=== PATIENT | female | born 1950 | race Caucasian/White ===

== ENCOUNTER 2024-02-04 20:37 | Inpatient (IN) | payer MEDICARE, SELFPAY ==
[2024-02-04] VITALS (14 sets, daily range): BP systolic 81–115; BP diastolic 33–90; BMI 27.1; BMI 25.9
[2024-02-04 16:09] LABS: Glucose - Point of Care 117 mg/dl (70-99)
--- NOTE | 2024-02-04 17:07 | ED.GENMED ---
History of Present Illness
General
Chief Complaint: Weakness
Source: patient and family
Time Seen by Provider: 02/04/24 16:38
Travel History
Have you had any contact with someone who has COVID-19?: No
Do you have any symptoms of coronavirus? Fever > 100 degrees, chills, cough, shortness of breath, sore throat, loss of taste or smell, muscle aches, or headache?: No
History of Present Illness
History of Present Illness:
73-year-old female with past medical history of colon cancer status post tumor removal, recent diagnosis of acute kidney injury needing dialysis and metabolic encephalopathy presenting to the emergency department via EMS from [facility] for
evaluation of left-sided weakness (triage states right-sided but family notes it is the left) but has been ongoing since yesterday. Patient's background history includes being diagnosed with colon cancer after having a bowel obstruction diagnosed
in July resulting in surgery to remove the tumor as well as multiple lymph nodes. Patient was treated with a course of chemotherapy that was supposed to be further preventative but got quite ill off of this chemo regimen and ended up in the
hospital for profound dehydration and since that time has developed worsening renal function to now needing dialysis and progressively declining. Family states that patient's drainage inspector was concerned for aluminum toxicity after not being able to
figure out why patient's labs were getting worse despite continuous treatment. Family notes that patient went from being fully functionable and living at home on her own 6 weeks ago to needing near [id number] care and continues to get sicker.
Patient's drainage inspector recommended she come to the emergency department today.
Past History
Past History
ED Past Medical History: Cancer, NIDDM and Renal failure
ED Past Surgical History: Bowel resection
Social History
Tobacco: Non-smoker
Alcohol: None
Drug: None
Living: penitentiary
Review of Systems
Review of Systems
All Other Systems: ROS reviewed and negative except as documented in HPI and ROS
Phy Exam
Physical Exam
Physical Exam:
GENERAL: Alert , in no apparent distress
EYE: clear conjunctiva b/l
HEAD: NCAT
ENT: o/p clr, mmm.
CARDIAC: Regular rate and rhythm .
LUNGS: Clear breath sounds bilaterally, no acute respiratory distress, no wheezes/rales/rhonchi, dialysis port to the left upper chest wall
ABDOMEN: Soft, without focal tenderness, no r/g, no cvat
back: Stage II pressure ulcer without surrounding cellulitic changes
Rectal exam: Chaperoned by ED MARGOT Hammer: Yellowish stool, heme-negative
NEUROLOGICAL: Alert and oriented x 3, 4 out of 5 strength to the right lower extremity when attempting to lift off the bed, 3 out of 5 strength to the left lower extremity when attempting to lift off the bed. Sensation is grossly intact to light
touch to the bilateral lower extremities. 5 out of 5 upper extremity strength bilateral with normal sensation. No dysmetria or dysarthria/aphasia
SKIN: Warm and dry, skin intact.
MUSCULOSKELETAL: No edema, well perfused.
PSYCH: Normal and appropriate interaction.
Scores
Heart Failure Risk
Heart Failure Risk Score: Not Applicable
Heart Score for Chest Pain Patients
STEMI patient?: Not applicable
Withdrawal Assessment of Alcohol
Withdrawal Assessment Completed?: Not applicable
Course
Orders/Labs/Results
Orders:
Orders
02/04/24 16:07
Electrocardiogram (*1) Urgent
Reason for Study: Fatigue / Weakness
EKG- Treatment ONCE
02/04/24 16:53
CT Head W/o Iv Contrast Urgent
Comment:
Reason For Exam: left sided weakness
Cardiac Monitoring- Treatment ONCE
02/04/24 17:10
Aluminum [S] Urgent
CPK [Creatine Phosphokinase] Urgent
Complete Blood Count/With Diff Urgent
Comprehensive Metabolic Panel Urgent
Lactic Acid Q4H
Comment: CANCEL 2nd LACTIC ACID IF 1st LACTIC ACID IS LESS THAN 2
PTT Urgent
Prothrombin Time Urgent
Blood Culture Q30M
KAM Source: Blood/Venous
Specimen Description:
Blood Culture Q30M
KAM Source: Blood/Venous
Specimen Description:
02/04/24 17:58
Blood Bank Products [* Blood Bank Products] Urgent
Blood Bank Products: *Packed RBC Leuko(PRBC's)
Quantity: 1
Transfuse Today: Yes
Reason: Anemia
02/04/24 18:16
Type+Screen Urgent
02/04/24 18:35
Blood Group&Type Urgent
BBK Wristband Number:
02/04/24 20:19
Admit/Transfer Patient As Directed
Co-Sign Provider:
Level of Care: Inpatient admission
Assign to:: IMU- Intermediate Care
Physician / Group: marino
Diagnosis: anemia, weakness, aluminum toxicity
Reason for Hospitalization: anemia, weakness, aluminum toxicity
Expected length of stay greater than two midnights?: Yes
ELOS- Estimated Length of Stay in days: 2
I certify the patient meets the requirements for IP care: Yes
02/04/24 20:20
Code Status As Directed
Resuscitation Status: Full Code
02/04/24 21:00
0.9% Sodium Chloride 500 ml [Nss] 500 ml IV 75 mls/hr
Abnormal Lab Results
02/04/24 02/04/24 02/04/24
16:08 17:10 18:16
RBC 2.68 L 10^6/uL
(4.20-5.40)
Hgb 6.8 L* g/dL
(12.0-16.0)
Hct 21.2 L %
(37.0-47.0)
MCV 79.1 L fL
(81.0-99.0)
MCH 25.4 L pg
(27.0-31.0)
MCHC 32.1 L g/dL
(33.0-37.0)
RDW 18.6 H %
(11.5-14.5)
Absolute Neuts (auto) 6.8 H 10^3/uL
(1.4-6.5)
Lymphocytes % 19.7 L %
(20.5-51.1)
PT 17.9 H Sec
(11.4-14.6)
APTT 43.5 H Sec
(23.4-35.0)
Potassium 2.7 L* mmol/L
(3.5-5.1)
Creatinine 1.8 H mg/dL
(0.6-1.0)
Glucose 122 H mg/dl
(70-99)
Calcium 8.2 L mg/dl
(8.4-10.2)
Alkaline Phosphatase 137 H U/L
(38-126)
Creatine Kinase 21 L U/L
(30-135)
Total Protein 5.7 L g/dl
(6.3-8.2)
Albumin 2.5 L g/dl
(3.5-5.0)
POC Glucose 117 H mg/dl
(70-99)
Crossmatch IS Only See Detail
02/04/24 17:10
02/04/24 17:10
Vital Signs
Initial and Last Documented VS:
Initial Vital Signs
Resp BP Pulse Ox
10 81/66 99
02/04/24 16:05 02/04/24 16:05 02/04/24 16:05
Last Documented Vital Signs
Temp Pulse Resp BP Pulse Ox
99.6 F 73 20 99/53 98
02/04/24 19:49 02/04/24 20:15 02/04/24 20:15 02/04/24 19:51 02/04/24 20:15
MDM/Problems Addressed
Differential Diagnosis Includes:
Electrolyte abnormality, CVA, malignancy, aluminum toxicity
MDM/Problems Addressed:
73-year-old female presenting to the emergency department for evaluation of progressively worsening weakness in the setting of newly diagnosed renal disease requiring dialysis. Patient had full dialysis session yesterday. It is unclear as to why
the patient was not sent to the emergency department yesterday with the weakness being noted. Patient states she believes she was not getting as much effort as she could have during therapy but there is fairly pronounced left-sided lower extremity
weakness on exam. Patient's hypotension here is reportedly her baseline per patient as well as family. Will check labs, CT of the head. Patient's daughter provided me with a telephone number for patient's drainage inspector and will contact them
following labs being resulted. Anticipate admission
Chronic conditions affecting care: Kidney disease and Cancer
Acute Exacerbation and/or Progression of Chronic Illness: Kidney disease and Cancer
*Radiology
Radiology exam reviewed: radiology read reviewed
*Pulse Oximetry
Patient hypoxic: no
*EKG
Interpreted by ED Provider?: Yes
Comparison EKG: no changes
Heart Rate: 78
Rate: normal
Ischemia: no ischemia
*Safety Relief Valve Technician Interpretation
Rate: normal
Rhythm: sinus
*Critical Care Note
Total Time (30-74mins, 75-104mins- exclusive of procedures): Not Applicable
Patient Management
Discussion with other providers: Hospitalist
Escalation/DeEscalation of care consider admission/obs:
Patient CT is unremarkable for any pathology. Hemoglobin 6.8. Potassium is 2.7 however patient was dialyzed today. Will leave this as do not want to over replete and cause any complications. Given patient's complexity combined with her acute
anemia plan to admit. Patient was consented for 1 unit of blood. Hospitalist team is aware and accepts for continued evaluation and treatment.
ED Attending Note
-
Portions of this chart may have been created with voice recognition software.� Occasional wrong word or��sound alike� substitutions may have occurred due to the inherent limitations of voice recognition software.
Discharge Plan
Departure
Patient Disposition: Admit
Date of Disposition: 02/04/24
Time of Disposition: 19:15
Presentation/result/management discussed w/ accepting MD/DO: Hospitalist
Discharge Problem:
Anemia, Acute hypokalemia, CKD (chronic kidney disease), Weakness
Prescriptions:
No Action
acetaminophen 325 mg Tablet
650 mg PO Q6H PRN (Reason: mild pain)
acetaminophen 650 mg Suppository
650 mg MO Q4H PRN (Reason: temp>100)
albuterol sulfate 2.5 mg /3 mL (0.083 %) Solution For Nebulization
2.5 mg INHALATION R Q6 PRN (Reason: sob/wheezing)
ondansetron HCl 8 mg Tablet
8 mg PO Q8H PRN (Reason: nausea/vomiting)
midodrine 5 mg Tablet
5 mg PO Q8H PRN (Reason: hypotention on dialysis days)
diphenoxylate-atropine 2.5-0.025 mg Tablet
2 tab PO Q4H
prochlorperazine maleate 10 mg Tablet
10 mg PO Q6H PRN (Reason: nausea/vomiting)
tramadol 50 mg Tablet
50 mg PO Q6H PRN (Reason: moderate pain)
diphenhydramine HCl 50 mg/mL Solution
25 mg IV MOWEFR
Rx Instructions:
1.5 hrs into dialysis treatment
lorazepam 0.5 mg Tablet
0.5 mg PO HS
ascorbic acid (vitamin C) 500 mg Tablet
500 mg PO BID
Santyl 250 unit/gram Ointment
1 applic TOPICAL QPM
Rx Instructions:
apply to sacroglutel area, apply to L ishium
Santyl 250 unit/gram Ointment
1 applic TOPICAL PRN PRN (Reason: would care/soilage/dislodgement)
Rx Instructions:
apply to sacroglutel area, apply to L ishium
Triphrocaps 1 mg Capsule
1 cap PO DAILY
insulin lispro [Humalog KwikPen Insulin] 100 unit/mL Insulin Pen
1 - 5 sliding scale dose SC QID
Rx Instructions:
if 150-199= 1; 200-249= 2; 250-299= 3; 300-349= 4; 350-399= 5
insulin glargine [Lantus Solostar U-100 Insulin] 100 unit/mL (3 mL) Insulin Pen
12 unit SC HS
octreotide acetate 500 mcg/mL (1 mL) Syringe
500 mcg SC TID
Referrals:
Elvie Baron NP [Family Provider] -
Interventions
Interventions:
*Risk Screen - Suicide Last Done: 02/04/24 16:07
*General Assessment Last Done: 02/04/24 16:07
*Neglect/Abuse Screening Last Done: 02/04/24 16:07
ED- Fall Risk Assessment Last Done: 02/04/24 16:12
*ED COVID-19 Vaccine History Last Done: 02/04/24 16:07
ED- Cardiac Assessment Last Done: 02/04/24 16:12
ED- Neurological Assessment Last Done: 02/04/24 16:12
ED- Pulmonary Assessment Last Done: 02/04/24 16:12
Discharge Date and Time
Print Language: EMIRATI
[2024-02-04 17:29] LABS: % Basophils 0.1 % (0-2); % Immature Granulocytes 0.4 % (0-0.5); % Lymphocytes 19.7 % (20.5-51.1); % Monocytes 6.7 % (1.7-9.3); % Neutrophils 73.1 % (42.2-75.2); Absolute Lymphocytes 1.8 10^3/uL (1.2-3.4); Absolute Monocytes 0.6 10^3/uL (0.1-0.6); Absolute Neutrophils 6.8 10^3/uL (1.4-6.5); Hematocrit 21.2 % (37.0-47.0); Mean Corp Hgb Conc. 32.1 g/dL (33.0-37.0); Mean Corpuscular Hgb 25.4 pg (27.0-31.0); Mean Corpuscular Volume 79.1 fL (81.0-99.0); Mean Platelet Volume 9.6 fL (7.4-10.4); Nucleated Red Blood Cells % 0 %; Platelet Count 175 10^3/uL (130-400); Red Blood Cell Count 2.68 10^6/uL (4.20-5.40); Red Cell Dist. Width 18.6 % (11.5-14.5); White Blood Cell Count 9.3 10^3/uL (4.8-10.8)
[2024-02-04 17:31] LABS: Hemoglobin 6.8 g/dL (12.0-16.0)
[2024-02-04 17:38] LABS: INR 1.46; PT 17.9 Sec (11.4-14.6)
[2024-02-04 17:39] LABS: APTT 43.5 Sec (23.4-35.0)
[2024-02-04 17:43] LABS: ALT (SGPT) 14 U/L (0-35); AST (SGOT) 20 U/L (14-36); Albumin 2.5 g/dl (3.5-5.0); Alkaline Phosphatase 137 U/L (38-126); Blood Urea Nitrogen 15 mg/dl (7-17); Calcium 8.2 mg/dl (8.4-10.2); Carbon Dioxide 25 mmol/L (22-30); Chloride 105 mmol/L (98-107); Creatine Phosphokinase 21 U/L (30-135); Estimated Creatinine Clearance 27 ml/min; Glucose 122 mg/dl (70-99); Lactic Acid 1.2 mmol/L (0.7-2.0); Potassium 2.7 mmol/L (3.5-5.1); Sodium 136 mmol/L (135-145); Total Bilirubin 0.9 mg/dl (0.2-1.3); Total Protein 5.7 g/dl (6.3-8.2); eGFR 29.38
--- NOTE | 2024-02-04 20:25 | HPS.HSE ---
Family Physician
-
Family Physician: Elvie Baron
Chief Complaint
-
weakness
History of Present Illness
73-year-old female with past medical history of colon cancer status post tumor removal, diabetes, CHRISTOPHER on dialysis Friday, Friday, Friday presenting for weakness.
Patient had a bowel obstruction in July with diagnosis of colon cancer status post colon resection with colostomy and reversal in September. She was functional at that time. She started preventative chemotherapy in December and received 3
sessions but got quite sick afterwards. She was dehydrated, making minimal urine, confused and having chronic diarrhea. She was admitted to [facility] and was started on hemodialysis there. While there she was found to be septic
secondary to UTI. She was also found to be anemic and had blood transfusion. EGD and colonoscopy were considered but not pursued. During the hospitalization patient also developed a sacral wound from the diarrhea.
She has been on hemodialysis ever since then and her lookback coordinator was concerned that her kidney function was not recovering and was concerned about aluminum toxicity.
She had aluminum level checked last week and was apparently 184. It was checked again a few days ago and it was 190. Patient's lookback coordinator was supposed to contact her lookback coordinator at [facility] regarding management of aluminum toxicity but this was
never done.
Patient has clinically deteriorated significantly since December. He was fully functional and living at home around 6 weeks ago and now requiring [id number] care and has been declining further. Her mental status at this time is normal. She
has been having chronic diarrhea which was initially dark while she was hospitalized but now an oily yellowish color. No nausea or vomiting or abdominal pain. Patient not sure if she is making any urine and does not feel when she urinates.
Patient has also been having increased weakness of her legs below the knees bilaterally over the past few days as well as weakness in her upper extremities with fine movements such as writing. She was noted to have weakness worse of her left upper
extremity. Denies any headache, blurry vision, double vision, numbness or tingling, sensory loss.
No fevers or chills. No chest pain or shortness of breath.
Patient does not smoke or drink alcohol.
No history of exposure to heavy metals.
Medical History
Past Medical History
Past Medical History: Reports Other (colon cancer status post tumor removal, diabetes, CHRISTOPHER on dialysis Friday, Friday, Friday )
Past Surgical History: Reports Bowel Resection
Social History
Tobacco: Non-smoker
Alcohol: None
Drug: None
Family History
Family History: Not pertinent
Allergies / Home Medications
Allergies reflects when Allergies were last updated in [facility].
Home Medications with original date entered in [facility]
Allergy/Medication List:
Allergies
Allergy/AdvReac Type Severity Reaction Status Date / Time
azithromycin Allergy Severe Shortness Verified 02/04/24 16:05
of Breath
nickel Allergy Mild Rash Verified 02/04/24 16:06
Home Medications
acetaminophen 325 mg tablet 650 mg PO Q6H PRN mild pain 02/04/24
acetaminophen 650 mg rectal suppository 650 mg NH Q4H PRN temp>100 02/04/24
albuterol sulfate 2.5 mg/3 mL (0.083 %) solution for nebulization 2.5 mg inhalation R Q6 PRN sob/wheezing 02/04/24
ascorbic acid (vitamin C) 500 mg tablet 500 mg PO BID 02/04/24
collagenase clostridium histo. 250 unit/gram topical ointment (Santyl) 1 applic topical PRN PRN would care/soilage/dislodgement 02/04/24
collagenase clostridium histo. 250 unit/gram topical ointment (Santyl) 1 applic topical QPM 02/04/24
diphenhydramine HCl 50 mg/mL injection solution 25 mg IV MOWEFR 02/04/24
diphenoxylate-atropine 2.5 mg-0.025 mg tablet 2 tab PO Q4H 02/04/24
insulin glargine 100 unit/mL (3 mL) subcutaneous pen (Lantus Solostar U-100 Insulin) 12 unit SC HS 02/04/24
insulin lispro 100 unit/mL subcutaneous pen (Humalog KwikPen (U-100) Insulin) 1 - 5 sliding scale dose SC QID 02/04/24
lorazepam 0.5 mg tablet 0.5 mg PO HS 02/04/24
midodrine 5 mg tablet 5 mg PO Q8H PRN hypotention on dialysis days 02/04/24
octreotide acetate 500 mcg/mL (1 mL) injection syringe 500 mcg SC TID 02/04/24
ondansetron HCl 8 mg tablet 8 mg PO Q8H PRN nausea/vomiting 02/04/24
prochlorperazine maleate 10 mg tablet 10 mg PO Q6H PRN nausea/vomiting 02/04/24
tramadol 50 mg tablet 50 mg PO Q6H PRN moderate pain 02/04/24
vitamin B complex and vitamin C no.20-folic acid 1 mg capsule (Triphrocaps) 1 cap PO DAILY 02/04/24
Review of Systems
-
A 12 point ROS was completed and negative except as noted: Yes
Constitutional: Reports No Symptoms
EENT: Reports No Symptoms
Respiratory: Reports No Symptoms
Cardiac: Reports No Symptoms
Abdomen/GI: Reports See HPI
: Reports No Symptoms
Musculoskeletal: Reports No Symptoms
Skin: Reports No Symptoms
Neurological: Reports See HPI
Endocrine: Reports No Symptoms
Hematologic/Lymphatic: Reports No Symptoms
Psych: Reports No Symptoms
Physical Exam
Vital Signs
Vital Signs
Temp Pulse Resp BP Pulse Ox
99.6 F 73 20 99/53 98
02/04/24 19:49 02/04/24 20:15 02/04/24 20:15 02/04/24 19:51 02/04/24 20:15
Physical Exam
General: Well Developed, Well Nourished and No Apparent Distress
HEENT: NormoCephalic, Moist mucous membranes and Atraumatic
Respiratory: Clear
Cardiac: S1/S2 and Regular Rhythm; No Murmur or Rub
GI: Soft, Non Tender, Non Distended and Normal Bowel Sounds; No Organomegaly
Rectal: Deferred by Provider
Musculoskeletal: No Clubbing, No Cyanosis, No Edema and Other (bilteral upper and lower extremity weakness )
Skin: No Rash
Neuro: Nonfocal/grossly intact
Laboratory Results
-
02/04/24 17:10
02/04/24 17:10
Laboratory Results
PT 17.9 Sec (11.4-14.6) H 02/04/24 17:10
INR 1.46 02/04/24 17:10
APTT 43.5 Sec (23.4-35.0) H 02/04/24 17:10
Lactic Acid Cancelled 02/04/24 21:00
Total Bilirubin 0.9 mg/dl (0.2-1.3) 02/04/24 17:10
AST 20 U/L (14-36) 02/04/24 17:10
ALT 14 U/L (0-35) 02/04/24 17:10
Alkaline Phosphatase 137 U/L (38-126) H 02/04/24 17:10
Data Reviewed
-
Lab Data: Labs Reviewed by me
Old Records: Reviewed
Impression/Plan
-
IMPRESSION:
PLAN:
# Microcytic anemia possibly due to blood loss from diarrhea in the setting of recent colon cancer status post colon resection/aluminum toxicity
# Chronic diarrhea possibly due to short gut/ malabsorption
-Hemoglobin 6.8, unknown baseline but was around 8 during her previous hospitalization
-1 unit of blood
-Check fecal occult, iron studies, B12 and folate
-Continue Lomotil, octreotide
# Colon cancer status post resection, status post chemotherapy
# Acute kidney injury on hemodialysis Friday, Friday, Friday
# Possible aluminum toxicity unclear etiology
-Patient received dialysis today
-Aluminum level pending
-Nephrology consulted
-Bladder scan protocol
-Continue Benadryl as needed during dialysis
-Patient's lookback coordinator is Dr. Gould ([phone])
# Untreated sacral wound secondary to chronic diarrhea
-Did not appear infected
-Wound care consulted
# Hypotension in the setting of dialysis
-250 cc IV bolus
-Blood cultures pending
-Patient not clinically septic
-Continue midodrine
# Upper/lower extremity muscle weakness possibly due to aluminum toxicity
-On examination she has bilateral muscle weakness, no other focal abnormalities to suggest CVA
-CT head no acute abnormality
# Hypokalemia
-Do not replete since she is dialysis dependent
Type 2 diabetes
-Continue Lantus 12 units
-Insulin sliding scale
Type 2 diabetes
-Continue Lantus 12 units
-Insulin sliding scale
Anxiety
-Continue lorazepam
Full code
DVT prophylaxis�SCDs
Renal diet
[2024-02-04] MEDS: NSS 500 IV (20:34)
[2024-02-04 22:36] LABS: Iron 38 ug/dl (37-170)
[2024-02-04 22:47] LABS: Percent Saturation 31 % (20-50); Total Iron Binding Capacity 122 ug/dl (265-497)
[2024-02-04] MEDS: ATIVAN 0.5 MG PO (22:47)
[2024-02-04] MEDS: LANTUS 0.119999999999999996 UNITS SC (22:48)
[2024-02-04] MEDS: SANDOSTATIN 0.5 MCG SC (22:57)
--- NOTE | 2024-02-04 23:37 | PTCARENOTE ---
Pt arrived from the Emergency room via stretcher at 2130 accompanied by her daughter and ER nurse. She had blood infusing upon arrival and was tolerating it well. Monitor showed NSR, and pt had no complaints other than tiredness and weakness.
Skin warm and dry, had a foam dressing on her sacrum for stage 2 decubital ulcers on her sacral area. She had not eaten since 0800 and was due for night time insulin. When asked the admission questions about coughing when she eats/ drinks she said
yes. Did note that when she brushed her teeth she swallowed water and coughed after wards. With her sitting up in bed gave her applesauce and crackers with peanut butter without any coughing or difficulty. Gave her nectar thickened water with
her medications and she swallowed that without coughing. Reminded to tuck her chin with swallowing. Will continue to monitor pt.
[2024-02-05] VITALS (27 sets, daily range): BP systolic 63–128; BP diastolic 30–75; PULSE 69; O2SAT 97; BMI 26.1
[2024-02-05 00:18] LABS: Vitamin B12 > 1000 pg/ml (239-931)
[2024-02-05] MEDS: LOMOTIL 2 TABLET PO ×6 (00:35→20:09)
[2024-02-05] MEDS: NSS 500 IV ×2 (04:24→12:19)
[2024-02-05 04:51] LABS: % Basophils 0.3 % (0-2); % Eosinophils 0.1 % (0-6); % Immature Granulocytes 0.3 % (0-0.5); % Lymphocytes 31.5 % (20.5-51.1); % Monocytes 8.9 % (1.7-9.3); % Neutrophils 58.9 % (42.2-75.2); Absolute Lymphocytes 2.2 10^3/uL (1.2-3.4); Absolute Monocytes 0.6 10^3/uL (0.1-0.6); Absolute Neutrophils 4.1 10^3/uL (1.4-6.5); Hematocrit 23.1 % (37.0-47.0); Hemoglobin 7.2 g/dL (12.0-16.0); Mean Corp Hgb Conc. 31.2 g/dL (33.0-37.0); Mean Corpuscular Hgb 25.4 pg (27.0-31.0); Mean Corpuscular Volume 81.6 fL (81.0-99.0); Nucleated Red Blood Cells % 0 %; Platelet Count 155 10^3/uL (130-400); Red Blood Cell Count 2.83 10^6/uL (4.20-5.40); Red Cell Dist. Width 17.4 % (11.5-14.5); White Blood Cell Count 6.9 10^3/uL (4.8-10.8)
[2024-02-05 05:26] LABS: ALT (SGPT) 11 U/L (0-35); AST (SGOT) 18 U/L (14-36); Albumin 2.1 g/dl (3.5-5.0); Alkaline Phosphatase 114 U/L (38-126); Blood Urea Nitrogen 20 mg/dl (7-17); Carbon Dioxide 26 mmol/L (22-30); Chloride 104 mmol/L (98-107); Estimated Creatinine Clearance 16 ml/min; Glucose 103 mg/dl (70-99); Potassium 2.6 mmol/L (3.5-5.1); Sodium 139 mmol/L (135-145); Total Bilirubin 0.8 mg/dl (0.2-1.3); Total Protein 5.1 g/dl (6.3-8.2)
[2024-02-05 07:42] LABS: Glucose - Point of Care 111 mg/dl (70-99)
[2024-02-05] MEDS: NOVOLOG FLEXPEN-LOW RESISTANCE SC (08:03)
[2024-02-05 08:12] LABS: Glucose - Point of Care 123 mg/dl (70-99)
[2024-02-05] MEDS: VITAMIN C 500 MG PO ×2 (08:37→20:09)
[2024-02-05] MEDS: NEPHROCAP 1 CAPSULE PO (08:37)
[2024-02-05] MEDS: KCL 20 MEQ PO ×2 (08:38→08:54)
[2024-02-05] MEDS: SANDOSTATIN 0.5 MCG SC ×3 (08:38→22:20)
[2024-02-05 08:44] LABS: Glycohemoglobin (HgbA1c) 6.3 % (4.0-5.6)
--- NOTE | 2024-02-05 09:04 | W.CON.NEPH ---
Consultation
-
Date/Time Consultation Requested: 02/05/2024 7 AM
Date/Time Consultation Performed: 02/05/2024 9:00
Requesting Provider: Chely
Performing Provider: Traci
Reason for Consultation: End-stage renal disease
Medical History
-
Chief Complaint: End-stage renal disease
History of Present Illness:
73-year-old female with a history of acute renal failure following chemotherapy for colon CA and now dialysis dependent at [place] presented to the emergency room last evening for weakness.
Patient had a bowel obstruction in July with diagnosis of colon cancer status post colon resection with colostomy and reversal in September. She was functional at that time. She started preventative chemotherapy in December and received 3
sessions but got quite sick afterwards. She wasmaking minimal urine, confused and having chronic diarrhea. She was admitted to [facility] and was started on hemodialysis there. While there she was found to be septic secondary to UTI.
She was also found to be anemic and had blood transfusion. EGG colonoscopy were considered but not pursued. During the hospitalization patient also developed a sacral wound from the diarrhea.
She has been on hemodialysis ever since then and her kettle chipper was concerned that her kidney function was not recovering and was concerned about aluminum toxicity.
She had aluminum level checked last week and was apparently 184. It was checked again a few days ago and it was 190. Patient's kettle chipper was supposed to contact her kettle chipper at [facility] regarding management of aluminum toxicity but this was
never done.
Patient has clinically deteriorated significantly since December. He was fully functional and living at home around 6 weeks ago and now requiring [id number] care and has been declining further. Her mental status at this time is normal. She
has been having chronic diarrhea which was initially dark while she was hospitalized but now an oily yellowish color. No nausea or vomiting or abdominal pain. Patient not sure if she is making any urine and does not feel when she urinates.
Patient has also been having increased weakness of her legs below the knees bilaterally over the past few days as well as weakness in her upper extremities with fine movements such as writing. She was noted to have weakness worse of her left upper
extremity. Denies any headache, blurry vision, double vision, numbness or tingling, sensory loss.
Past Medical History
Past Medical History: Reports Other (colon cancer status post tumor removal, diabetes, CHRISTOPHER on dialysis Friday, Friday, Friday )
Past Surgical History: Reports Bowel Resection
Diabetes
Chronic hypotension
Ongoing chronic diarrhea
Social History
Tobacco: Non-Smoker
Drug: None
Family History
No CKD
Allergies / Home Medications
Allergy/AdvReac Type Severity Reaction Status Date / Time
azithromycin Allergy Severe Shortness Verified 02/04/24 16:05
of Breath
nickel Allergy Mild Rash Verified 02/04/24 16:06
�Medication �Instructions �Recorded �Confirmed �Type
acetaminophen 325 mg tablet 650 mg PO Q6H PRN mild pain 02/04/24 02/04/24 History
acetaminophen 650 mg rectal 650 mg MD Q4H PRN temp>100 02/04/24 02/04/24 History
suppository
albuterol sulfate 2.5 mg/3 mL 2.5 mg inhalation R Q6 PRN 02/04/24 02/04/24 History
(0.083 %) solution for nebulization sob/wheezing
ascorbic acid (vitamin C) 500 mg 500 mg PO BID 02/04/24 02/04/24 History
tablet
collagenase clostridium histo. 250 1 applic topical PRN PRN would 02/04/24 02/04/24 History
unit/gram topical ointment (Santyl) care/soilage/dislodgement
collagenase clostridium histo. 250 1 applic topical QPM 02/04/24 02/04/24 History
unit/gram topical ointment (Santyl)
diphenhydramine HCl 50 mg/mL 25 mg IV MOWEFR 02/04/24 02/04/24 History
injection solution
diphenoxylate-atropine 2.5 2 tab PO Q4H 02/04/24 02/04/24 History
mg-0.025 mg tablet
insulin glargine 100 unit/mL (3 12 unit SC HS 02/04/24 02/04/24 History
mL) subcutaneous pen (Lantus
Solostar U-100 Insulin)
insulin lispro 100 unit/mL 1 - 5 sliding scale dose SC QID 02/04/24 02/04/24 History
subcutaneous pen (Humalog KwikPen
(U-100) Insulin)
lorazepam 0.5 mg tablet 0.5 mg PO HS 02/04/24 02/04/24 History
midodrine 5 mg tablet 5 mg PO Q8H PRN hypotention on 02/04/24 02/04/24 History
dialysis days
octreotide acetate 500 mcg/mL (1 500 mcg SC TID 02/04/24 02/04/24 History
mL) injection syringe
ondansetron HCl 8 mg tablet 8 mg PO Q8H PRN nausea/vomiting 02/04/24 02/04/24 History
prochlorperazine maleate 10 mg 10 mg PO Q6H PRN nausea/vomiting 02/04/24 02/04/24 History
tablet
tramadol 50 mg tablet 50 mg PO Q6H PRN moderate pain 02/04/24 02/04/24 History
vitamin B complex and vitamin C 1 cap PO DAILY 02/04/24 02/04/24 History
no.20-folic acid 1 mg capsule
(Triphrocaps)
Review of Systems
-
History Source: Patient
All other systems: Negative unless noted
Constitutional: Fatigue
EENT: No Symptoms
Respiratory: No Symptoms
Cardiac: No Symptoms
Abdomen/GI: Diarrhea
: No Symptoms
Musculoskeletal: No Symptoms
Skin: No Symptoms
Neurological: No Symptoms
Endocrine: No Symptoms
Hematologic/Lymphatic: No Symptoms
Physical Exam
Vital Signs
Vital Signs
Temp Pulse Resp BP Pulse Ox
98.4 F 68 13 93/37 99
02/05/24 07:31 02/05/24 08:15 02/05/24 08:15 02/05/24 08:07 02/05/24 08:15
Lab Results
02/05/24 04:22
02/05/24 04:22
WBC 6.9 10^3/uL (4.8-10.8) 02/05/24 04:22
RBC 2.83 10^6/uL (4.20-5.40) L 02/05/24 04:22
Hgb 7.2 g/dL (12.0-16.0) L 02/05/24 04:22
Hct 23.1 % (37.0-47.0) L 02/05/24 04:22
Plt Count 155 10^3/uL (130-400) 02/05/24 04:22
Sodium 139 mmol/L (135-145) 02/05/24 04:22
Potassium 2.6 mmol/L (3.5-5.1) L* 02/05/24 04:22
Chloride 104 mmol/L (98-107) 02/05/24 04:22
Carbon Dioxide 26 mmol/L (22-30) 02/05/24 04:22
BUN 20 mg/dl (7-17) H 02/05/24 04:22
Creatinine 2.6 mg/dL (0.6-1.0) H 02/05/24 04:22
eGFR 18.90 02/05/24 04:22
Glucose 103 mg/dl (70-99) H 02/05/24 04:22
Calcium 8.0 mg/dl (8.4-10.2) L 02/05/24 04:22
Albumin 2.1 g/dl (3.5-5.0) L 02/05/24 04:22
Physical Exam
General: AOx3, No Distress and Nontoxic
HEENT: EOMI, Conjunctivae Clear, Ear/Nose Intact, Hearing Normal, Oropharynx Clear/Moist, Dentition Intact, Neck Supple, Trachea Midline, No JVD and No Thyromegaly
Respiratory: Clear
Cardiac: S1/S2 and Regular Rate/Rhythm (tirso)
Breast: Deferred by me
Abdomen: Soft, Nontender, Nondistended, Normal Bowel Sounds and No Hepatosplenomegaly
Rectal: Deferred by Provider
Genito-urinary: No Costovertebral Tender
Musculoskeletal: No Clubbing, No Cyanosis and No Edema
Skin: No Rash, Warm, Dry, No Clubbing, No Cyanosis, Normal Turgor and No Bruising
Neuro: Nonfocal/Grossly Intact
Hematologic/Lymphatic: No Cervical Lymphadenopathy, No Submandibular Lymphadenopathy, No Supraclavicular Lymphadenopathy and Other (Left IJ HD catheter, Right ACW mediport)
Psych: Mood/afflect pleasant, Insight/judgement good and Appropriate
Assessment/Plan
-
Impression:
Weakness
Hypokalemia
Dialysis dependent acute kidney injury following chemotherapy for colon cancer (since 10/02)
Left IJ hemodialysis cath
Right anterior chest wall Mediport
Chronic diarrhea
Suspected aluminum toxicity
History of colon cancer with colostomy and reversal in August 2023
Diabetes
Ongoing hypotension on midodrine support
Anemia
Sacral wound
Upper/lower extremity muscle weakness possibly due to aluminum toxicity
Anxiety
Plan:
-Replete K
-Will arrange for dialysis tomorrow,orders provided
-Maintain midodrine for chronic hypotension
-Pending aluminum level
-MAGDIEL for anemia
-Currently on normal saline for blood pressure support and suspected volume depletion from GI loss
Data Reviewed
-
CT Scan: Report Reviewed by me (CT scan of head report reviewe)
Medical Tests (Nuc Med, Echo etc): Other (EKG report reviewed normal sinus rhythm at 78 beats per minute)
Labs: Labs Reviewed by me
Old Records: Requested
--- NOTE | 2024-02-05 11:28 | WOUNDNOTE ---
PLANTAR ASPECT OF FEET
--- NOTE | 2024-02-05 11:39 | WOUNDNOTE ---
WO RN note: Patient admitted with weakness
See H&P for complete history.
PMH: Colon caner, CHRISTOPHER post chemo
Wound Location and type/assessment: Patient admitted with: Stage 2 sacral pressure injury which she reports during a recent hospitalization. The wound is stage 2 and largest open area is friable. Scattered open areas also noted. Patient prefers
wearing diaper due to frequent diarrhea but reports this has slowed since admission. Patient also has very dry skin on feet and heels. She states her entire body was dry and flakey a few weeks ago but has since resolved. Heels are blanchable. She is
able to turn in bed.
Appetite: Reports good appetite and ate 100% of breakfast.
Pressure redistribution devices in place: Centrella Max Air. Heels off-loaded on pillows.
Plan: Sacral wound cleaned with saline and Xeroform and 5 layer sacral border foam applied. Aquaphor to bilateral feet daily. Due to flakey red skin, adhesive foam was not applied. Heels were off-loaded with pillows.
Will confirm orders with hospitalist and update nurse.
Updated care plan and discharge instructions and will follow as needed.
Note to case management of equipment requested for discharge: Patient should have air mattress at discharge
[2024-02-05 12:29] LABS: Glucose - Point of Care 174 mg/dl (70-99)
[2024-02-05] MEDS: NOVOLOG FLEXPEN-LOW RESISTANCE 1 UNITS SC (12:58)
--- NOTE | 2024-02-05 13:07 | W.PN.HOSP.TC ---
Today's Communication/Plan
-
see outlined plan
Assessment / Plan
Assessment / Plan
Assessment:
Microcytic anemia
- can be seen in aluminium toxicity (iron resistant)
- no clear evidence of blood loss
- s/p 1 unit PRBC; Hb 7.2
- monitor for additional transfusion needs
Hx of colon cancer status post colon resection
Chronic diarrhea possibly due to short gut/ malabsorption
- continue Lomotil, octreotide
ESRD on HD M/W/F
- Nephrology following
- prn Midodrine
Aluminum toxicity
- unclear etiology; per OP [employer] Miner (Dr. Fields), not related to HD center water supply. patient not on aluminum based binders
- Aluminum level pending
- typical treatment includes chelation but not able to excrete in dialysis patient
- option would include chelation + PLEX
- Nephrology coordinating with Dr. Fields regarding need for transfer vs OP setup of this treatment. This is a chronic issue overall.
Stage 2 sacral pressure injury - POA
- wound care service following
Hypotension in the setting of dialysis, chronic diarrhea
- follow cultures
- continue midodrine
Upper/lower extremity muscle weakness possibly due to aluminum toxicity, also hypokalemia
- replete K+ directed by Nephrology
- CT head no acute abnormality
Type 2 diabetes
- continue Lantus 12 units
- SSI
- A1c: 6.3%
Anxiety
- continue lorazepam
DVT ppx: SCDs
Code: Full
Anticipated Discharge: > 48 hours
Subjective/Interval History
-
Date of Service: February 05, 2024
no complaints at present
Objective Data
-
Labs:
Laboratory Results
02/05/24 02/05/24
04:22 16:00
WBC 6.9
Hgb 7.2 L
Hct 23.1 L
Plt Count 155
Sodium 139 Pending
Potassium 2.6 L* Pending
Chloride 104 Pending
Carbon Dioxide 26 Pending
BUN 20 H
Creatinine 2.6 H
Glucose 103 H
Calcium 8.0 L
Total Bilirubin 0.8
AST 18
ALT 11
Alkaline Phosphatase 114
Vital Signs:
Vital Signs
Temp Pulse Resp BP Pulse Ox
98.6 F 65 16 87/56 99
02/05/24 11:21 02/05/24 10:15 02/05/24 10:15 02/05/24 10:02 02/05/24 10:15
I&O
02/04/24 02/05/24 02/06/24
06:59 06:59 06:59
Intake Total 1025 / 1025 720 / 720
Balance 1025 / 1025 720 / 720
Physical Exam
-
General: No Apparent Distress
HEENT: Normocephalic and Atraumatic
Respiratory: Negative Wheezes
Cardiac: Regular Rhythm and S1/S2
GI: Soft and Nontender
Genito-urinary: No Costovertebral Tender
Neuro: AO x 3
Psych: Calm
Data Reviewed
-
Total Time Spent with Patient (in minutes): 41
Labs: Labs Reviewed by me
[2024-02-05] MEDS: HYDROPHOR 1 APPLIC TOPICAL (15:02)
[2024-02-05] MEDS: ProAmatine 5 MG PO (15:03)
--- NOTE | 2024-02-05 16:28 | CM ---
Patient from [facility] SNF with Hx ESRD on HD with Dx Microcytic anemia, Stage 2 sacral pressure injury, Aluminum toxicity. PT recommends acute vs skilled. OT Eval pending.
Met with patient & daughter Hazel;
the patient was at [facility] then dicharged to [facility] for short term rehab and receiving HD there.
She has no outpatient HD setup.
Prior to last admission & SNF:
the patient resided alone in a 1 story house with 2 WAYLON.
She had been independent at home with ADLs/ambulation.
DME - [facility]
Pharmacy - [facility]
The patient and daughter do not want return to [facility] due to poor care there.
Provided SNF list and discussed alternate SNF options of [facility], [facility], [facility] that take HD patients, and provided ratings. Daughter may tour the SNFs and decide.
Per Dr Mo, possible need for acute to acute transfer to [facility] for Tx aluminum toxicity with plasma exchange and chelation therapies that are not done here.
If not needing acute to acute transfer for Tx of aluminum tox, then may benefit from physiatry consult.
Phone message to [facility] Liaison to review chart for possible referral.
Plan follow patient's mobility needs.
Plan follow up possible transfer to [place].
[2024-02-05] MEDS: KLOR-CON 40 MEQ PO (17:08)
[2024-02-05] MEDS: SANTYL OINTMENT TOPICAL (17:12)
[2024-02-05 17:41] LABS: Glucose - Point of Care 231 mg/dl (70-99)
[2024-02-05] MEDS: NOVOLOG FLEXPEN-LOW RESISTANCE 2 UNITS SC (17:42)
[2024-02-05 18:29] LABS: Carbon Dioxide 24 mmol/L (22-30); Chloride 104 mmol/L (98-107); Potassium 3.1 mmol/L (3.5-5.1); Sodium 132 mmol/L (135-145)
[2024-02-05 21:40] LABS: Glucose - Point of Care 127 mg/dl (70-99)
[2024-02-05] MEDS: ATIVAN 0.5 MG PO (22:19)
[2024-02-05] MEDS: LANTUS 0.119999999999999996 UNITS SC (22:19)
[2024-02-06] VITALS (85 sets, daily range): BP systolic 74–131; BP diastolic 34–94; BMI 25.9
[2024-02-06] MEDS: LOMOTIL 2 TABLET PO ×6 (01:04→23:28)
[2024-02-06] MEDS: FLUSH (NSS) 1 FLUSH IV (05:38)
[2024-02-06] MEDS: ProAmatine 5 MG PO (07:10)
[2024-02-06] MEDS: NOVOLOG FLEXPEN-LOW RESISTANCE SC ×3 (08:00→17:30)
[2024-02-06 08:10] LABS: Glucose - Point of Care 99 mg/dl (70-99)
[2024-02-06 08:27] LABS: Hematocrit 23.7 % (37.0-47.0)
[2024-02-06] MEDS: RETACRIT 10000 UNITS IV (09:01)
[2024-02-06 09:27] LABS: Blood Urea Nitrogen 34 mg/dl (7-17); Calcium 7.6 mg/dl (8.4-10.2); Carbon Dioxide 20 mmol/L (22-30); Chloride 108 mmol/L (98-107); Estimated Creatinine Clearance 12 ml/min; Glucose 89 mg/dl (70-99); Potassium 3.5 mmol/L (3.5-5.1); Sodium 133 mmol/L (135-145); eGFR 12.79
[2024-02-06] MEDS: HEPARIN 500 UNITS IV ×2 (09:55→09:56)
--- NOTE | 2024-02-06 10:16 | W.PN.NEPH.HD ---
Assessment
-
Seen on HD. no new complaints. VSS, access ok
HD again tomorrow, higher flux membrane
Progress Note - Hemodialysis
-
Date of Service: February 06, 2024
Duration: 15 minutes and 3 hours
Potassium Bath: 4
Calcium Bath: 2.5
Opti-Dialyzer: 160
Ultrafiltration: Other (0.5kg)
Blood Flow: 400
Dialysate Flow: 600
Heparin: 1000 x 2
EPO: 83340 units
--- NOTE | 2024-02-06 10:19 | W.PN.HOSP.TC ---
Today's Communication/Plan
-
1 unit PRBC
HD today, and tomorrow
await further info from [facility] about transfer
Assessment / Plan
Assessment / Plan
Assessment:
Microcytic anemia
- can be seen in aluminium toxicity (iron resistant)
- no clear evidence of blood loss
- s/p 1 unit PRBC; Hb 7.0; additional 1 unit PRBC
- monitor for additional transfusion needs
Hx of colon cancer status post colon resection
Chronic diarrhea possibly due to short gut/ malabsorption
- continue Lomotil, octreotide
ESRD on HD M//
- Nephrology following
- prn Midodrine
symptomatic Aluminum toxicity neuropathy
- unclear etiology; per OP [employer] (Dr. Fields), not related to HD center water supply. patient not on aluminum based binders
- Aluminum level pending
- typical treatment includes chelation but not able to excrete in dialysis patient with traditional HD, but might be need hi-Flux HD.
- another option would include chelation + PLEX
- Nephrology coordinating with Dr. Fields regarding need for transfer to [facility]
- Dr. Mo spoke to Dr. Becerra - [facility] regarding transfer; still pending call back on [facility] capability to treat this chronic issue.
Stage 2 sacral pressure injury - POA
- wound care service following
Hypotension in the setting of dialysis, chronic diarrhea
- follow cultures
- continue midodrine
Upper/lower extremity muscle weakness possibly due to aluminum toxicity, also hypokalemia
- replete K+ directed by Nephrology
- CT head no acute abnormality
Type 2 diabetes
- continue Lantus 12 units
- SSI
- A1c: 6.3%
Anxiety
- continue lorazepam
DVT ppx: SCDs
Code: Full
Anticipated Discharge: 24 - 48 hours
Subjective/Interval History
-
Date of Service: February 06, 2024
no new complaints
Objective Data
-
Labs:
Laboratory Results
02/06/24
08:15
Hgb 7.0 L
Hct 23.7 L
Sodium 133 L
Potassium 3.5
Chloride 108 H
Carbon Dioxide 20 L
BUN 34 H
Creatinine 3.6 H
Glucose 89
Calcium 7.6 L
Vital Signs:
Vital Signs
Temp Pulse Resp BP Pulse Ox
98.3 F 68 18 105/45 99
02/06/24 09:57 02/06/24 09:57 02/06/24 09:57 02/06/24 09:57 02/06/24 08:13
I&O
02/05/24 02/06/24 02/07/24
06:59 06:59 06:59
Intake Total 1025 / 1025 960 / 960 0 / 0
Balance 1025 / 1025 960 / 960 0 / 0
Physical Exam
-
General: No Apparent Distress
HEENT: Normocephalic and Atraumatic
Respiratory: Negative Wheezes or Rales
Cardiac: Regular Rhythm and S1/S2
GI: Soft and Nontender
Genito-urinary: No Costovertebral Tender
Musculoskeletal: No Edema
Neuro: AO x 3
Hematologic / Lymphatic: No Lymphadenopathy
Psych: Calm
Data Reviewed
-
Total Time Spent with Patient (in minutes): 41
Labs: Labs Reviewed by me
[2024-02-06] MEDS: HEPARIN 4600 UNITS INTRACATH (11:20)
[2024-02-06] MEDS: NEPHROCAP 1 CAPSULE PO (11:56)
[2024-02-06] MEDS: SANDOSTATIN 0.5 MCG SC (11:56)
[2024-02-06] MEDS: VITAMIN C 500 MG PO ×2 (11:57→19:54)
[2024-02-06] MEDS: HYDROPHOR 1 APPLIC TOPICAL (11:57)
[2024-02-06] MEDS: BENADRYL 25 MG IV (11:57)
[2024-02-06] MEDS: LOMOTIL PO (11:57)
[2024-02-06 12:13] LABS: Glucose - Point of Care 71 mg/dl (70-99)
--- NOTE | 2024-02-06 14:34 | PN.CDI ---
CDI
- -
CDI:
Physician Documentation Request
Admit Date: 02/04/24 20:37
Dear Doctor Chely,
Pt admitted with anemia.
02/04 Nutrition note, 'With weight loss of > 10% in 6 months and observed muscle and fat wasting pt meets AND/ASPEN criteria for moderate protein calorie malnutrition of chronic illness'.
Please please provide in your progress note the diagnosis based on the above findings and your assessment:
Moderate protein calorie malnutrition
Mild protein calorie malnutrition
Other (please specify)
[place] Criteria ([facility] Hospitalist 2017)
2 or more criteria must be present for either
non severe or severe malnutrition
Note that the criteria differs related to the
presence of an acute or chronic illness
Chronic Illness
Energy Intake Non Severe: <75% for >1 month
Severe: <75% for >1 month
Weight Loss Non Severe: 5% over 1 month
7.5% over 3 months
10% over 6 months
20% over 1 year
Severe: >5% over 1 month
>7.5% over 3 months
>10% over 6 months
>20% over 1 year
Body Fat Non Severe: Mild Loss
Severe: Severe Loss
Muscle Mass Non Severe: Mild Loss
Severe: Severe Loss
Fluid Accumulation Non Severe: Mild Accumulation
Severe: Moderate to severe
accumulation
Reduced Cyber Security Systems Engineer Strength Non Severe: N/A
Severe: Measurably reduced
Use of terms such as suspected, likely, concern for, or probable (associated with a specific diagnosis that is being evaluated, monitored, or treated as if it exists) are acceptable and can be coded in the inpatient setting, when documented at the
time of discharge.
Thank you,
Veronica LUON,RN,CCDS
CDI Specialist
Available via Pinon text
Please use your independent medical judgment in providing your response.
--- NOTE | 2024-02-06 15:32 | CM ---
Patient from [facility] with Hx ESRD on HD with Dx Microcytic anemia, Stage 2 sacral pressure injury, Aluminum toxicity. PT recommends acute vs skilled. OT Eval pending.
Patient not accepted by [facility] at this time.
[facility] Dr [facility] that might be able to handle this patients aluminum treatment with specific dialysis/daily dialysis.
Spoke with Susi, nurse [facility] (Ph [phone], fax [phone]); the Lapping Machine Tender who does Admissions is [facility] and she is off today. CM can fax referral and they will respond 02/08---> sent via Active Fax. If patient is accepted in their
TCU, the CM will need to make referral to their HD unit for the HD chair.
Plan follow up with [facility] Mon 02/08 for acceptance.
--- NOTE | 2024-02-06 15:40 | W.PN.UPDATE ---
Update Note
Progress Note Update
Will recommend that transfer to [facility] still be the plan
For now will await next aluminum level. If < 200 then will try desfuroxamine test
Next HD tomorrow
She will need a facility that will be able to provide DFO at dialysis
[2024-02-06] MEDS: SANTYL OINTMENT 1 APPLIC TOPICAL (17:05)
[2024-02-06 17:37] LABS: Glucose - Point of Care 129 mg/dl (70-99)
[2024-02-06] MEDS: LANTUS 0.119999999999999996 UNITS SC (19:54)
[2024-02-06] MEDS: ATIVAN 0.5 MG PO (19:54)
[2024-02-06 20:07] LABS: Glucose - Point of Care 174 mg/dl (70-99)
[2024-02-07] VITALS (10 sets, daily range): BP systolic 93–107; BP diastolic 38–60; BMI 27.5
[2024-02-07] MEDS: LOMOTIL 2 TABLET PO ×5 (04:33→23:52)
--- NOTE | 2024-02-07 04:46 | PTCARENOTE ---
No acute events overnight. Plan for dialysis today.
[2024-02-07 07:47] LABS: Glucose - Point of Care 79 mg/dl (70-99)
[2024-02-07] MEDS: NOVOLOG FLEXPEN-LOW RESISTANCE SC ×2 (08:16→12:14)
[2024-02-07] MEDS: LOMOTIL PO (08:17)
[2024-02-07] MEDS: HEPARIN 500 UNITS IV ×2 (08:20→09:20)
[2024-02-07 08:57] LABS: Hematocrit 27.3 % (37.0-47.0); Hemoglobin 8.4 g/dL (12.0-16.0)
[2024-02-07 09:14] LABS: Potassium 3.3 mmol/L (3.5-5.1)
[2024-02-07 09:15] LABS: Carbon Dioxide 25 mmol/L (22-30); Chloride 104 mmol/L (98-107); Sodium 133 mmol/L (135-145)
[2024-02-07] MEDS: CATHFLO/ACTIVASE 2 MG IV ×2 (09:19)
--- NOTE | 2024-02-07 09:49 | PTCARENOTE ---
Assumed care of pt from night RN, pt AAOx3, no c/o pain or discomfort so far this shift. Pt currently receiving HD. Appetite fair for breakfast. Repositioned in bed frequently, incontinence care completed as needed. Will continue to monitor through
shift.
--- NOTE | 2024-02-07 10:19 | W.PN.NEPH.HD ---
Assessment
-
Seen on HD. no complaints. VSS, access poor flow.
will need CVC exchange friday
awaiting new aluminum level (drawn 02/03...) to decide on DFO test dose (level needs to be less than 200)
will need a OP HD unit that can provide DFO. may not need 6 days HD/week if Al level is <200.
Progress Note - Hemodialysis
-
Date of Service: February 07, 2024
--- NOTE | 2024-02-07 10:23 | W.PN.NEPH.HD ---
Progress Note - Hemodialysis
-
Date of Service: February 07, 2024
Duration: 30 minutes and 2 hours
Potassium Bath: 4
Calcium Bath: 2.5
Opti-Dialyzer: 180
Ultrafiltration: Other (0.5kg)
Blood Flow: 400
Dialysate Flow: 600
Heparin: 500 x2
EPO: 0
--- NOTE | 2024-02-07 10:30 | CM ---
Chart reviewed and plan is for possible [facility] on Thursday 02/08 admissions. Patient needs updated PT/OT notes for Auth.
Plan; Patient needs updated PT/OT for Auth.
[2024-02-07] MEDS: HEPARIN 4600 UNITS INTRACATH (11:23)
[2024-02-07 11:37] LABS: Glucose - Point of Care 97 mg/dl (70-99)
--- NOTE | 2024-02-07 11:57 | W.PN.UPDATE ---
Update Note
Progress Note Update
spoke to dtphilippe hopper on phone. No current definitive plans for dc friday, as there is no OP HD unit set at this time.
Will need to find a unit that can provide DFO or frequent HD 6x/week. I would not restrict options to SNF with HD on site.
She can d/w CM friday and Dr. Arrington, who intends to manage pt as an outpatient.
[2024-02-07] MEDS: HYDROPHOR 1 APPLIC TOPICAL (12:17)
[2024-02-07] MEDS: VITAMIN C 500 MG PO ×2 (12:17→20:09)
[2024-02-07] MEDS: NEPHROCAP 1 CAPSULE PO (12:18)
--- NOTE | 2024-02-07 13:39 | W.PN.HOSP.TC ---
Addendum entered and electronically signed by Noah Mo MD 02/07/24 13:55:
Moderate protein calorie malnutrition
Original Note:
Today's Communication/Plan
-
placement to SNF, preferably with HD to treat aluminum toxicity
Assessment / Plan
Assessment / Plan
Assessment:
Microcytic anemia
- can be seen in aluminium toxicity (iron resistant)
- no clear evidence of blood loss
- s/p 2 units PRBCs; Hb 8.4
- monitor for additional transfusion needs
Hx of colon cancer status post colon resection
Chronic diarrhea possibly due to short gut/ malabsorption
- continue Lomotil
- octreotide held by pharmacy
ESRD on HD M//
- Nephrology following
- prn Midodrine
symptomatic Aluminum toxicity neuropathy
- unclear etiology; per OP Main [employer] Station Engineer (Dr. Fields), not related to HD center water supply. patient not on aluminum based binders
- Aluminum level pending
- multiple discussions with Nephrology, Dr. Fields, and [facility]
- [facility] recommends treatment with Deferoxamine + daily HD; they declined transfer
- currently plan is to pursue new SNF with HD capability (referral sent to [facility] re[facility] with HD - this unit is staffed by Dr. Roe group)
- CM following to placement
Stage 2 sacral pressure injury - POA
- wound care service following
Hypotension in the setting of dialysis, chronic diarrhea
- follow cultures
- continue midodrine
Upper/lower extremity muscle weakness possibly due to aluminum toxicity, also hypokalemia
- replete K+ directed by Nephrology
- CT head no acute abnormality
Type 2 diabetes
- continue Lantus 12 units
- SSI
- A1c: 6.3%
Anxiety
- continue lorazepam
DVT ppx: SCDs
Code: Full
Anticipated Discharge: > 48 hours
Subjective/Interval History
-
Date of Service: February 07, 2024
Hb 8.4
no complaints
Objective Data
-
Labs:
Laboratory Results
02/07/24
08:32
Hgb 8.4 L
Hct 27.3 L
Sodium 133 L
Potassium 3.3 L
Chloride 104
Carbon Dioxide 25
Vital Signs:
Vital Signs
Temp Pulse Resp BP Pulse Ox
98.6 F 66 16 93/47 98
02/07/24 11:31 02/07/24 10:00 02/07/24 10:00 02/07/24 10:00 02/07/24 10:00
I&O
02/06/24 02/07/24 02/08/24
06:59 06:59 06:59
Intake Total 960 / 960 490 / 490
Output Total 0 / 0
Balance 960 / 960 490 / 490
Physical Exam
-
General: No Apparent Distress
HEENT: Normocephalic and Atraumatic
Respiratory: Negative Wheezes or Rales
Cardiac: Regular Rhythm and S1/S2
GI: Soft
Genito-urinary: No Costovertebral Tender
Neuro: AO x 3
Psych: Calm
Data Reviewed
-
Total Time Spent with Patient (in minutes): 42
Labs: Labs Reviewed by me
--- NOTE | 2024-02-07 16:36 | PTCARENOTE ---
Pt downgraded to med/surg to transfer to 3rd floor. Report given to MARGOT Singh. This RN left message for daughter, Hazel, re: changing room.
[2024-02-07] MEDS: NOVOLOG FLEXPEN-LOW RESISTANCE 2 UNITS SC (17:20)
[2024-02-07] MEDS: SANTYL OINTMENT 1 APPLIC TOPICAL (17:21)
[2024-02-07 17:27] LABS: Glucose - Point of Care 226 mg/dl (70-99)
[2024-02-07 21:21] LABS: Glucose - Point of Care 145 mg/dl (70-99)
[2024-02-07] MEDS: LANTUS 0.119999999999999996 UNITS SC (21:25)
[2024-02-07] MEDS: ATIVAN 0.5 MG PO (21:25)
[2024-02-08] MEDS: LOMOTIL 2 TABLET PO ×6 (04:10→23:53)
[2024-02-08 06:00] VITALS: BMI 27.2
[2024-02-08 07:37] VITALS: BP 103/41
[2024-02-08 08:58] LABS: Glucose - Point of Care 204 mg/dl (70-99)
[2024-02-08] MEDS: NEPHROCAP 1 CAPSULE PO (08:59)
[2024-02-08] MEDS: HYDROPHOR 1 APPLIC TOPICAL (08:59)
[2024-02-08] MEDS: VITAMIN C 500 MG PO ×2 (09:05→20:04)
[2024-02-08] MEDS: NOVOLOG FLEXPEN-LOW RESISTANCE 2 UNITS SC (09:23)
--- NOTE | 2024-02-08 11:39 | W.PN.NEPH.PH ---
Today's Communication / Plan
-
HD tomorrow
Assessment/Plan
-
Impression:
Weakness
Hypokalemia
Dialysis dependent acute kidney injury following chemotherapy for colon cancer (since 10/02)
Left IJ hemodialysis cath
Right anterior chest wall Mediport
Chronic diarrhea
Suspected aluminum toxicity
History of colon cancer with colostomy and reversal in August 2023
Diabetes
Ongoing hypotension on midodrine support
Anemia
Sacral wound
Upper/lower extremity muscle weakness possibly due to aluminum toxicity
Anxiety
Plan:
-Will arrange for dialysis tomorrow,orders provided, high flux membrane
-Maintain midodrine with HD for chronic hypotension
-Pending aluminum level drawn 02/03...
-MAGDIEL for anemia
-
-
Date of Service: February 08, 2024
CC / HPI / ROS
-
Chief Complaint:
ESRD
History of Present Illness:
BP low but stable
tolerated HD yesterday
sugars controlled with insulin
anemia stable
Review of Systems:
no CP/SOB
Labs
-
Labs:
WBC 6.9 10^3/uL (4.8-10.8) 02/05/24 04:22
RBC 2.83 10^6/uL (4.20-5.40) L 02/05/24 04:22
Hgb 8.4 g/dL (12.0-16.0) L 02/07/24 08:32
Hct 27.3 % (37.0-47.0) L 02/07/24 08:32
Plt Count 155 10^3/uL (130-400) 02/05/24 04:22
Sodium 133 mmol/L (135-145) L 02/07/24 08:32
Potassium 3.3 mmol/L (3.5-5.1) L 02/07/24 08:32
Chloride 104 mmol/L (98-107) 02/07/24 08:32
Carbon Dioxide 25 mmol/L (22-30) 02/07/24 08:32
BUN 34 mg/dl (7-17) H 02/06/24 08:15
Creatinine 3.6 mg/dL (0.6-1.0) H 02/06/24 08:15
eGFR 12.79 02/06/24 08:15
Glucose 89 mg/dl (70-99) 02/06/24 08:15
Calcium 7.6 mg/dl (8.4-10.2) L 02/06/24 08:15
Albumin 2.1 g/dl (3.5-5.0) L 02/05/24 04:22
Physical Exam
-
Vital Signs:
Vital Signs
Temp Pulse Resp BP Pulse Ox
99.1 F 71 16 103/41 98
02/08/24 07:37 02/08/24 07:37 02/08/24 07:37 02/08/24 07:37 02/08/24 07:37
Cardiovascular:: Regular rate and rhythm
Respiratory:: Bilateral: Coarse
Lung Excursion:: Normal
Abdomen:: Nontender and Soft
Bowel Sounds:: Normal
Extremity Edema:: None: Bilateral:
--- NOTE | 2024-02-08 11:43 | W.PN.HOSP.TC ---
Today's Communication/Plan
-
await SNF placement
HD tomorrow
Assessment / Plan
Assessment / Plan
Assessment:
Microcytic anemia
- can be seen in aluminium toxicity (iron resistant)
- no clear evidence of blood loss
- s/p 2 units PRBCs; Hb 8.4 most recently
- monitor for additional transfusion needs
Hx of colon cancer status post colon resection
Chronic diarrhea possibly due to short gut/ malabsorption
- continue Lomotil
- octreotide held by pharmacy
ESRD on HD //
- Nephrology following
- prn Midodrine
symptomatic Aluminum toxicity neuropathy
- unclear etiology; per OP [employer] (Dr. Fields; [phone]), not related to HD center water supply. patient not on aluminum based binders
- Aluminum level pending - expected Friday per lab
- multiple discussions with Nephrology, Dr. Fields, and [facility]
- [facility] recommends treatment with Deferoxamine + daily HD; they declined transfer as they felt this can be managed at any hospital
- currently plan is to pursue a new SNF (She does not want to return to [facility]) with HD capability (referral sent to [facility] with HD - this unit is staffed by Dr. Roe group)
- CM following to placement
Stage 2 sacral pressure injury - POA
- wound care service following
Hypotension in the setting of dialysis, chronic diarrhea
- follow cultures
- continue midodrine
Upper/lower extremity muscle weakness possibly due to aluminum toxicity, also hypokalemia
- replete K+ directed by Nephrology
- CT head no acute abnormality
Type 2 diabetes
- continue Lantus 12 units
- SSI
- A1c: 6.3%
Anxiety
- continue lorazepam
DVT ppx: SCDs
Code: Full
Anticipated Discharge: > 48 hours
Subjective/Interval History
-
Date of Service: February 08, 2024
denies any new complaints
Objective Data
-
Vital Signs:
Vital Signs
Temp Pulse Resp BP Pulse Ox
99.1 F 71 16 103/41 98
02/08/24 07:37 02/08/24 07:37 02/08/24 07:37 02/08/24 07:37 02/08/24 07:37
I&O
02/07/24 02/08/24 02/09/24
06:59 06:59 06:59
Intake Total 490 / 490 240 / 240
Output Total 0 / 0
Balance 490 / 490 240 / 240
Physical Exam
-
General: No Apparent Distress
HEENT: Normocephalic and Atraumatic
Respiratory: Negative Wheezes or Rales
Cardiac: Regular Rhythm and S1/S2
GI: Soft and Nontender
Musculoskeletal: No Edema
Neuro: AO x 3
Hematologic / Lymphatic: No Lymphadenopathy
Psych: Calm
Data Reviewed
-
Total Time Spent with Patient (in minutes): 45
Labs: Labs Reviewed by me
[2024-02-08 11:57] LABS: Glucose - Point of Care 89 mg/dl (70-99)
[2024-02-08] MEDS: NOVOLOG FLEXPEN-LOW RESISTANCE SC ×2 (13:03→17:53)
[2024-02-08 15:26] VITALS: BP 102/49
[2024-02-08 15:49] VITALS: BP 108/45; PULSE 73; O2SAT 100
[2024-02-08 15:50] VITALS: BP 108/45; O2SAT 100
[2024-02-08 16:57] LABS: Glucose - Point of Care 112 mg/dl (70-99)
[2024-02-08] MEDS: SANTYL OINTMENT 1 APPLIC TOPICAL (17:52)
[2024-02-08 21:25] LABS: Glucose - Point of Care 183 mg/dl (70-99)
[2024-02-08] MEDS: ATIVAN 0.5 MG PO (21:35)
[2024-02-08] MEDS: LANTUS 0.119999999999999996 UNITS SC (21:35)
[2024-02-08 23:25] VITALS: BP 103/46
[2024-02-09] MEDS: LOMOTIL 2 TABLET PO ×5 (04:13→21:46)
[2024-02-09 06:00] VITALS: BMI 28.2
[2024-02-09 07:00] VITALS: BP 101/50
[2024-02-09 07:50] LABS: Glucose - Point of Care 66 mg/dl (70-99)
[2024-02-09 08:13] LABS: Hematocrit 25.5 % (37.0-47.0); Hemoglobin 7.9 g/dL (12.0-16.0); Mean Corpuscular Volume 83.9 fL (81.0-99.0); Mean Platelet Volume 8.7 fL (7.4-10.4); Platelet Count 155 10^3/uL (130-400); Red Blood Cell Count 3.04 10^6/uL (4.20-5.40); Red Cell Dist. Width 17.5 % (11.5-14.5); White Blood Cell Count 7.5 10^3/uL (4.8-10.8)
[2024-02-09 08:19] LABS: Glucose - Point of Care 44 mg/dl (70-99)
[2024-02-09 08:33] LABS: Blood Urea Nitrogen 33 mg/dl (7-17); Calcium 7.4 mg/dl (8.4-10.2); Carbon Dioxide 24 mmol/L (22-30); Chloride 101 mmol/L (98-107); Estimated Creatinine Clearance 13 ml/min; Glucose 47 mg/dl (70-99); Potassium 3.6 mmol/L (3.5-5.1); Sodium 130 mmol/L (135-145); eGFR 11.99
[2024-02-09] MEDS: HYDROPHOR 1 APPLIC TOPICAL (08:34)
[2024-02-09] MEDS: NOVOLOG FLEXPEN-LOW RESISTANCE SC ×3 (08:34→17:15)
[2024-02-09] MEDS: NEPHROCAP 1 CAPSULE PO (08:38)
[2024-02-09 08:54] LABS: Glucose - Point of Care 41 mg/dl (70-99)
[2024-02-09 08:57] LABS: Glucose - Point of Care 60 mg/dl (70-99)
[2024-02-09 09:27] LABS: Glucose - Point of Care 62 mg/dl (70-99)
--- NOTE | 2024-02-09 09:58 | W.PN.HOSP.TC ---
Today's Communication/Plan
-
await further input from CM
Assessment / Plan
Assessment / Plan
Assessment:
Microcytic anemia
- can be seen in aluminium toxicity (iron resistant)
- no clear evidence of blood loss
- s/p 2 units PRBCs; Hb 8.4-->7.9
- monitor for additional transfusion needs
Hx of colon cancer status post colon resection
Jul 2023, nodes neg, tumor through colon wall, chemo through [facility]
Chronic diarrhea possibly due to short gut/ malabsorption
- continue Lomotil
- octreotide held by pharmacy
ESRD on HD //
- Nephrology following
- prn Midodrine
symptomatic Aluminum toxicity neuropathy
- unclear etiology; per OP [employer] (Dr. Fields; [phone]), not related to HD center water supply. patient not on aluminum based binders
- Aluminum level pending - expected Friday per lab
- multiple discussions with Nephrology, Dr. Fields, and [facility]
- [facility] recommends treatment with Deferoxamine + daily HD; they declined transfer as they felt this can be managed at any hospital
- currently plan is to pursue a new SNF (She does not want to return to [facility]) with HD capability (referral sent to [facility] inpatient [facility] with HD - this unit is staffed by Dr. Roe group)
- CM following to placement
PT/OT input appreciated
Stage 2 sacral pressure injury - POA
- wound care service following
Hypotension in the setting of dialysis, chronic diarrhea
- follow cultures
- continue midodrine
Upper/lower extremity muscle weakness possibly due to aluminum toxicity, also hypokalemia
- replete K+ directed by Nephrology
- CT head no acute abnormality
Type 2 diabetes
- continue Lantus 12 units
- SSI
- A1c: 6.3%
Anxiety
- continue lorazepam
DVT ppx: SCDs
Code: Full
Anticipated Discharge: 24 - 48 hours
Subjective/Interval History
-
Date of Service: February 09, 2024
Awake, alert, conversant
Objective Data
-
Labs:
Laboratory Results
02/09/24
07:42
WBC 7.5
Hgb 7.9 L
Hct 25.5 L
Plt Count 155
Sodium 130 L
Potassium 3.6
Chloride 101
Carbon Dioxide 24
BUN 33 H
Creatinine 3.8 H
Glucose 47 L*
Calcium 7.4 L
Vital Signs:
Vital Signs
Temp Pulse Resp BP Pulse Ox
97.8 F 69 17 101/50 98
02/09/24 07:00 02/09/24 07:00 02/09/24 07:00 02/09/24 07:00 02/09/24 07:00
I&O
02/08/24 02/09/24 02/10/24
06:59 06:59 06:59
Intake Total 240 / 240 1440 / 1440
Balance 240 / 240 1440 / 1440
Review of Systems
-
History Source: Patient and Coordinated Provider
Constitutional: Denies Fever
EENT: Reports No Symptoms Reported
Respiratory: Reports No Symptoms
Cardiac: Reports No Symptoms
Abdomen/GI: Reports No Symptoms
Physical Exam
-
General: Well Developed, Well Nourished and No Apparent Distress
HEENT: Normocephalic, Atraumatic and Moist Mucous Membranes
Respiratory: Clear to Auscultation; Negative Wheezes, Rales or Rhonchi
Cardiac: Regular Rhythm and S1/S2
GI: Nontender and Nondistended
Musculoskeletal: No Clubbing, No Cyanosis and No Edema
Skin: Warm and Dry
[2024-02-09 10:06] LABS: Glucose - Point of Care 88 mg/dl (70-99)
--- NOTE | 2024-02-09 10:14 | CM ---
Addendum entered by Elizabeth Leon 02/09/24 14:28:
Spoke with pt regarding discharge plan after rehab - pt reports she plans to return home and will have assist from family, if need be she will obtain caretakers
Addendum entered by Elizabeth Leon 02/09/24 13:48:
CM called Magnus at [facility] to follow up referral
Per Magnus - have concerns about dispo as pt lives alone
to be accepted pt needs a out-pt HD chair at the HD center at [facility] [phone]
Called and LM requesting call back with call back # - to make referral for pt for HD chair
Once HD chair obtained will need PASSR, COVID testing and any additional needs requested by HD facility
CM will discuss dispo with pt and call Ticora at [facility] once HD chair referral accepted
Original Note:
CM following for discharge planning
[phone] and spoke with Magnus following up on referral sent on 02/05
Ticora reports she will review case and return call to CM
CM will cont to follow
[2024-02-09 11:45] LABS: Glucose - Point of Care 109 mg/dl (70-99)
[2024-02-09] MEDS: ProAmatine 5 MG PO (12:27)
[2024-02-09] MEDS: HEPARIN 500 UNITS IV ×2 (13:17→13:18)
[2024-02-09] MEDS: RETACRIT 10000 UNITS IV (13:18)
--- NOTE | 2024-02-09 14:54 | W.PN.NEPH.HD ---
Assessment
-
pt seen during HD
vitals stable on midodrine
high flux dialyzer today with 200 filter and bld flow 400
if pending Aluminium level remains high likely start chelator with HD
keep HD MWF still
he is only on HD for 2months , monitor UOP
CVC functions well
Progress Note - Hemodialysis
-
Date of Service: February 09, 2024
Duration: 30 minutes and 3 hours
Potassium Bath: 3
Calcium Bath: 2.5
Opti-Dialyzer: 200
Ultrafiltration: Other (0.5kg)
Blood Flow: 400
Dialysate Flow: 600
Heparin: yesx2
EPO: [id number]
[2024-02-09 15:58] VITALS: BP 114/52
[2024-02-09 16:43] LABS: Glucose - Point of Care 118 mg/dl (70-99)
[2024-02-09] MEDS: VITAMIN C PO (17:13)
[2024-02-09] MEDS: SANTYL OINTMENT 1 APPLIC TOPICAL (17:30)
[2024-02-09] MEDS: BENADRYL IV (21:27)
[2024-02-09 21:42] LABS: Glucose - Point of Care 250 mg/dl (70-99)
[2024-02-09] MEDS: ATIVAN 0.5 MG PO (21:46)
[2024-02-09] MEDS: VITAMIN C 500 MG PO (21:46)
[2024-02-09] MEDS: LANTUS 0.119999999999999996 UNITS SC (21:47)
[2024-02-09 22:11] VITALS: BP 105/35
[2024-02-10] MEDS: LOMOTIL 2 TABLET PO ×6 (01:08→21:47)
[2024-02-10 05:10] LABS: % Basophils 0.4 % (0-2); % Eosinophils 0.2 % (0-6); % Immature Granulocytes 0.4 % (0-0.5); % Lymphocytes 37.3 % (20.5-51.1); % Monocytes 10.2 % (1.7-9.3); % Neutrophils 51.5 % (42.2-75.2); Absolute Monocytes 0.6 10^3/uL (0.1-0.6); Absolute Neutrophils 2.8 10^3/uL (1.4-6.5); Hematocrit 25.1 % (37.0-47.0); Hemoglobin 7.6 g/dL (12.0-16.0); Mean Corp Hgb Conc. 30.3 g/dL (33.0-37.0); Mean Corpuscular Hgb 25.5 pg (27.0-31.0); Mean Corpuscular Volume 84.2 fL (81.0-99.0); Mean Platelet Volume 8.9 fL (7.4-10.4); Nucleated Red Blood Cells % 0 %; Platelet Count 147 10^3/uL (130-400); Red Blood Cell Count 2.98 10^6/uL (4.20-5.40); Red Cell Dist. Width 17.2 % (11.5-14.5); White Blood Cell Count 5.4 10^3/uL (4.8-10.8)
[2024-02-10 05:31] LABS: Blood Urea Nitrogen 19 mg/dl (7-17); Estimated Creatinine Clearance 22 ml/min; Glucose 143 mg/dl (70-99); Sodium 129 mmol/L (135-145); eGFR 23.09
[2024-02-10 05:32] LABS: Calcium 7.2 mg/dl (8.4-10.2); Carbon Dioxide 25 mmol/L (22-30); Chloride 101 mmol/L (98-107); Potassium 3.6 mmol/L (3.5-5.1)
[2024-02-10 06:00] VITALS: BMI 27.4
[2024-02-10 07:00] VITALS: BP 94/42
[2024-02-10 07:28] LABS: Glucose - Point of Care 139 mg/dl (70-99)
[2024-02-10] MEDS: NOVOLOG FLEXPEN-LOW RESISTANCE SC ×2 (09:01→11:48)
[2024-02-10] MEDS: NEPHROCAP 1 CAPSULE PO (09:02)
[2024-02-10] MEDS: VITAMIN C 500 MG PO ×2 (09:02→21:47)
[2024-02-10] MEDS: HYDROPHOR TOPICAL (09:02)
[2024-02-10 11:37] LABS: Glucose - Point of Care 115 mg/dl (70-99)
--- NOTE | 2024-02-10 12:21 | W.PN.HOSP.TC ---
Today's Communication/Plan
-
await further input from CM
Assessment / Plan
Assessment / Plan
Assessment:
Microcytic anemia
- can be seen in aluminium toxicity (iron resistant)
- no clear evidence of blood loss
- s/p 2 units PRBCs; Hb 8.4-->7.9-->7.6
- monitor for additional transfusion needs
Hx of colon cancer status post colon resection
Jul 2023, nodes neg, tumor through colon wall, chemo through [facility]
Chronic diarrhea possibly due to short gut/ malabsorption
- continue Lomotil
- octreotide held by pharmacy
ESRD on HD M//
- Nephrology following
- prn Midodrine
symptomatic Aluminum toxicity neuropathy
- unclear etiology; per OP Biologics Specialist (Dr. Fields; [phone]), not related to HD center water supply. patient not on aluminum based binders
- Aluminum level pending - expected Friday per lab
- multiple discussions with Nephrology, Dr. Fields, and [facility]
- [facility] recommends treatment with Deferoxamine + daily HD; they declined transfer as they felt this can be managed at any hospital
- currently plan is to pursue a new SNF (She does not want to return to [facility]) with HD capability (referral sent to [facility] inpatient [facility] with HD - this unit is staffed by Dr. Roe group)
- CM following to placement
PT/OT input appreciated
Stage 2 sacral pressure injury - POA
- wound care service following
Hypotension in the setting of dialysis, chronic diarrhea
- negative cultures
- continue midodrine
Upper/lower extremity muscle weakness most likely due to aluminum toxicity, also hypokalemia
- replete K+ directed by Nephrology
- CT head no acute abnormality
would consider Acute Care Rehab once completes course of dialysis
Type 2 diabetes
- continue Lantus 12 units
- SSI
- A1c: 6.3%
glu generally in 88-139 range
Anxiety
- continue lorazepam
DVT ppx: SCDs
Code: Full
Anticipated Discharge: 24 - 48 hours
Subjective/Interval History
-
Date of Service: February 10, 2024
anxiously awaiting completion of arrangements for daily dialysis
Objective Data
-
Labs:
Laboratory Results
02/10/24
04:31
WBC 5.4
Hgb 7.6 L
Hct 25.1 L
Plt Count 147
Sodium 129 L
Potassium 3.6
Chloride 101
Carbon Dioxide 25
BUN 19 H
Creatinine 2.2 H
Glucose 143 H
Calcium 7.2 L
Vital Signs:
Vital Signs
Temp Pulse Resp BP Pulse Ox
98.8 F 70 17 94/42 97
02/10/24 07:00 02/10/24 07:00 02/10/24 07:00 02/10/24 07:00 02/10/24 07:00
I&O
02/09/24 02/10/24 02/11/24
06:59 06:59 06:59
Intake Total 1440 / 1440 500 / 500
Output Total 2 / 2
Balance 1440 / 1440 498 / 498
Review of Systems
-
History Source: Patient and Coordinated Provider
Constitutional: Denies Fever
EENT: Reports No Symptoms Reported
Respiratory: Reports No Symptoms
Cardiac: Reports No Symptoms
Abdomen/GI: Reports No Symptoms
Physical Exam
-
General: Well Developed, Well Nourished and No Apparent Distress
HEENT: Normocephalic, Atraumatic and Moist Mucous Membranes
Respiratory: Clear to Auscultation; Negative Wheezes, Rales or Rhonchi
Cardiac: Regular Rhythm and S1/S2
GI: Nontender and Nondistended
Musculoskeletal: No Clubbing, No Cyanosis and No Edema
Skin: Warm and Dry
Neuro: Negative No Motor Deficits (significant muscular weakness)
[2024-02-10 15:00] VITALS: BP 102/50
--- NOTE | 2024-02-10 15:17 | W.PN.NEPH.PH ---
Today's Communication / Plan
-
HD tomorrow
Assessment/Plan
-
Impression:
Weakness
Hypokalemia
Dialysis dependent acute kidney injury following chemotherapy for colon cancer (since 10/02)
Left IJ hemodialysis cath
Right anterior chest wall Mediport
Chronic diarrhea
Suspected aluminum toxicity
History of colon cancer with colostomy and reversal in August 2023
Diabetes
Ongoing hypotension on midodrine support
Anemia
Sacral wound
Upper/lower extremity muscle weakness possibly due to aluminum toxicity
Anxiety
Plan:
-Will arrange for dialysis tomorrow,orders provided, high flux membrane
-Maintain midodrine with HD for chronic hypotension
-Pending aluminum level drawn 02/03...
-MAGDIEL for anemia, follow h/h
with high flux HD pt symptoms are improving and feels more stronger today
monitor jesusita-check I jesusita, vit D, PTH in am
-
-
Date of Service: February 10, 2024
CC / HPI / ROS
-
Chief Complaint:
ESRD
History of Present Illness:
BP low but stable
tolerated HD yesterday
anemia stable hb 7.6, jesusita 7.2 uncorrected
Review of Systems:
no CP/SOB
able to urinate this week
much better today and slept really well last night
Labs
-
Labs:
WBC 5.4 10^3/uL (4.8-10.8) 02/10/24 04:
RBC 2.98 10^6/uL (4.20-5.40) L 02/10/24 04:31
Hgb 7.6 g/dL (12.0-16.0) L 02/10/24 04:
Hct 25.1 % (37.0-47.0) L 02/10/24 04:31
Plt Count 147 10^3/uL (130-400) 02/10/24 04:31
Sodium 129 mmol/L (135-145) L 02/10/24 04:31
Potassium 3.6 mmol/L (3.5-5.1) 02/10/24 04:31
Chloride 101 mmol/L (98-107) 02/10/24 04:31
Carbon Dioxide 25 mmol/L (22-30) 02/10/24 04:31
BUN 19 mg/dl (7-17) H 02/10/24 04:31
Creatinine 2.2 mg/dL (0.6-1.0) H 02/10/24 04:31
eGFR 23.09 02/10/24 04:31
Glucose 143 mg/dl (70-99) H 02/10/24 04:31
Calcium 7.2 mg/dl (8.4-10.2) L 02/10/24 04:31
Albumin 2.1 g/dl (3.5-5.0) L 02/05/24 04:22
Physical Exam
-
Vital Signs:
Vital Signs
Temp Pulse Resp BP Pulse Ox
98.8 F 70 17 94/42 97
02/10/24 07:00 02/10/24 07:00 02/10/24 07:00 02/10/24 07:00 02/10/24 07:00
Cardiovascular:: Regular rate and rhythm
Respiratory:: Bilateral: CTA
Lung Excursion:: Normal
Abdomen:: Nontender and Soft
Extremity Edema:: None: Bilateral:
Hopson Catheter: No
[2024-02-10] MEDS: SANTYL OINTMENT 1 APPLIC TOPICAL (15:28)
[2024-02-10 16:17] LABS: Glucose - Point of Care 183 mg/dl (70-99)
[2024-02-10] MEDS: NOVOLOG FLEXPEN-LOW RESISTANCE 1 UNITS SC (16:19)
[2024-02-10 21:45] LABS: Glucose - Point of Care 211 mg/dl (70-99)
[2024-02-10] MEDS: LANTUS 0.119999999999999996 UNITS SC (21:47)
[2024-02-10] MEDS: ATIVAN 0.5 MG PO (21:47)
[2024-02-10] MEDS: TYLENOL 650 MG PO (22:05)
[2024-02-10] MEDS: ProAmatine 5 MG PO (22:05)
[2024-02-10 22:08] VITALS: BP 92/40
[2024-02-10 23:12] VITALS: BP 96/44
[2024-02-11] VITALS (7 sets, daily range): BP systolic 96–119; BP diastolic 39–70; BMI 28.7
[2024-02-11] MEDS: LOMOTIL 2 TABLET PO ×5 (00:50→23:10)
[2024-02-11 05:18] LABS: % Basophils 0.3 % (0-2); % Eosinophils 0.7 % (0-6); % Immature Granulocytes 0.3 % (0-0.5); % Lymphocytes 45.1 % (20.5-51.1); % Monocytes 9.3 % (1.7-9.3); % Neutrophils 44.3 % (42.2-75.2); Absolute Lymphocytes 2.6 10^3/uL (1.2-3.4); Absolute Monocytes 0.5 10^3/uL (0.1-0.6); Absolute Neutrophils 2.6 10^3/uL (1.4-6.5); Hematocrit 23.1 % (37.0-47.0); Hemoglobin 7.1 g/dL (12.0-16.0); Mean Corp Hgb Conc. 30.7 g/dL (33.0-37.0); Mean Corpuscular Hgb 25.2 pg (27.0-31.0); Mean Corpuscular Volume 81.9 fL (81.0-99.0); Mean Platelet Volume 9.2 fL (7.4-10.4); Nucleated Red Blood Cells % 0 %; Platelet Count 169 10^3/uL (130-400); Red Blood Cell Count 2.82 10^6/uL (4.20-5.40); Red Cell Dist. Width 17.4 % (11.5-14.5); White Blood Cell Count 5.8 10^3/uL (4.8-10.8)
[2024-02-11 05:42] LABS: Blood Urea Nitrogen 30 mg/dl (7-17); Calcium 7.5 mg/dl (8.4-10.2); Carbon Dioxide 26 mmol/L (22-30); Chloride 96 mmol/L (98-107); Estimated Creatinine Clearance 14 ml/min; Glucose 65 mg/dl (70-99); Potassium 3.3 mmol/L (3.5-5.1); Sodium 130 mmol/L (135-145)
[2024-02-11 07:28] LABS: Glucose - Point of Care 76 mg/dl (70-99)
[2024-02-11] MEDS: NOVOLOG FLEXPEN-LOW RESISTANCE SC ×3 (08:03→18:06)
[2024-02-11] MEDS: NEPHROCAP 1 CAPSULE PO (08:03)
[2024-02-11] MEDS: ProAmatine 5 MG PO (08:03)
[2024-02-11] MEDS: VITAMIN C 500 MG PO ×2 (08:03→19:52)
--- NOTE | 2024-02-11 11:35 | CM ---
Addendum entered by Elizabeth Leon 02/11/24 14:50:
Updates TB testing or recent chest xray needed for [facility]
Dr Doshi notified
Original Note:
Case management following for d/c planning
Called [phone] - out pt dialysis at [facility] to discuss obtaining HD chair for pt when transferred to [facility]
Spoke with Brooke. Given phone number for admissions at [facility]
Called at spoke with Ashly
Given general pt info. She will fax worksheet and begin process.
CM will follow up and submit clinicals to [facility]
[2024-02-11 11:41] LABS: Glucose - Point of Care 96 mg/dl (70-99)
[2024-02-11] MEDS: HEPARIN 500 UNITS IV ×2 (12:50→14:30)
[2024-02-11] MEDS: RETACRIT 10000 UNITS IV (13:19)
--- NOTE | 2024-02-11 14:05 | W.PN.HOSP.TC ---
Today's Communication/Plan
-
CXR
follow labs
Assessment / Plan
Assessment / Plan
Assessment:
Microcytic anemia
- can be seen in aluminium toxicity (iron resistant)
- no clear evidence of blood loss
- s/p 2 units PRBCs; Hb 8.4-->7.9-->7.6-->7.1
- monitor for additional transfusion needs
discussed with Dr. Aviles, he recommends unit transfused, ordered T&S and 1 unit. Pt made aware, had many questions
Hx of colon cancer status post colon resection
Jul 2023, nodes neg, tumor through colon wall, chemo through [facility]
Chronic diarrhea possibly due to short gut/ malabsorption
- continue Lomotil
- octreotide held by pharmacy
ESRD on HD M//
- Nephrology following
- prn Midodrine
symptomatic Aluminum toxicity neuropathy
- unclear etiology; per OP Geologist (Dr. Fields; [phone]), not related to HD center water supply. patient not on aluminum based binders
- Aluminum level pending
- multiple discussions with Nephrology, Dr. Fields, and [facility]
- [facility] recommends treatment with Deferoxamine + daily HD; they declined transfer as they felt this can be managed at any hospital
- currently plan is to pursue a new SNF (She does not want to return to [facility]) with HD capability (referral sent to [facility] with HD - this unit is staffed by Dr. Roe group)
- CM following to placement, text from [facility], potential to [facility], but they request TB skin check or CXR, will order CXR
PT/OT input appreciated
Stage 2 sacral pressure injury - POA
- wound care service following
Hypotension in the setting of dialysis, chronic diarrhea
- negative cultures
- continue midodrine
Upper/lower extremity muscle weakness most likely due to aluminum toxicity, also hypokalemia K3.3
- replete K+ directed by Nephrology
- CT head no acute abnormality
would consider Acute Care Rehab once completes course of dialysis
Type 2 diabetes
- continue Lantus 12 units
- SSI
- A1c: 6.3%
glu generally in 88-139 range
Anxiety
- continue lorazepam
DVT ppx: SCDs
Code: Full
Anticipated Discharge: 24 - 48 hours
Subjective/Interval History
-
Date of Service: February 11, 2024
Pt feels better today
Objective Data
-
Labs:
Laboratory Results
02/11/24
04:55
WBC 5.8
Hgb 7.1 L
Hct 23.1 L
Plt Count 169
Sodium 130 L
Potassium 3.3 L
Chloride 96 L
Carbon Dioxide 26
BUN 30 H
Creatinine 3.4 H
Glucose 65 L
Calcium 7.5 L
Vital Signs:
Vital Signs
Temp Pulse Resp BP Pulse Ox
98.3 F 66 17 104/65 98
02/11/24 07:00 02/11/24 07:00 02/11/24 07:00 02/11/24 08:03 02/11/24 07:00
I&O
02/10/24 02/11/24 02/12/24
06:59 06:59 06:59
Intake Total 500 / 500 960 / 960
Output Total 2 / 2
Balance 498 / 498 960 / 960
Review of Systems
-
History Source: Patient and Coordinated Provider
Constitutional: Denies Fever
EENT: Reports No Symptoms Reported
Respiratory: Reports No Symptoms
Cardiac: Reports No Symptoms
Abdomen/GI: Reports No Symptoms
Neuro: Reports Weakness (not as weak today)
Physical Exam
-
General: Well Developed, Well Nourished and No Apparent Distress
HEENT: Normocephalic, Atraumatic and Moist Mucous Membranes
Respiratory: Clear to Auscultation; Negative Wheezes, Rales or Rhonchi
Cardiac: Regular Rhythm and S1/S2
GI: Nontender and Nondistended
Musculoskeletal: No Clubbing, No Cyanosis and No Edema
Skin: Warm and Dry
Neuro: Negative No Motor Deficits (significant muscular weakness)
[2024-02-11] MEDS: FLEXBUMIN 25% FOR HEMODIALYSIS 12.5 GRAMS IV (15:04)
--- NOTE | 2024-02-11 15:29 | W.PN.NEPH.HD ---
Assessment
-
Patient seen on dialysis
SBP 108 low UF of only 0.5 kg
1 unit of blood to be given on dialysis his hemoglobin down to 7.1
Aluminum level remains pending
Patient physically improving\\
Maintain OPTi 200 dialysis high flux membrane in setting of aluminum toxicity for increased clearance
Patient cried
Progress Note - Hemodialysis
-
Date of Service: February 11, 2024
Duration: 30 minutes and 3 hours
Potassium Bath: 3
Calcium Bath: 2.5
Opti-Dialyzer: 160
Ultrafiltration: Other (0.5 kg)
Blood Flow: 400
Dialysate Flow: 600
Heparin: 500 x 2
EPO: 10,000
[2024-02-11 16:10] LABS: Glucose - Point of Care 72 mg/dl (70-99)
[2024-02-11] MEDS: HEPARIN 4600 UNITS INTRACATH (16:13)
[2024-02-11] MEDS: HYDROPHOR 1 APPLIC TOPICAL (17:45)
[2024-02-11] MEDS: LOMOTIL PO ×2 (17:52→17:53)
[2024-02-11] MEDS: SANTYL OINTMENT 1 APPLIC TOPICAL (18:01)
[2024-02-11] MEDS: ULTRAM 50 MG PO (18:20)
[2024-02-11] MEDS: BENADRYL IV (19:17)
[2024-02-11 21:32] LABS: Glucose - Point of Care 106 mg/dl (70-99)
[2024-02-11] MEDS: ATIVAN 0.5 MG PO (21:39)
[2024-02-11] MEDS: LANTUS SC (21:39)
[2024-02-12] MEDS: LOMOTIL 2 TABLET PO ×6 (04:55→23:02)
[2024-02-12 05:29] VITALS: BMI 29.2
[2024-02-12 05:41] LABS: Blood Urea Nitrogen 16 mg/dl (7-17); Calcium 7.3 mg/dl (8.4-10.2); Carbon Dioxide 25 mmol/L (22-30); Chloride 101 mmol/L (98-107); Estimated Creatinine Clearance 24 ml/min; Glucose 57 mg/dl (70-99); Potassium 3.1 mmol/L (3.5-5.1); Sodium 131 mmol/L (135-145); eGFR 25.89
[2024-02-12] MEDS: KCL 40 MEQ PO (06:25)
[2024-02-12 06:51] LABS: Glucose - Point of Care 66 mg/dl (70-99)
[2024-02-12 07:17] LABS: Glucose - Point of Care 62 mg/dl (70-99)
[2024-02-12 07:39] LABS: Glucose - Point of Care 84 mg/dl (70-99)
[2024-02-12 07:42] VITALS: BP 95/39
[2024-02-12] MEDS: NOVOLOG FLEXPEN-LOW RESISTANCE SC ×3 (07:53→17:27)
[2024-02-12] MEDS: VITAMIN C 500 MG PO ×2 (07:54→20:11)
[2024-02-12] MEDS: HYDROPHOR 1 APPLIC TOPICAL (07:54)
[2024-02-12] MEDS: NEPHROCAP 1 CAPSULE PO (07:54)
--- NOTE | 2024-02-12 09:27 | CM ---
Addendum entered by Elizabeth Leon 02/12/24 16:31:
Received call from Keyonna at [facility]
Reports pts daughter contacted her mgr and feels the [place] location is too far transportation garza for Mother. Explained situation and why this location was chosen. Reports family would like [place] location
Spoke with pts daughter Hazel. Reports she has not spoken to anyone at [facility] and understands why her mother will be transferred to [place].
Received 2nd call from Keyonna. Aware CM spoke with pts daughter. Reviewed plan of care with Keyonna. She reports she will contact her microbiology lab manager and relay information. She will return call.
CM will continue to follow
Original Note:
Clinicals and documents faxed to [facility] [phone]
Hepatitis Serology pending
CM cont to follow for d/c needs
[facility] TCU pend HD chair and auth
[2024-02-12 09:50] LABS: Glucose - Point of Care 94 mg/dl (70-99)
[2024-02-12 11:37] LABS: Glucose - Point of Care 121 mg/dl (70-99)
[2024-02-12 12:16] VITALS: BP 104/49; PULSE 68
[2024-02-12 12:21] VITALS: BP 104/49; PULSE 68
--- NOTE | 2024-02-12 12:25 | W.PN.NEPH.PH ---
Today's Communication / Plan
-
Hd tomorrow
replete K
Assessment/Plan
-
Impression:
Weakness
Hypokalemia
Dialysis dependent acute kidney injury following chemotherapy for colon cancer (since 10/02)
Left IJ hemodialysis cath
Right anterior chest wall Mediport
Chronic diarrhea
Suspected aluminum toxicity
History of colon cancer with colostomy and reversal in August 2023
Diabetes
Ongoing hypotension on midodrine support
Anemia
Sacral wound
Upper/lower extremity muscle weakness possibly due to aluminum toxicity
Anxiety
Plan:
-Will arrange for dialysis tomorrow,orders provided, high flux membrane
-Maintain midodrine with HD for chronic hypotension
-Pending aluminum level drawn 02/03...
-MAGDIEL for anemia, follow h/h
with high flux HD pt symptoms are improving and feels more stronger today
-replete K
-
-
Date of Service: February 12, 2024
CC / HPI / ROS
-
Chief Complaint:
ESRD
History of Present Illness:
BP low but stable
tolerated HD yesterday
anemia stable hb 7.6, jesusita 7.2 uncorrected
Review of Systems:
no CP/SOB
able to urinate
much better today and slept really well last night
Labs
-
Labs:
WBC 5.8 10^3/uL (4.8-10.8) 02/11/24 04:55
RBC 2.82 10^6/uL (4.20-5.40) L 02/11/24 04:55
Hgb 7.1 g/dL (12.0-16.0) L 02/11/24 04:55
Hct 23.1 % (37.0-47.0) L 02/11/24 04:55
Plt Count 169 10^3/uL (130-400) 02/11/24 04:55
Sodium 131 mmol/L (135-145) L 02/12/24 04:49
Potassium 3.1 mmol/L (3.5-5.1) L 02/12/24 04:49
Chloride 101 mmol/L (98-107) 02/12/24 04:49
Carbon Dioxide 25 mmol/L (22-30) 02/12/24 04:49
BUN 16 mg/dl (7-17) 02/12/24 04:49
Creatinine 2.0 mg/dL (0.6-1.0) H 02/12/24 04:49
eGFR 25.89 02/12/24 04:49
Glucose 57 mg/dl (70-99) L 02/12/24 04:49
Calcium 7.3 mg/dl (8.4-10.2) L 02/12/24 04:49
Albumin 2.1 g/dl (3.5-5.0) L 02/05/24 04:22
Physical Exam
-
Vital Signs:
Vital Signs
Temp Pulse Resp BP Pulse Ox
98.3 F 65 17 95/39 99
02/12/24 07:42 02/12/24 07:42 02/12/24 07:42 02/12/24 07:42 02/12/24 07:42
Cardiovascular:: Regular rate and rhythm
Respiratory:: Bilateral: CTA
Lung Excursion:: Normal
Abdomen:: Nontender and Soft
Bowel Sounds:: Normal
Extremity Edema:: +1: Bilateral:
Hopson Catheter: No
[2024-02-12 15:32] VITALS: BP 93/45
[2024-02-12 16:57] LABS: Glucose - Point of Care 105 mg/dl (70-99)
[2024-02-12] MEDS: SANTYL OINTMENT 1 APPLIC TOPICAL (17:35)
--- NOTE | 2024-02-12 17:41 | CM ---
Call received by Keyonna at [facility], she stated she [facility] based on request, Update to with request to return her call in am for additional information . Keyonna stated her office is
in [place] therefore there is an hours time difference.
--- NOTE | 2024-02-12 17:56 | W.PN.HOSP.TC ---
Today's Communication/Plan
-
recheck CBC tomorrow
Assessment / Plan
Assessment / Plan
Assessment:
Microcytic anemia
- can be seen in aluminium toxicity (iron resistant)
- no clear evidence of blood loss
- s/p 2 units PRBCs; Hb 8.4-->7.9-->7.6-->7.1-transfused-->check Hgb 4/5
- monitor for additional transfusion needs
Hx of colon cancer status post colon resection
Jul 2023, nodes neg, tumor through colon wall, chemo through [facility]
Chronic diarrhea possibly due to short gut/ malabsorption
- continue Lomotil
- octreotide held by pharmacy
ESRD on HD M/W/
- Nephrology following
as per Dr. Aviles: 'Dialysis dependent acute kidney injury following chemotherapy for colon cancer (since 10/02)'
- prn Midodrine
symptomatic Aluminum toxicity neuropathy
- unclear etiology; per OP Registered Pharmacy Technician (Dr. Fields; [phone]), not related to HD center water supply. patient not on aluminum based binders
- Aluminum level pending
- multiple discussions with Nephrology, Dr. Fields, and [facility]
- [facility] recommends treatment with Deferoxamine + daily HD; they declined transfer as they felt this can be managed at any hospital
discussed with Dr Aviles, never received Deferoxamine as still awaiting aluminum level
- currently plan is to pursue a new SNF (She does not want to return to [facility]) with HD capability (referral sent to [facility] with HD - this unit is staffed by Dr. Roe group)
- CM following to placement, text from CM, potential to [facility], but they request TB skin check or CXR, will order CXR
PT/OT input appreciated
Stage 2 sacral pressure injury - POA
- wound care service following
Hypotension in the setting of dialysis, chronic diarrhea
- negative cultures
- continue midodrine
Upper/lower extremity muscle weakness most likely due to aluminum toxicity, also hypokalemia K3.3-->3.1
- replete K+ directed by Nephrology
- CT head no acute abnormality
would consider [facility] Rehab once completes course of dialysis
Type 2 diabetes
- continue Lantus 12 units
- SSI
- A1c: 6.3%
glu generally in 88-139 range
Anxiety
- continue lorazepam
DVT ppx: SCDs
Code: Full
Anticipated Discharge: > 48 hours
Subjective/Interval History
-
Date of Service: February 12, 2024
Actually feeling better today, not as weak
Objective Data
-
Vital Signs:
Vital Signs
Temp Pulse Resp BP Pulse Ox
98.5 F 68 16 93/45 99
02/12/24 15:32 02/12/24 15:32 02/12/24 15:32 02/12/24 15:32 02/12/24 15:32
I&O
02/11/24 02/12/24 02/13/24
06:59 06:59 06:59
Intake Total 960 / 960 1090 / 1090 990 / 990
Balance 960 / 960 1090 / 1090 990 / 990
Review of Systems
-
History Source: Patient and Coordinated Provider
Constitutional: Denies Fever
EENT: Reports No Symptoms Reported
Respiratory: Reports No Symptoms
Cardiac: Reports No Symptoms
Abdomen/GI: Reports No Symptoms
Neuro: Reports Weakness (not as weak today)
Physical Exam
-
General: Well Developed, Well Nourished and No Apparent Distress
HEENT: Normocephalic, Atraumatic and Moist Mucous Membranes
Respiratory: Clear to Auscultation; Negative Wheezes, Rales or Rhonchi
Cardiac: Regular Rhythm and S1/S2
GI: Nontender and Nondistended
Musculoskeletal: No Clubbing, No Cyanosis and No Edema
Skin: Warm and Dry
Neuro: Negative No Motor Deficits (significant muscular weakness)
[2024-02-12] MEDS: ATIVAN 0.5 MG PO (21:19)
[2024-02-12] MEDS: LANTUS 0.119999999999999996 UNITS SC (21:20)
[2024-02-12 21:21] LABS: Glucose - Point of Care 156 mg/dl (70-99)
[2024-02-12 23:29] VITALS: BP 100/46
[2024-02-13 03:02] LABS: Glucose - Point of Care 153 mg/dl (70-99)
[2024-02-13] MEDS: LOMOTIL 2 TABLET PO ×5 (04:55→23:10)
[2024-02-13 05:04] LABS: Hepatitis B Surface Antigen Negative (Negative)
[2024-02-13 05:22] LABS: Hepatitis B Core Ab, Total Negative (Negative); Hepatitis B Surface Antibody Negative; Hepatitis C Antibody Negative (Negative)
[2024-02-13 05:32] LABS: Hepatitis A Antibody, Total Negative (Negative)
[2024-02-13 05:33] VITALS: BMI 29.4
[2024-02-13 07:30] VITALS: BP 109/49
[2024-02-13 07:46] LABS: Glucose - Point of Care 140 mg/dl (70-99)
[2024-02-13] MEDS: HEPARIN 500 UNITS IV ×2 (08:16→08:49)
[2024-02-13 08:52] LABS: Hematocrit 25.5 % (37.0-47.0); Hemoglobin 8.2 g/dL (12.0-16.0); Mean Corp Hgb Conc. 32.2 g/dL (33.0-37.0); Mean Corpuscular Hgb 26.2 pg (27.0-31.0); Mean Corpuscular Volume 81.5 fL (81.0-99.0); Mean Platelet Volume 8.6 fL (7.4-10.4); Platelet Count 187 10^3/uL (130-400); Red Blood Cell Count 3.13 10^6/uL (4.20-5.40); Red Cell Dist. Width 17.7 % (11.5-14.5); White Blood Cell Count 6.1 10^3/uL (4.8-10.8)
[2024-02-13] MEDS: ProAmatine 5 MG PO (08:58)
[2024-02-13] MEDS: NOVOLOG FLEXPEN-LOW RESISTANCE SC ×2 (09:08→12:39)
[2024-02-13] MEDS: HYDROPHOR 1 APPLIC TOPICAL (09:09)
[2024-02-13 09:31] LABS: Blood Urea Nitrogen 28 mg/dl (7-17); Calcium 7.8 mg/dl (8.4-10.2); Carbon Dioxide 24 mmol/L (22-30); Chloride 101 mmol/L (98-107); Estimated Creatinine Clearance 15 ml/min; Glucose 128 mg/dl (70-99); Potassium 3.8 mmol/L (3.5-5.1); Sodium 130 mmol/L (135-145); eGFR 14.73
--- NOTE | 2024-02-13 09:39 | W.PN.NEPH.HD ---
Assessment
-
pt seen during HD
vitals stable on midodrine
Aluminum level 148 form 02/03
after discussing SE profile of Deferoxamine pt decided not to proceed
She already has been through multiple SE from chemo and does not want to risk again
repeat level out pt for surveillance
CVC functions well
high k bath , liberate k in diet
high dose MAGDIEL for anemia
moving forward-high flux filter should continue
d/w pharmacy
Progress Note - Hemodialysis
-
Date of Service: February 13, 2024
Duration: 30 minutes and 3 hours
Potassium Bath: 4
Calcium Bath: 2.5
Opti-Dialyzer: 160
Ultrafiltration: Other
Blood Flow: 400
Dialysate Flow: 600
Heparin: yesx2
EPO: [id number]
[2024-02-13] MEDS: BENADRYL IV (10:15)
--- NOTE | 2024-02-13 10:30 | W.PN.HOSP.TC ---
Today's Communication/Plan
-
await placement
continue HD
monitor PRBC needs
perhaps repeat Aluminum level soon - will d/w Nephrology
Assessment / Plan
Assessment / Plan
Assessment:
Microcytic anemia
- can be seen in aluminium toxicity (iron resistant)
- no clear evidence of blood loss
- Hb 8.2 s/p 3 units PRBCs
- monitor for additional transfusion needs
Hx of colon cancer status post colon resection
- Jul 2023, nodes neg, tumor through colon wall, chemo through [facility]
Chronic diarrhea possibly due to short gut/ malabsorption
- continue Lomotil
- octreotide held by pharmacy
ESRD on HD M//
- Nephrology following
- as per Dr. Aviles: 'Dialysis dependent acute kidney injury following chemotherapy for colon cancer (since 10/02)'
- prn Midodrine
symptomatic Aluminum toxicity neuropathy
- unclear etiology; per OP Artillery Officer (Dr. Fields; [phone]), not related to HD center water supply. patient not on aluminum based binders
- Aluminum level 148 (drawn 02/03)
- multiple discussions with Nephrology, Dr. Fields, and [facility]
- [facility] recommends treatment with Deferoxamine + daily HD; they declined transfer as they felt this can be managed at any hospital
- currently plan is to pursue a new SNF (She does not want to return to [facility]) with HD capability (referral sent to [facility] with HD - this unit is staffed by Dr. Roe group)
- CM following to placement, text from CM, potential to [facility]
Stage 2 sacral pressure injury - POA
- wound care service following
Hypotension in the setting of dialysis, chronic diarrhea
- negative cultures
- continue midodrine
Upper/lower extremity muscle weakness most likely due to aluminum toxicity, also hypokalemia K3.3-->3.1
- replete K+ directed by Nephrology
- CT head no acute abnormality
- PT/OT for rehab placement
Type 2 diabetes
- continue Lantus 12 units
- SSI
- A1c: 6.3%
Anxiety
- continue lorazepam
DVT ppx: SCDs
Code: Full
Anticipated Discharge: 24 - 48 hours
Subjective/Interval History
-
Date of Service: February 13, 2024
feeling well no complaints
Objective Data
-
Labs:
Laboratory Results
02/13/24
07:54
WBC 6.1
Hgb 8.2 L
Hct 25.5 L
Plt Count 187
Sodium 130 L
Potassium 3.8
Chloride 101
Carbon Dioxide 24
BUN 28 H
Creatinine 3.2 H
Glucose 128 H
Calcium 7.8 L
Vital Signs:
Vital Signs
Temp Pulse Resp BP Pulse Ox
98.5 F 71 18 109/49 99
02/13/24 07:30 02/13/24 08:58 02/13/24 07:30 02/13/24 08:58 02/13/24 07:30
I&O
02/12/24 02/13/24 02/14/24
06:59 06:59 06:59
Intake Total 1090 / 1090 1230 / 1230
Balance 1090 / 1090 1230 / 1230
Physical Exam
-
General: No Apparent Distress
HEENT: Normocephalic and Atraumatic
Respiratory: Negative Wheezes or Rales
Cardiac: Regular Rhythm and S1/S2
GI: Soft and Nontender
Genito-urinary: No Costovertebral Tender
Neuro: AO x 3
Psych: Calm
Data Reviewed
-
Total Time Spent with Patient (in minutes): 42
Labs: Labs Reviewed by me
[2024-02-13] MEDS: HEPARIN 4200 UNITS INTRACATH (11:22)
[2024-02-13 11:48] LABS: Glucose - Point of Care 84 mg/dl (70-99)
[2024-02-13] MEDS: VITAMIN C 500 MG PO ×2 (12:38→20:51)
[2024-02-13] MEDS: NEPHROCAP 1 CAPSULE PO (12:38)
[2024-02-13] MEDS: LOMOTIL PO (12:39)
--- NOTE | 2024-02-13 13:47 | CM ---
Spoke with Keyonna at [facility]
Pt was accepted for HD at [facility]
Start date 02/18/24 - MWF schedule - @ 6:45AM
Additional clinical info faxed to [facility] (hepatitis serology panel and access information)
Called Magnus at [facility] on VM for her to return call
Spoke with pt, aware of plan of care.
[2024-02-13 15:00] VITALS: BP 109/49; PULSE 71
[2024-02-13 15:30] VITALS: BP 96/52
[2024-02-13 17:22] LABS: Glucose - Point of Care 155 mg/dl (70-99)
[2024-02-13] MEDS: NOVOLOG FLEXPEN-LOW RESISTANCE 1 UNITS SC (17:48)
[2024-02-13] MEDS: SANTYL OINTMENT 1 APPLIC TOPICAL (17:49)
--- NOTE | 2024-02-13 21:00 | PTCARENOTE ---
Pt complained of occasional, productive cough. HYDRAULIC ROCK DRILL OPERATOR made aware, new order provided, see MAR. Will continue to monitor.
[2024-02-13 22:00] LABS: Glucose - Point of Care 236 mg/dl (70-99)
[2024-02-13] MEDS: ROBITUSSIN 100 MG PO (22:04)
[2024-02-13] MEDS: LANTUS 0.119999999999999996 UNITS SC (22:04)
[2024-02-13] MEDS: ATIVAN 0.5 MG PO (22:04)
[2024-02-13 23:00] VITALS: BP 99/45
[2024-02-14] MEDS: LOMOTIL 2 TABLET PO ×6 (04:44→23:12)
[2024-02-14 06:00] VITALS: BMI 29.2
[2024-02-14 06:16] LABS: Blood Urea Nitrogen 20 mg/dl (7-17); Calcium 7.6 mg/dl (8.4-10.2); Carbon Dioxide 29 mmol/L (22-30); Chloride 102 mmol/L (98-107); Estimated Creatinine Clearance 18 ml/min; Glucose 94 mg/dl (70-99); Potassium 3.4 mmol/L (3.5-5.1); Sodium 132 mmol/L (135-145); eGFR 18.06
[2024-02-14] MEDS: VITAMIN C 500 MG PO ×2 (07:43→21:06)
[2024-02-14 07:46] VITALS: BP 101/41
[2024-02-14] MEDS: HYDROPHOR 1 APPLIC TOPICAL (07:48)
[2024-02-14] MEDS: NEPHROCAP 1 CAPSULE PO (07:48)
[2024-02-14 07:56] LABS: Glucose - Point of Care 94 mg/dl (70-99)
[2024-02-14] MEDS: NOVOLOG FLEXPEN-LOW RESISTANCE SC ×3 (07:56→16:05)
--- NOTE | 2024-02-14 10:10 | W.PN.HOSP.TC ---
Today's Communication/Plan
-
repeat labs Friday with HD
await placement and HD confirmation for [facility]
Assessment / Plan
Assessment / Plan
Assessment:
Microcytic anemia
- can be seen in aluminium toxicity (iron resistant)
- no clear evidence of blood loss
- Hb 8.2 s/p 3 units PRBCs
- monitor for additional transfusion needs
- notified by [employer] via letter that patients 02/05 PRBC unit - the donor tubing was not clamped during discontinuation of donation, increasing susceptibility to contamination, low risk. Given 1 week since this transfusion occurred, without any
signs of sepsis/bacteremia/fever, suspect risk remains low.
Hx of colon cancer status post colon resection
- Jul 2023, nodes neg, tumor through colon wall, chemo through [facility]
Chronic diarrhea possibly due to short gut/ malabsorption
- continue Lomotil
- octreotide held by pharmacy
ESRD on HD M//
- Nephrology following
- as per Dr. Aviles: 'Dialysis dependent acute kidney injury following chemotherapy for colon cancer (since 10/02)'
- prn Midodrine
symptomatic Aluminum toxicity neuropathy
- unclear etiology; per OP Telegraph Office Telephone Clerk (Dr. Fields; [phone]), not related to HD center water supply. patient not on aluminum based binders
- Aluminum level 148 (drawn 02/03)
- multiple discussions with Nephrology, Dr. Fields, and [facility]
- [facility] recommends treatment with Deferoxamine + daily HD; they declined transfer as they felt this can be managed at any hospital
- currently plan is to pursue a new SNF (She does not want to return to [facility]) with HD capability (referral sent to [facility] with HD - this unit is staffed by Dr. Roe group)
- CM following to placement, text from CM, potential to [facility]
Stage 2 sacral pressure injury - POA
- wound care service following
Hypotension in the setting of dialysis, chronic diarrhea
- negative cultures
- continue midodrine
Upper/lower extremity muscle weakness most likely due to aluminum toxicity, also hypokalemia K3.3-->3.1
- replete K+ directed by Nephrology
- CT head no acute abnormality
- PT/OT for rehab placement
Type 2 diabetes
- continue Lantus 12 units
- SSI
- A1c: 6.3%
Anxiety
- continue lorazepam
DVT ppx: SCDs
Code: Full
Anticipated Discharge: > 48 hours
Subjective/Interval History
-
Date of Service: February 14, 2024
denies any new complaints at present
Objective Data
-
Labs:
Laboratory Results
02/14/24
05:37
Sodium 132 L
Potassium 3.4 L
Chloride 102
Carbon Dioxide 29
BUN 20 H
Creatinine 2.7 H
Glucose 94
Calcium 7.6 L
Vital Signs:
Vital Signs
Temp Pulse Resp BP Pulse Ox
98.3 F 70 17 101/41 97
02/14/24 07:46 02/14/24 07:46 02/14/24 07:46 02/14/24 07:46 02/14/24 07:46
I&O
02/13/24 02/14/24 02/15/24
06:59 06:59 06:59
Intake Total 1230 / 1230 920 / 920
Balance 1230 / 1230 920 / 920
Physical Exam
-
General: No Apparent Distress
HEENT: Normocephalic and Atraumatic
Respiratory: Negative Wheezes or Rales
Cardiac: Regular Rhythm and S1/S2
GI: Soft and Nontender
Genito-urinary: No Costovertebral Tender
Musculoskeletal: No Edema
Neuro: AO x 3
Hematologic / Lymphatic: No Lymphadenopathy
Psych: Calm
Data Reviewed
-
Total Time Spent with Patient (in minutes): 42
Labs: Labs Reviewed by me
[2024-02-14 11:34] LABS: Glucose - Point of Care 149 mg/dl (70-99)
[2024-02-14 15:00] VITALS: BP 107/45
[2024-02-14 15:56] LABS: Glucose - Point of Care 108 mg/dl (70-99)
--- NOTE | 2024-02-14 17:17 | W.PN.NEPH.PH ---
Today's Communication / Plan
-
await placement
Assessment/Plan
-
Impression:
Weakness
Hypokalemia
Dialysis dependent acute kidney injury following chemotherapy for colon cancer (since 10/02)
Left IJ hemodialysis cath
Right anterior chest wall Mediport
Chronic diarrhea
Suspected aluminum toxicity
History of colon cancer with colostomy and reversal in August 2023
Diabetes
Ongoing hypotension on midodrine support
Anemia
Sacral wound
Upper/lower extremity muscle weakness possibly due to aluminum toxicity
Anxiety
Plan:
symp seem to improve
after long discussion yesterday about SE profile of Deferoxamine pt decided not to take it
she will need surveillance Aluminium levels as out pt
should cont high flux membrane
-Maintain midodrine with HD for chronic hypotension
-MAGDIEL for anemia, follow h/h
-replete K, liberated in diet, if persisted add rhina po kcl
next HD on Friday
-
-
Date of Service: February 14, 2024
CC / HPI / ROS
-
Chief Complaint:
ESRD
History of Present Illness:
BP low but stable
tolerated HD yesterday
anemia stable hb >8, jesusita 7.6 uncorrected
Review of Systems:
no CP/SOB
much better
tearful with overwhelming clinical issues
Labs
-
Labs:
WBC 6.1 10^3/uL (4.8-10.8) 02/13/24 07:54
RBC 3.13 10^6/uL (4.20-5.40) L 02/13/24 07:54
Hgb 8.2 g/dL (12.0-16.0) L 02/13/24 07:54
Hct 25.5 % (37.0-47.0) L 02/13/24 07:54
Plt Count 187 10^3/uL (130-400) 02/13/24 07:54
Sodium 132 mmol/L (135-145) L 02/14/24 05:37
Potassium 3.4 mmol/L (3.5-5.1) L 02/14/24 05:37
Chloride 102 mmol/L (98-107) 02/14/24 05:37
Carbon Dioxide 29 mmol/L (22-30) 02/14/24 05:37
BUN 20 mg/dl (7-17) H 02/14/24 05:37
Creatinine 2.7 mg/dL (0.6-1.0) H 02/14/24 05:37
eGFR 18.06 02/14/24 05:37
Glucose 94 mg/dl (70-99) 02/14/24 05:37
Calcium 7.6 mg/dl (8.4-10.2) L 02/14/24 05:37
Albumin 2.1 g/dl (3.5-5.0) L 02/05/24 04:22
Physical Exam
-
Vital Signs:
Vital Signs
Temp Pulse Resp BP Pulse Ox
98.7 F 81 18 107/45 97
02/14/24 15:00 02/14/24 15:00 02/14/24 15:00 02/14/24 15:00 02/14/24 15:00
Cardiovascular:: Regular rate and rhythm
Respiratory:: Bilateral: CTA
Lung Excursion:: Normal
Abdomen:: Nontender and Soft
Extremity Edema:: None: Bilateral:
Hopson Catheter: No
[2024-02-14] MEDS: SANTYL OINTMENT 1 APPLIC TOPICAL (18:33)
[2024-02-14 22:08] LABS: Glucose - Point of Care 171 mg/dl (70-99)
[2024-02-14] MEDS: LANTUS 0.119999999999999996 UNITS SC (22:14)
[2024-02-14] MEDS: ATIVAN 0.5 MG PO (22:14)
[2024-02-14 23:00] VITALS: BP 115/44
[2024-02-15] MEDS: LOMOTIL 2 TABLET PO ×4 (04:49→15:13)
[2024-02-15] MEDS: ULTRAM 50 MG PO (05:29)
--- NOTE | 2024-02-15 05:34 | PTCARENOTE ---
Pt complained of moderate to severe pain throughout L thumb joint. Area surrounding L thumb and joint appear slightly swollen and small light purple bruise observed. Pt stated, 'It started last night and has gotten a lot worse'. Pt winced in pain
when this RN touched hand to assess. PRN pain medication provided, see MAR. HIGHWAY ENGINEERING TECHNICIAN made aware, HIGHWAY ENGINEERING TECHNICIAN at bedside, L hand XR ordered. Will reassess pain.
[2024-02-15 06:00] VITALS: BMI 28.8
[2024-02-15 07:00] VITALS: BP 106/48
[2024-02-15 07:48] LABS: Glucose - Point of Care 155 mg/dl (70-99)
[2024-02-15] MEDS: NOVOLOG FLEXPEN-LOW RESISTANCE 1 UNITS SC (08:42)
[2024-02-15] MEDS: NEPHROCAP 1 CAPSULE PO (08:43)
[2024-02-15] MEDS: HYDROPHOR 1 APPLIC TOPICAL (08:43)
[2024-02-15] MEDS: VITAMIN C 500 MG PO ×2 (08:43→20:04)
[2024-02-15 12:05] LABS: Glucose - Point of Care 136 mg/dl (70-99)
[2024-02-15] MEDS: NOVOLOG FLEXPEN-LOW RESISTANCE SC ×2 (12:16→16:31)
--- NOTE | 2024-02-15 12:55 | W.PN.HOSP.TC ---
Today's Communication/Plan
-
xray pending
if negative; treat as presumptive gout and check uric acid level
Assessment / Plan
Assessment / Plan
Assessment:
L thumb pain/redness/swelling
- possible gout - check uric acid. apply ice. start treatment if XR negative
Microcytic anemia
- can be seen in aluminium toxicity (iron resistant)
- no clear evidence of blood loss
- Hb 8.2 s/p 3 units PRBCs
- monitor for additional transfusion needs
- notified by [employer] via letter that patients 02/05 PRBC unit - the donor tubing was not clamped during discontinuation of donation, increasing susceptibility to contamination, low risk. Given 1 week since this transfusion occurred, without any
signs of sepsis/bacteremia/fever, suspect risk remains low.
Hx of colon cancer status post colon resection
- Jul 2023, nodes neg, tumor through colon wall, chemo through [facility]
Chronic diarrhea possibly due to short gut/ malabsorption
- continue Lomotil
- octreotide held by pharmacy
ESRD on HD M//
- Nephrology following
- as per Dr. Aviles: 'Dialysis dependent acute kidney injury following chemotherapy for colon cancer (since 10/02)'
- prn Midodrine
symptomatic Aluminum toxicity neuropathy
- unclear etiology; per OP Automatic Washer Mechanic (Dr. Fields; [phone]), not related to HD center water supply. patient not on aluminum based binders
- Aluminum level 148 (drawn 02/03)
- multiple discussions with Nephrology, Dr. Fields, and [facility]
- [facility] recommends treatment with Deferoxamine + daily HD; they declined transfer as they felt this can be managed at any hospital
- currently plan is to pursue a new SNF (She does not want to return to [facility]) with HD capability (referral sent to [facility] with HD - this unit is staffed by Dr. Roe group)
- CM following to placement, text from CM, potential to [facility]
Stage 2 sacral pressure injury - POA
- wound care service following
Hypotension in the setting of dialysis, chronic diarrhea
- negative cultures
- continue midodrine
Upper/lower extremity muscle weakness most likely due to aluminum toxicity, also hypokalemia K3.3-->3.1
- replete K+ directed by Nephrology
- CT head no acute abnormality
- PT/OT for rehab placement
Type 2 diabetes
- continue Lantus 12 units
- SSI
- A1c: 6.3%
Anxiety
- continue lorazepam
DVT ppx: SCDs
Code: Full
Anticipated Discharge: > 48 hours
Subjective/Interval History
-
Date of Service: February 15, 2024
reports L thumb joint pain, redness
no fevers
no trauma
Objective Data
-
Vital Signs:
Vital Signs
Temp Pulse Resp BP Pulse Ox
98.4 F 79 18 106/48 98
02/15/24 07:00 02/15/24 07:00 02/15/24 07:00 02/15/24 07:00 02/15/24 07:00
I&O
02/14/24 02/15/24 02/16/24
06:59 06:59 06:59
Intake Total 920 / 920 770 / 770
Balance 920 / 920 770 / 770
Physical Exam
-
General: No Apparent Distress
HEENT: Normocephalic and Atraumatic
Respiratory: Negative Wheezes or Rales
Cardiac: Regular Rhythm and S1/S2
GI: Soft and Nontender
Musculoskeletal: Other (L thumb joint redness, painful ROM, swelling)
Neuro: AO x 3
Hematologic / Lymphatic: No Lymphadenopathy
Psych: Calm
Data Reviewed
-
Total Time Spent with Patient (in minutes): 42
Labs: Labs Reviewed by me
--- NOTE | 2024-02-15 13:48 | W.PN.NEPH.PH ---
Today's Communication / Plan
-
HD tomorrow
Assessment/Plan
-
Impression:
Weakness
Hypokalemia
Dialysis dependent acute kidney injury following chemotherapy for colon cancer (since 10/02)
Left IJ hemodialysis cath
Right anterior chest wall Mediport
Chronic diarrhea
Suspected aluminum toxicity
History of colon cancer with colostomy and reversal in August 2023
Diabetes
Ongoing hypotension on midodrine support
Anemia
Sacral wound
Upper/lower extremity muscle weakness possibly due to aluminum toxicity
Anxiety
Plan:
HD tomorrow
after long discussion 02/12 about SE profile of Deferoxamine pt decided not to take it
she will need surveillance Aluminium levels as out pt
should cont high flux membrane
-Maintain midodrine with HD for chronic hypotension
-MAGDIEL for anemia, follow h/h
-replete K, liberated in diet, start po kcl 20meq daily
left thumb pain and MCP joint swelling, Xray pending, ?gout-defer to primary
-
-
Date of Service: February 15, 2024
CC / HPI / ROS
-
Chief Complaint:
ESRD
History of Present Illness:
BP low but stable
tolerated HD yesterday
anemia stable hb 8.2 on 02/12
k low 3.4
Review of Systems:
no CP/SOB
left thumb pain
Labs
-
Labs:
WBC 6.1 10^3/uL (4.8-10.8) 02/13/24 07:54
RBC 3.13 10^6/uL (4.20-5.40) L 02/13/24 07:54
Hgb 8.2 g/dL (12.0-16.0) L 02/13/24 07:54
Hct 25.5 % (37.0-47.0) L 02/13/24 07:54
Plt Count 187 10^3/uL (130-400) 02/13/24 07:54
Sodium 132 mmol/L (135-145) L 02/14/24 05:37
Potassium 3.4 mmol/L (3.5-5.1) L 02/14/24 05:37
Chloride 102 mmol/L (98-107) 02/14/24 05:37
Carbon Dioxide 29 mmol/L (22-30) 02/14/24 05:37
BUN 20 mg/dl (7-17) H 02/14/24 05:37
Creatinine 2.7 mg/dL (0.6-1.0) H 02/14/24 05:37
eGFR 18.06 02/14/24 05:37
Glucose 94 mg/dl (70-99) 02/14/24 05:37
Calcium 7.6 mg/dl (8.4-10.2) L 02/14/24 05:37
Albumin 2.1 g/dl (3.5-5.0) L 02/05/24 04:22
Physical Exam
-
Vital Signs:
Vital Signs
Temp Pulse Resp BP Pulse Ox
98.4 F 79 18 106/48 98
02/15/24 07:00 02/15/24 07:00 02/15/24 07:00 02/15/24 07:00 02/15/24 07:00
Cardiovascular:: Regular rate and rhythm
Respiratory:: Bilateral: CTA
Lung Excursion:: Normal
Abdomen:: Nontender and Soft
Extremity Edema:: None: Bilateral:
Hopson Catheter: No
[2024-02-15] MEDS: TYLENOL 650 MG PO ×2 (14:08→20:09)
[2024-02-15 15:00] VITALS: BP 141/72
[2024-02-15] MEDS: DECADRON 10 MG IV (15:12)
[2024-02-15 16:30] LABS: Glucose - Point of Care 111 mg/dl (70-99)
[2024-02-15] MEDS: SANTYL OINTMENT 1 APPLIC TOPICAL (17:13)
[2024-02-15] MEDS: LOMOTIL PO (20:04)
[2024-02-15 21:43] LABS: Glucose - Point of Care 240 mg/dl (70-99)
[2024-02-15] MEDS: LANTUS 0.119999999999999996 UNITS SC (21:52)
[2024-02-15] MEDS: ATIVAN 0.5 MG PO (21:52)
[2024-02-15 22:55] VITALS: BP 106/46
[2024-02-16] MEDS: LOMOTIL 2 TABLET PO ×4 (00:26→20:54)
[2024-02-16 06:00] VITALS: BMI 29.2
[2024-02-16 06:22] VITALS: BMI 29.2
[2024-02-16 07:00] VITALS: BP 108/51
[2024-02-16 07:19] LABS: Hematocrit 24.8 % (37.0-47.0); Hemoglobin 7.8 g/dL (12.0-16.0); Mean Corp Hgb Conc. 31.5 g/dL (33.0-37.0); Mean Corpuscular Hgb 25.7 pg (27.0-31.0); Mean Corpuscular Volume 81.8 fL (81.0-99.0); Mean Platelet Volume 8.6 fL (7.4-10.4); Platelet Count 197 10^3/uL (130-400); Red Blood Cell Count 3.03 10^6/uL (4.20-5.40); Red Cell Dist. Width 17.6 % (11.5-14.5); White Blood Cell Count 5.3 10^3/uL (4.8-10.8)
[2024-02-16 07:46] LABS: Blood Urea Nitrogen 43 mg/dl (7-17); Calcium 7.7 mg/dl (8.4-10.2); Carbon Dioxide 23 mmol/L (22-30); Chloride 102 mmol/L (98-107); Estimated Creatinine Clearance 10 ml/min; Glucose 185 mg/dl (70-99); Potassium 3.8 mmol/L (3.5-5.1); Sodium 132 mmol/L (135-145); Uric Acid 6.1 mg/dl (2.5-6.2); eGFR 9.06
[2024-02-16 08:09] LABS: Glucose - Point of Care 196 mg/dl (70-99)
--- NOTE | 2024-02-16 09:35 | CM ---
Addendum entered by Elizabeth Leon 02/16/24 16:07:
Received determination from Magnus at [facility]. Due to pts HD needs, Kelation therapy, and progress with PT they are unable to offer a bed. Dr Mo made aware.Referrals sent in [facility] for SNF's with HD. Made aware in referral need for
special filter/membrane - F200 NR/Optiflux F200NR
Plan - snf when accepted. Will need auth
Addendum entered by Elizabeth Leon 02/16/24 15:18:
Additional notes faxed to [facility] - current PT notes
Original Note:
Spoke with Magnus at [facility] [phone]
Requesting updated clinicals and PT/OT notes
Updates faxed to [phone]
Awaiting determination
Will need auth
[2024-02-16 09:38] VITALS: BP 121/62; PULSE 79
[2024-02-16 09:41] VITALS: BP 121/62; PULSE 79
[2024-02-16] MEDS: NOVOLOG FLEXPEN-LOW RESISTANCE 1 UNITS SC (10:26)
[2024-02-16] MEDS: HYDROPHOR 1 APPLIC TOPICAL (10:28)
[2024-02-16] MEDS: VITAMIN C 500 MG PO ×2 (10:29→20:54)
[2024-02-16] MEDS: NEPHROCAP 1 CAPSULE PO (10:29)
--- NOTE | 2024-02-16 10:35 | PTCARENOTE ---
Patient OOb with walker and assist x2 to bathroom. Patient has no c/o pain and feels leg weakness is improving. Patient encourage to keep repositioning self while in bed, softcare overlay reinflated. Sacral foam dressing intact.
[2024-02-16 11:33] LABS: Glucose - Point of Care 181 mg/dl (70-99)
[2024-02-16] MEDS: NOVOLOG FLEXPEN-LOW RESISTANCE SC ×2 (13:41→16:30)
[2024-02-16] MEDS: LOMOTIL PO ×2 (13:42→16:29)
--- NOTE | 2024-02-16 13:42 | W.PN.HOSP.TC ---
Today's Communication/Plan
-
prednisone for presumed gout
DC planning to SNF
Assessment / Plan
Assessment / Plan
Assessment:
L thumb pain/redness/swelling
- possible gout - uric acid normal
- s/p Decadron with dramatic improvement, finish 2 further doses of PO prednisone
- XR negative
Microcytic anemia
- can be seen in aluminium toxicity (iron resistant)
- no clear evidence of blood loss
- Hb 7.8. Has received 3 units PRBCs this admission
- monitor for additional transfusion needs
- notified by [employer] via letter that patients 02/05 PRBC unit - the donor tubing was not clamped during discontinuation of donation, increasing susceptibility to contamination, low risk. Given 1 week since this transfusion occurred, without any
signs of sepsis/bacteremia/fever, suspect risk remains low. Patient is aware and letter placed in paper chart. Pathology/Blood bank notified that patient was made aware.
Hx of colon cancer status post colon resection
- Jul 2023, nodes neg, tumor through colon wall, chemo through [facility]
Chronic diarrhea possibly due to short gut/ malabsorption
- continue Lomotil
- octreotide held by pharmacy
ESRD on HD M//
- Nephrology following
- as per Dr. Aviles: 'Dialysis dependent acute kidney injury following chemotherapy for colon cancer (since 10/02)'
- prn Midodrine
symptomatic Aluminum toxicity neuropathy
- unclear etiology; per OP Parts Puller (Dr. Fields; [phone]), not related to HD center water supply. patient not on aluminum based binders
- Aluminum level 148 (drawn 02/03)
- multiple discussions with Nephrology, Dr. Fields, and [facility]rology
- [facility] recommends treatment with Deferoxamine + daily HD; they declined transfer as they felt this can be managed at any hospital
- currently plan is to pursue a new SNF (She does not want to return to [facility]) with HD capability (referral sent to [facility] with HD - this unit is staffed by Dr. Roe group)
- CM following to placement, text from CM, potential to [facility] vs other facility pending acceptance.
Stage 2 sacral pressure injury - POA
- wound care service following
Hypotension in the setting of dialysis, chronic diarrhea
- negative cultures
- continue midodrine
Upper/lower extremity muscle weakness most likely due to aluminum toxicity, also hypokalemia K3.3-->3.1
- replete K+ directed by Nephrology
- CT head no acute abnormality
- PT/OT for rehab placement
Type 2 diabetes
- continue Lantus 12 units
- SSI
- A1c: 6.3%
Anxiety
- continue lorazepam
DVT ppx: SCDs
Code: Full
Anticipated Discharge: 24 - 48 hours
Subjective/Interval History
-
Date of Service: February 16, 2024
L thumb arthritis improving
Objective Data
-
Labs:
Laboratory Results
02/16/24
07:04
WBC 5.3
Hgb 7.8 L
Hct 24.8 L
Plt Count 197
Sodium 132 L
Potassium 3.8
Chloride 102
Carbon Dioxide 23
BUN 43 H
Creatinine 4.8 H*
Glucose 185 H
Calcium 7.7 L
Vital Signs:
Vital Signs
Temp Pulse Resp BP Pulse Ox
98.2 F 59 17 108/51 95
02/16/24 07:00 02/16/24 07:00 02/16/24 07:00 02/16/24 07:00 02/16/24 07:00
I&O
02/15/24 02/16/24 02/17/24
06:59 06:59 06:59
Intake Total 770 / 770 810 / 810
Balance 770 / 770 810 / 810
Physical Exam
-
General: No Apparent Distress
HEENT: Normocephalic and Atraumatic
Respiratory: Negative Wheezes or Rales
Cardiac: Regular Rhythm and S1/S2
Genito-urinary: No Costovertebral Tender
Musculoskeletal: No Edema
Neuro: AO x 3
Hematologic / Lymphatic: No Lymphadenopathy
Psych: Calm
Data Reviewed
-
Total Time Spent with Patient (in minutes): 42
Labs: Labs Reviewed by me
--- NOTE | 2024-02-16 14:31 | W.PN.NEPH.HD ---
Assessment
-
feeling well on HD
did not take deferoxamine
continues to have some minimal UOP
Progress Note - Hemodialysis
-
Date of Service: February 16, 2024
Duration: 30 minutes and 3 hours
Potassium Bath: 3
Calcium Bath: 2.5
Opti-Dialyzer: 200
Ultrafiltration: Other
Blood Flow: 400
Dialysate Flow: 600
Heparin: 500x2
EPO: 10K
[2024-02-16 15:00] VITALS: BP 130/66
[2024-02-16] MEDS: HEPARIN 500 UNITS IV ×2 (15:07→15:08)
[2024-02-16] MEDS: RETACRIT 10000 UNITS IV (15:07)
--- NOTE | 2024-02-16 15:20 | CM ---
Case management following for d/c planning
IV abx added. ID following
For snf at d/c [facility] accepted - will need auth
Plan - [facility] when medically stable - need auth
[2024-02-16 16:26] LABS: Glucose - Point of Care 110 mg/dl (70-99)
[2024-02-16] MEDS: HEPARIN 4400 UNITS INTRACATH (16:44)
[2024-02-16] MEDS: BENADRYL IV (16:44)
[2024-02-16] MEDS: TYLENOL 650 MG PO (20:54)
[2024-02-16 21:25] LABS: Glucose - Point of Care 262 mg/dl (70-99)
[2024-02-16] MEDS: LANTUS 0.119999999999999996 UNITS SC (22:34)
[2024-02-16] MEDS: ATIVAN 0.5 MG PO (22:34)
[2024-02-16 23:05] VITALS: BP 104/48
[2024-02-17] MEDS: LOMOTIL 2 TABLET PO ×3 (00:18→21:14)
[2024-02-17] MEDS: LOMOTIL PO ×3 (04:30→16:02)
[2024-02-17 06:00] VITALS: BMI 29.1
[2024-02-17 06:09] LABS: Hematocrit 23.6 % (37.0-47.0); Hemoglobin 7.6 g/dL (12.0-16.0)
[2024-02-17 07:00] VITALS: BP 105/52
--- NOTE | 2024-02-17 07:31 | W.PN.HOSP.TC ---
Today's Communication/Plan
-
HD as per Nephro
Monitor H&H
glycemic control
discharge planning SNF
Assessment / Plan
Assessment / Plan
Physical Exam
General: No Apparent Distress
HEENT: Normocephalic and Atraumatic
Respiratory: Negative Wheezes or Rales
Cardiac: Regular Rhythm and S1/S2
Genito-urinary: No Costovertebral Tender
Musculoskeletal: No Edema
Neuro: AO x 3
Hematologic / Lymphatic: No Lymphadenopathy
Psych: Calm
Assessment:
L thumb pain/redness/swelling
- possible gout - uric acid normal
- s/p Decadron with dramatic improvement, finish 2 further doses of PO prednisone, completed monitor off
- XR negative
-pain resolved
Microcytic anemia
- can be seen in aluminium toxicity (iron resistant)
- no clear evidence of blood loss
- Hb 7.8. Has received 3 units PRBCs this admission
- monitor for additional transfusion needs
- notified by [employer] via letter that patients 02/05 PRBC unit - the donor tubing was not clamped during discontinuation of donation, increasing susceptibility to contamination, low risk. Given 1 week since this transfusion occurred, without any
signs of sepsis/bacteremia/fever, suspect risk remains low. Patient is aware and letter placed in paper chart. Pathology/Blood bank notified that patient was made aware.
Hx of colon cancer status post colon resection
- Jul 2023, nodes neg, tumor through colon wall, chemo through [facility]
Chronic diarrhea possibly due to short gut/ malabsorption
- continue Lomotil
- octreotide held by pharmacy
ESRD on HD M//
- Nephrology eval appreciated
- as per Dr. Aviles: 'Dialysis dependent acute kidney injury following chemotherapy for colon cancer (since 10/02)'
- prn Midodrine
symptomatic Aluminum toxicity neuropathy
- unclear etiology; per OP Chief Pilot (Dr. Fields; [phone]), not related to HD center water supply. patient not on aluminum based binders
- Aluminum level 148 (drawn 02/03)
- multiple discussions with Nephrology, Dr. Fields, and [facility]
- [facility] recommends treatment with Deferoxamine + daily HD; they declined transfer as they felt this can be managed at any hospital
- currently plan is to pursue a new SNF (She does not want to return to [facility]) with HD capability (referral sent to [facility] with HD - this unit is staffed by Dr. Roe group)
- CM following to placement, text from CM, potential to [facility] vs other facility pending acceptance.
Stage 2 sacral pressure injury - POA
- wound care service following
Hypotension in the setting of dialysis, chronic diarrhea
- negative cultures
- continue midodrine
Upper/lower extremity muscle weakness most likely due to aluminum toxicity, also hypokalemia K3.3-->3.1
- replete K+ directed by Nephrology
- CT head no acute abnormality
- PT/OT for rehab placement
Type 2 diabetes
- continue Lantus 12 units
- SSI
- A1c: 6.3%
Anxiety
- continue lorazepam
DVT ppx: SCDs
Code: Full
I spent a total of 50 minutes with the patient or on the floor. More than 50% of this time involved counseling and coordination of care.
Anticipated Discharge: 24 - 48 hours
Subjective/Interval History
-
Date of Service: February 17, 2024
Reports feeling well. pain free. Weakness improving. Denies new acute issues at this time.
Objective Data
-
Labs:
Laboratory Results
02/17/24
05:54
Hgb 7.6 L
Hct 23.6 L
Vital Signs:
Vital Signs
Temp Pulse Resp BP Pulse Ox
98.2 F 72 17 105/52 98
02/17/24 07:00 02/17/24 07:00 02/17/24 07:00 02/17/24 07:00 02/17/24 07:00
I&O
02/16/24 02/17/24 02/18/24
06:59 06:59 06:59
Intake Total 810 / 810 960 / 960
Balance 810 / 810 960 / 960
[2024-02-17 07:49] LABS: Glucose - Point of Care 78 mg/dl (70-99)
[2024-02-17] MEDS: VITAMIN C 500 MG PO ×2 (08:41→21:14)
[2024-02-17] MEDS: HYDROPHOR 1 APPLIC TOPICAL (08:41)
[2024-02-17] MEDS: NOVOLOG FLEXPEN-LOW RESISTANCE SC ×3 (08:41→16:58)
[2024-02-17] MEDS: NEPHROCAP 1 CAPSULE PO (08:41)
[2024-02-17 11:16] LABS: Glucose - Point of Care 102 mg/dl (70-99)
--- NOTE | 2024-02-17 12:09 | PN.CDI ---
CDI
- -
CDI:
Physician Documentation Request
Admit Date: 02/04/24 20:37
Dear Doctor Chely,
Patient admitted with anemia.
Na levels documented below:
Laboratory Tests
02/05/24 02/09/24 02/10/24
18:03 07:42 04:31
Sodium 132 L 130 L 129 L
02/11/24 02/12/24 02/13/24
04:55 04:49 07:54
Sodium 130 L 131 L 130 L
Based on the above, please clarify in the progress notes, the appropriate diagnosis, if significant, that supports the above abnormalities and additional evaluation, monitoring and/or treatment rendered:
Hyponatremia
Insignificant abnormal lab finding
Other
Use of terms such as suspected, likely, concern for, or probable (associated with a specific diagnosis that is being evaluated, monitored, or treated as if it exists) are acceptable and can be coded in the inpatient setting, when documented at the
time of discharge.
Thank you,
Veronica RUSSELL,RN,CCDS
CDI Specialist
Available via tiger text
Please use your independent medical judgment in providing your response.
--- NOTE | 2024-02-17 13:23 | W.PN.NEPH.PH ---
Today's Communication / Plan
-
- HD tomorrow per usual schedule
Assessment/Plan
-
Impression:
Weakness
Hypokalemia
Dialysis dependent acute kidney injury following chemotherapy for colon cancer (since 10/02)
Left IJ hemodialysis cath
Right anterior chest wall Mediport
Chronic diarrhea
Suspected aluminum toxicity
History of colon cancer with colostomy and reversal in August 2023
Diabetes
Ongoing hypotension on midodrine support
Anemia
Sacral wound
Upper/lower extremity muscle weakness possibly due to aluminum toxicity
Anxiety
Plan:
HD tomorrow
after long discussion 02/12 about SE profile of Deferoxamine pt decided not to take it
she will need surveillance Aluminium levels as out pt, ordered another level for tomorrow
should cont high flux membrane
-Maintain midodrine with HD for chronic hypotension
-MAGDIEL for anemia, follow h/h
-replete K, liberated in diet, start po kcl 20meq daily
left thumb pain and MCP joint swelling, Xray pending, ?gout-defer to primary
-
-
Date of Service: February 17, 2024
CC / HPI / ROS
-
Chief Complaint:
ESRD
History of Present Illness:
BP low but stable
tolerated HD yesterday
anemia stable hb 7.6 today
Review of Systems:
no CP/SOB
left thumb pain
Labs
-
Labs:
WBC 5.3 10^3/uL (4.8-10.8) 02/16/24 07:04
RBC 3.03 10^6/uL (4.20-5.40) L 02/16/24 07:04
Hgb 7.6 g/dL (12.0-16.0) L 02/17/24 05:54
Hct 23.6 % (37.0-47.0) L 02/17/24 05:54
Plt Count 197 10^3/uL (130-400) 02/16/24 07:04
Sodium 132 mmol/L (135-145) L 02/16/24 07:04
Potassium 3.8 mmol/L (3.5-5.1) 02/16/24 07:04
Chloride 102 mmol/L (98-107) 02/16/24 07:04
Carbon Dioxide 23 mmol/L (22-30) 02/16/24 07:04
BUN 43 mg/dl (7-17) H 02/16/24 07:04
Creatinine 4.8 mg/dL (0.6-1.0) H* 02/16/24 07:04
eGFR 9.06 02/16/24 07:04
Glucose 185 mg/dl (70-99) H 02/16/24 07:04
Calcium 7.7 mg/dl (8.4-10.2) L 02/16/24 07:04
Albumin 2.1 g/dl (3.5-5.0) L 02/05/24 04:22
Physical Exam
-
Vital Signs:
Vital Signs
Temp Pulse Resp BP Pulse Ox
98.2 F 72 17 105/52 98
02/17/24 07:00 02/17/24 07:00 02/17/24 07:00 02/17/24 07:00 02/17/24 07:00
Cardiovascular:: Regular rate and rhythm
Respiratory:: Bilateral: CTA
Lung Excursion:: Normal
Abdomen:: Nontender and Soft
Bowel Sounds:: Normal
Extremity Edema:: None: Bilateral:
Hopson Catheter: No
[2024-02-17 15:18] VITALS: BP 120/55
--- NOTE | 2024-02-17 15:20 | CM ---
CM following for d/c planning
Pt accepted at [facility] does not take insurance
The [facility] can accommodate needed HD filter
Spoke with pt - agreed to [facility]
Additional clinicals faxed to [phone] - awaiting reply
Plan - d/c to snf will need auth
[2024-02-17 15:40] VITALS: BP 112/53; PULSE 81
[2024-02-17 16:31] LABS: Glucose - Point of Care 106 mg/dl (70-99)
[2024-02-17 22:02] LABS: Glucose - Point of Care 142 mg/dl (70-99)
[2024-02-17] MEDS: ATIVAN 0.5 MG PO (22:04)
[2024-02-17] MEDS: LANTUS 0.119999999999999996 UNITS SC (22:05)
[2024-02-17 23:10] VITALS: BP 118/48
[2024-02-18] MEDS: LOMOTIL PO ×4 (01:00→12:21)
[2024-02-18 05:22] LABS: Hematocrit 23.9 % (37.0-47.0); Hemoglobin 7.5 g/dL (12.0-16.0); Mean Corp Hgb Conc. 31.4 g/dL (33.0-37.0); Mean Corpuscular Hgb 24.9 pg (27.0-31.0); Mean Corpuscular Volume 79.4 fL (81.0-99.0); Mean Platelet Volume 8.3 fL (7.4-10.4); Platelet Count 191 10^3/uL (130-400); Red Blood Cell Count 3.01 10^6/uL (4.20-5.40); Red Cell Dist. Width 17.8 % (11.5-14.5); White Blood Cell Count 6.4 10^3/uL (4.8-10.8)
[2024-02-18 05:51] LABS: Blood Urea Nitrogen 32 mg/dl (7-17); Calcium 7.6 mg/dl (8.4-10.2); Carbon Dioxide 26 mmol/L (22-30); Chloride 100 mmol/L (98-107); Estimated Creatinine Clearance 14 ml/min; Glucose 71 mg/dl (70-99); Sodium 134 mmol/L (135-145)
[2024-02-18 05:56] LABS: Potassium 3.3 mmol/L (3.5-5.1)
[2024-02-18 06:00] VITALS: BMI 29.1
[2024-02-18 07:00] VITALS: BP 103/57
--- NOTE | 2024-02-18 07:26 | W.PN.HOSP.TC ---
Today's Communication/Plan
-
HD as per Nephro
Monitor H&H
glycemic control
prednisone taper
discharge planning SNF
Assessment / Plan
Assessment / Plan
Physical Exam
General: No Apparent Distress
HEENT: Normocephalic and Atraumatic
Respiratory: Negative Wheezes or Rales
Cardiac: Regular Rhythm and S1/S2
Genito-urinary: No Costovertebral Tender
Musculoskeletal: No Edema
Neuro: AO x 3
Hematologic / Lymphatic: No Lymphadenopathy
Psych: Calm
Assessment:
L thumb pain/redness/swelling
- possible gout - uric acid normal
- s/p Decadron with dramatic improvement, pain improved but not resolved, remains stiff, prednisone taper resumed
- XR negative
Microcytic anemia
- can be seen in aluminium toxicity (iron resistant)
- no clear evidence of blood loss
- Hb 7.8. Has received 3 units PRBCs this admission
- monitor for additional transfusion needs
- notified by [employer] via letter that patients 02/05 PRBC unit - the donor tubing was not clamped during discontinuation of donation, increasing susceptibility to contamination, low risk. Given 1 week since this transfusion occurred, without any
signs of sepsis/bacteremia/fever, suspect risk remains low. Patient is aware and letter placed in paper chart. Pathology/Blood bank notified that patient was made aware.
Hx of colon cancer status post colon resection
- Jul 2023, nodes neg, tumor through colon wall, chemo through [facility]
Chronic diarrhea possibly due to short gut/ malabsorption
- continue Lomotil
- octreotide held by pharmacy
ESRD on HD M//
- Nephrology eval appreciated
- as per Dr. Aviles: 'Dialysis dependent acute kidney injury following chemotherapy for colon cancer (since 10/02)'
- prn Midodrine
symptomatic Aluminum toxicity neuropathy
- unclear etiology; per OP Compliance Advisor (Dr. Fields; [phone]), not related to HD center water supply. patient not on aluminum based binders
- Aluminum level 148 (drawn 02/03)
- multiple discussions with Nephrology, Dr. Fields, and [facility]
- [facility] recommends treatment with Deferoxamine + daily HD; they declined transfer as they felt this can be managed at any hospital
- currently plan is to pursue a new SNF (She does not want to return to [facility]) with HD capability (referral sent to [facility] with HD - this unit is staffed by Dr. Roe group)
- CM following to placement, text from CM, potential to [facility] vs other facility pending acceptance.
Stage 2 sacral pressure injury - POA
- wound care service following
Hypotension in the setting of dialysis, chronic diarrhea
- negative cultures
- continue midodrine
Upper/lower extremity muscle weakness most likely due to aluminum toxicity, also hypokalemia K3.3-->3.1
- replete K+ directed by Nephrology
- CT head no acute abnormality
- PT/OT for rehab placement
Type 2 diabetes
- continue Lantus 12 units
- SSI
- A1c: 6.3%
Anxiety
- continue lorazepam
DVT ppx: SCDs
Code: Full
I spent a total of 50 minutes with the patient or on the floor. More than 50% of this time involved counseling and coordination of care.
Anticipated Discharge: 24 - 48 hours
Subjective/Interval History
-
Date of Service: February 18, 2024
reports overall feeling well. Left thumb pain improved but remains present, stiff.
Objective Data
-
Labs:
Laboratory Results
02/18/24
05:06
WBC 6.4
Hgb 7.5 L
Hct 23.9 L
Plt Count 191
Sodium 134 L
Potassium 3.3 L
Chloride 100
Carbon Dioxide 26
BUN 32 H
Creatinine 3.4 H
Glucose 71
Calcium 7.6 L
Vital Signs:
Vital Signs
Temp Pulse Resp BP Pulse Ox
97.8 F 76 16 118/48 98
02/17/24 23:10 02/17/24 23:10 02/17/24 23:10 02/17/24 23:10 02/17/24 23:10
I&O
02/17/24 02/18/24 02/19/24
06:59 06:59 06:59
Intake Total 960 / 960 1140 / 1140
Balance 960 / 960 1140 / 1140
[2024-02-18 08:38] LABS: Glucose - Point of Care 87 mg/dl (70-99)
[2024-02-18] MEDS: RETACRIT 8000 UNITS IV (08:39)
--- NOTE | 2024-02-18 09:28 | CM ---
CM following for d/c planning
Spoke with Jhoana in admissions at the [facility] [phone]
Per Jhoana, documents received. Waiting on HD acceptance. Will notify CM when HD responds
Spoke with pts daughter Hazel [phone]
Updated daughter of plan - [facility]. Daughter agreed to facility
CM will update daughter and pt after determination by the [facility]
Will need auth
Plan -SNF, possibly the [facility], waiting on HD acceptance. Will need auth
[2024-02-18] MEDS: NOVOLOG FLEXPEN-LOW RESISTANCE SC ×2 (09:43→12:23)
--- NOTE | 2024-02-18 11:31 | W.PN.NEPH.HD ---
Assessment
-
pt seen during HD
vitals stable with midodrine
on prednisone for left hand arthritis which seem to improve
high k bath for persistent hypokalemia-will add po kcl daily
CVC function well
pending placement possibly [facility]
Progress Note - Hemodialysis
-
Date of Service: February 18, 2024
Duration: 30 minutes and 3 hours
Potassium Bath: 4
Calcium Bath: 2.5
Opti-Dialyzer: 200
Ultrafiltration: Other (0.5-1kg)
Blood Flow: 400
Dialysate Flow: 600
Heparin: no
EPO: 8000
[2024-02-18 11:50] LABS: Glucose - Point of Care 62 mg/dl (70-99)
[2024-02-18 12:12] LABS: Glucose - Point of Care 62 mg/dl (70-99)
[2024-02-18] MEDS: VITAMIN C 500 MG PO ×2 (12:20→20:08)
[2024-02-18] MEDS: NEPHROCAP 1 CAPSULE PO (12:20)
[2024-02-18] MEDS: HYDROPHOR 1 APPLIC TOPICAL (12:21)
[2024-02-18] MEDS: DELTASONE 40 MG PO (12:22)
[2024-02-18] MEDS: BENADRYL IV (12:23)
[2024-02-18] MEDS: KCL 20 MEQ PO (12:35)
[2024-02-18 13:29] LABS: Glucose - Point of Care 108 mg/dl (70-99)
[2024-02-18 13:50] VITALS: BP 100/60; BP 88/44; PULSE 98
[2024-02-18 15:00] VITALS: BP 105/44
[2024-02-18 16:49] LABS: Glucose - Point of Care 210 mg/dl (70-99)
[2024-02-18] MEDS: NOVOLOG FLEXPEN-LOW RESISTANCE 2 UNITS SC (16:53)
[2024-02-18] MEDS: LOMOTIL 2 TABLET PO ×3 (17:01→23:33)
[2024-02-18 21:27] LABS: Glucose - Point of Care 305 mg/dl (70-99)
[2024-02-18] MEDS: ATIVAN 0.5 MG PO (21:46)
[2024-02-18] MEDS: LANTUS 0.119999999999999996 UNITS SC (21:46)
[2024-02-18 23:53] VITALS: BP 105/47
[2024-02-19 03:12] LABS: Glucose - Point of Care 268 mg/dl (70-99)
[2024-02-19] MEDS: LOMOTIL 2 TABLET PO ×3 (05:28→20:39)
[2024-02-19 06:00] VITALS: BMI 28.2
[2024-02-19 06:38] LABS: Hematocrit 25.8 % (37.0-47.0); Hemoglobin 8.1 g/dL (12.0-16.0); Mean Corp Hgb Conc. 31.4 g/dL (33.0-37.0); Mean Corpuscular Volume 79.6 fL (81.0-99.0); Mean Platelet Volume 8.9 fL (7.4-10.4); Platelet Count 194 10^3/uL (130-400); Red Blood Cell Count 3.24 10^6/uL (4.20-5.40); Red Cell Dist. Width 17.4 % (11.5-14.5); White Blood Cell Count 4.9 10^3/uL (4.8-10.8)
[2024-02-19 07:00] VITALS: BP 111/46
[2024-02-19 07:02] LABS: Blood Urea Nitrogen 26 mg/dl (7-17); Carbon Dioxide 26 mmol/L (22-30); Chloride 103 mmol/L (98-107); Estimated Creatinine Clearance 20 ml/min; Glucose 231 mg/dl (70-99); Potassium 4.3 mmol/L (3.5-5.1); Sodium 134 mmol/L (135-145)
[2024-02-19] MEDS: HYDROPHOR 1 APPLIC TOPICAL (08:06)
[2024-02-19] MEDS: KCL 20 MEQ PO (08:06)
[2024-02-19] MEDS: VITAMIN C 500 MG PO ×2 (08:06→20:39)
[2024-02-19] MEDS: NEPHROCAP 1 CAPSULE PO (08:06)
[2024-02-19] MEDS: DELTASONE 30 MG PO (08:06)
[2024-02-19] MEDS: NOVOLOG FLEXPEN-LOW RESISTANCE 2 UNITS SC (08:11)
[2024-02-19 08:12] LABS: Glucose - Point of Care 234 mg/dl (70-99)
--- NOTE | 2024-02-19 09:09 | CM ---
WILNER called the [facility] [phone]
Spoke with Saul in admissions - waiting on HD acceptance. Will return call when they have acceptance
Will need auth
[2024-02-19 13:06] VITALS: BP 115/53; PULSE 75; O2SAT 100
[2024-02-19 13:06] LABS: Glucose - Point of Care 343 mg/dl (70-99)
--- NOTE | 2024-02-19 13:14 | W.PN.HOSP.TC ---
Today's Communication/Plan
-
await placement
Assessment / Plan
Assessment / Plan
Assessment:
L thumb pain/redness/swelling
- possible gout - uric acid normal
- s/p Decadron with dramatic improvement, pain improved but not resolved, remains stiff, prednisone taper resumed
- XR negative
Microcytic anemia
- can be seen in aluminium toxicity (iron resistant)
- no clear evidence of blood loss
- Hb 8.1. Has received 3 units PRBCs this admission
- monitor for additional transfusion needs
- notified by [employer] via letter that patients 02/05 PRBC unit - the donor tubing was not clamped during discontinuation of donation, increasing susceptibility to contamination, low risk. Given 1 week since this transfusion occurred, without any
signs of sepsis/bacteremia/fever, suspect risk remains low. Patient is aware and letter placed in paper chart. Pathology/Blood bank notified that patient was made aware.
Hx of colon cancer status post colon resection
- Jul 2023, nodes neg, tumor through colon wall, chemo through [facility]
Chronic diarrhea possibly due to short gut/ malabsorption
- continue Lomotil
- octreotide held by pharmacy
ESRD on HD M//
- Nephrology eval appreciated
- as per Dr. Aviles: 'Dialysis dependent acute kidney injury following chemotherapy for colon cancer (since 10/02)'
- prn Midodrine
symptomatic Aluminum toxicity neuropathy
- unclear etiology; per OP Employee'S Representative (Dr. Fields; [phone]), not related to HD center water supply. patient not on aluminum based binders
- Aluminum level 148 (drawn 02/03); repeat ordered
- multiple discussions with Nephrology, Dr. Fields, and [facility]
- [facility] recommends treatment with Deferoxamine + daily HD; they declined transfer as they felt this can be managed at any hospital
- currently plan is to pursue a new SNF with HD - [facility] possibly.
Stage 2 sacral pressure injury - POA
- wound care service following
Hypotension in the setting of dialysis, chronic diarrhea
- negative cultures
- continue midodrine
Upper/lower extremity muscle weakness most likely due to aluminum toxicity, also hypokalemia K3.3-->3.1
- replete K+ directed by Nephrology
- CT head no acute abnormality
- PT/OT for rehab placement
Type 2 diabetes
- continue Lantus 12 units
- SSI
- A1c: 6.3%
Anxiety
- continue lorazepam
Hyponatremia
DVT ppx: SCDs
Code: Full
Anticipated Discharge: 24 - 48 hours
Subjective/Interval History
-
Date of Service: February 19, 2024
Objective Data
-
Labs:
Laboratory Results
02/19/24
06:03
WBC 4.9
Hgb 8.1 L
Hct 25.8 L
Plt Count 194
Sodium 134 L
Potassium 4.3 D
Chloride 103
Carbon Dioxide 26
BUN 26 H
Creatinine 2.4 H
Glucose 231 H
Calcium 8.0 L
Vital Signs:
Vital Signs
Temp Pulse Resp BP Pulse Ox
97.8 F 71 16 111/46 100
02/19/24 07:00 02/19/24 07:00 02/19/24 07:00 02/19/24 07:00 02/19/24 07:00
I&O
02/18/24 02/19/24 02/20/24
06:59 06:59 06:59
Intake Total 1140 / 1140 360 / 360
Balance 1140 / 1140 360 / 360
Data Reviewed
-
Total Time Spent with Patient (in minutes): 41
Labs: Labs Reviewed by me
[2024-02-19] MEDS: LOMOTIL PO ×3 (13:32→23:38)
[2024-02-19] MEDS: NOVOLOG FLEXPEN-LOW RESISTANCE 4 UNITS SC ×2 (13:33→16:42)
--- NOTE | 2024-02-19 14:23 | CM ---
Addendum entered by Elizabeth Leon 02/19/24 15:15:
Updated pt regarding transfer to the [facility] when auth obtained. LM on daughter VM to update regarding plan
Original Note:
Admissions at the [facility] can accept pt
Given NPI #'s for MD/facility
called [facility] [phone], spoke with [place]
Pend ref # [id number]
Faxed clinicals to Intake at [phone]
Plan - transfer to the [facility] - auth pending
[2024-02-19 15:00] VITALS: BP 120/55
[2024-02-19 16:43] LABS: Glucose - Point of Care 302 mg/dl (70-99)
--- NOTE | 2024-02-19 18:39 | W.PN.NEPH.PH ---
Today's Communication / Plan
-
HD tomorrow
Assessment/Plan
-
Impression:
Weakness
Hypokalemia
Dialysis dependent acute kidney injury following chemotherapy for colon cancer (since 10/02)
Left IJ hemodialysis cath
Right anterior chest wall Mediport
Chronic diarrhea
Suspected aluminum toxicity
History of colon cancer with colostomy and reversal in August 2023
Diabetes
Ongoing hypotension on midodrine support
Anemia
Sacral wound
Upper/lower extremity muscle weakness possibly due to aluminum toxicity
Anxiety
Plan:
HD tomorrow
after long discussion 02/12 about SE profile of Deferoxamine pt decided not to take it
she will need surveillance Aluminium levels as out pt, pending level 02/17
should cont high flux membrane
-Maintain midodrine with HD for chronic hypotension
-MAGDIEL for anemia, follow h/h
K better on daily kcl , change k bath to 3k
steroids for arthritic pain
d/c plan noted to [facility] schedule
-
-
Date of Service: February 19, 2024
CC / HPI / ROS
-
Chief Complaint:
ESRD
History of Present Illness:
BP low but stable
tolerated HD yesterday
anemia improving to 8.1
Review of Systems:
no CP/SOB
left thumb pain resolving
Labs
-
Labs:
WBC 4.9 10^3/uL (4.8-10.8) 02/19/24 06:03
RBC 3.24 10^6/uL (4.20-5.40) L 02/19/24 06:03
Hgb 8.1 g/dL (12.0-16.0) L 02/19/24 06:03
Hct 25.8 % (37.0-47.0) L 02/19/24 06:03
Plt Count 194 10^3/uL (130-400) 02/19/24 06:03
Sodium 134 mmol/L (135-145) L 02/19/24 06:03
Potassium 4.3 mmol/L (3.5-5.1) D 02/19/24 06:03
Chloride 103 mmol/L (98-107) 02/19/24 06:03
Carbon Dioxide 26 mmol/L (22-30) 02/19/24 06:03
BUN 26 mg/dl (7-17) H 02/19/24 06:03
Creatinine 2.4 mg/dL (0.6-1.0) H 02/19/24 06:03
eGFR 20.80 02/19/24 06:03
Glucose 231 mg/dl (70-99) H 02/19/24 06:03
Calcium 8.0 mg/dl (8.4-10.2) L 02/19/24 06:03
Albumin 2.1 g/dl (3.5-5.0) L 02/05/24 04:22
Physical Exam
-
Vital Signs:
Vital Signs
Temp Pulse Resp BP Pulse Ox
98.6 F 77 17 120/55 98
02/19/24 15:00 02/19/24 15:00 02/19/24 15:00 02/19/24 15:00 02/19/24 15:00
Cardiovascular:: Regular rate and rhythm
Respiratory:: Bilateral: CTA
Lung Excursion:: Normal
Abdomen:: Nontender and Soft
Extremity Edema:: None: Bilateral:
Hopson Catheter: No
[2024-02-19 21:59] LABS: Glucose - Point of Care 277 mg/dl (70-99)
[2024-02-19] MEDS: ATIVAN 0.5 MG PO (22:09)
[2024-02-19] MEDS: LANTUS 0.119999999999999996 UNITS SC (22:09)
[2024-02-19 23:48] VITALS: BP 94/55
[2024-02-20] MEDS: LOMOTIL PO ×3 (04:06→11:37)
[2024-02-20 05:25] VITALS: BP 119/58
[2024-02-20 06:00] VITALS: BMI 29.1
[2024-02-20 07:00] VITALS: BP 122/58
[2024-02-20] MEDS: VITAMIN C 500 MG PO (07:28)
[2024-02-20] MEDS: HYDROPHOR 1 APPLIC TOPICAL (07:28)
[2024-02-20] MEDS: KCL 20 MEQ PO (07:28)
[2024-02-20] MEDS: NEPHROCAP 1 CAPSULE PO (07:28)
[2024-02-20] MEDS: NOVOLOG FLEXPEN-LOW RESISTANCE 2 UNITS SC ×2 (07:28→12:21)
[2024-02-20] MEDS: DELTASONE 30 MG PO (07:28)
[2024-02-20 07:29] LABS: Glucose - Point of Care 230 mg/dl (70-99)
[2024-02-20 08:44] LABS: Hematocrit 26.4 % (37.0-47.0); Hemoglobin 7.9 g/dL (12.0-16.0); Mean Corp Hgb Conc. 29.9 g/dL (33.0-37.0); Mean Corpuscular Hgb 24.8 pg (27.0-31.0); Mean Corpuscular Volume 82.8 fL (81.0-99.0); Mean Platelet Volume 9.1 fL (7.4-10.4); Platelet Count 255 10^3/uL (130-400); Red Blood Cell Count 3.19 10^6/uL (4.20-5.40); Red Cell Dist. Width 17.7 % (11.5-14.5); White Blood Cell Count 7.8 10^3/uL (4.8-10.8)
[2024-02-20] MEDS: RETACRIT 10000 UNITS IV (09:00)
[2024-02-20] MEDS: ProAmatine 5 MG PO (09:39)
[2024-02-20 09:57] LABS: Blood Urea Nitrogen 40 mg/dl (7-17); Calcium 8.9 mg/dl (8.4-10.2); Carbon Dioxide 22 mmol/L (22-30); Chloride 100 mmol/L (98-107); Estimated Creatinine Clearance 16 ml/min; Glucose 186 mg/dl (70-99); Sodium 135 mmol/L (135-145)
--- NOTE | 2024-02-20 10:47 | W.PN.HOSP.TC ---
Today's Communication/Plan
-
dc to SNF
Assessment / Plan
Assessment / Plan
Assessment:
L thumb pain/redness/swelling
- possible gout - uric acid normal
- s/p Decadron with dramatic improvement; dc on quick steroid taper
- XR negative
Microcytic anemia
- can be seen in aluminium toxicity (iron resistant)
- no clear evidence of blood loss
- Hb 7.9. Has received 3 units PRBCs this admission
- monitor for additional transfusion needs
- notified by [employer] via letter that patients 02/05 PRBC unit - the donor tubing was not clamped during discontinuation of donation, increasing susceptibility to contamination, low risk. Given 1 week since this transfusion occurred, without any
signs of sepsis/bacteremia/fever, suspect risk remains low. Patient is aware and letter placed in paper chart. Pathology/Blood bank notified that patient was made aware.
Hx of colon cancer status post colon resection
- Jul 2023, nodes neg, tumor through colon wall, chemo through [facility]
Chronic diarrhea possibly due to short gut/ malabsorption
- continue Lomotil
- octreotide held by pharmacy
ESRD on HD M//
- Nephrology eval appreciated
- as per Dr. Aviles: 'Dialysis dependent acute kidney injury following chemotherapy for colon cancer (since 10/02)'
- prn Midodrine
symptomatic Aluminum toxicity neuropathy
- unclear etiology; per OP Driver Education Instructor (Dr. Fields; [phone]), not related to HD center water supply. patient not on aluminum based binders
- Aluminum level 148 (drawn 02/03); repeat ordered
- multiple discussions with Nephrology, Dr. Fields, and [place] [facility]
- [place] recommends treatment with Deferoxamine + daily HD; they declined transfer as they felt this can be managed at any hospital
- patient refused Deferoxamine
- Currently treating with HD with hi flux filter/membrane
- currently plan is to pursue a new SNF with HD - [facility] today
Stage 2 sacral pressure injury - POA
- wound care service following
Hypotension in the setting of dialysis, chronic diarrhea
- negative cultures
- continue midodrine
Upper/lower extremity muscle weakness most likely due to aluminum toxicity, also hypokalemia K3.3-->3.1
- replete K+ directed by Nephrology
- CT head no acute abnormality
- PT/OT for rehab placement
Type 2 diabetes
- continue Lantus 12 units
- SSI
- A1c: 6.3%
Anxiety
- continue lorazepam
Hyponatremia
DVT ppx: SCDs
Code: Full
More than 30 minutes spent in discharge including
Final examination of the patient
Summarizing hospital stay
Instructions for continuing care to all relevant caregivers
Preparation of discharge records, prescriptions, and referral forms
Total time spent (in minutes): 42
Anticipated Discharge: Today
Subjective/Interval History
-
Date of Service: February 20, 2024
on HD, no complaints
for DC today
Objective Data
-
Labs:
Laboratory Results
02/20/24
07:23
WBC 7.8
Hgb 7.9 L
Hct 26.4 L
Plt Count 255 D
Sodium 135
Potassium 4.0
Chloride 100
Carbon Dioxide 22
BUN 40 H
Creatinine 3.1 H
Glucose 186 H
Calcium 8.9
Vital Signs:
Vital Signs
Temp Pulse Resp BP Pulse Ox
98.4 F 72 16 133/59 98
02/20/24 07:00 02/20/24 09:39 02/20/24 07:00 02/20/24 09:39 02/20/24 07:00
I&O
02/19/24 02/20/24 02/21/24
06:59 06:59 06:59
Intake Total 360 / 360 840 / 840
Balance 360 / 360 840 / 840
Physical Exam
-
General: No Apparent Distress
HEENT: Normocephalic and Atraumatic
Respiratory: Negative Wheezes or Rales
Cardiac: Regular Rhythm and S1/S2
GI: Soft and Nontender
Genito-urinary: No Costovertebral Tender
Neuro: AO x 3
Psych: Calm
Data Reviewed
-
Total Time Spent with Patient (in minutes): 42
Labs: Labs Reviewed by me
--- NOTE | 2024-02-20 10:53 | W.DS.TRANS ---
DC Summary - [facility]
-
Discharge Instructions:
Discharge Diagnosis/Procedures Aluminum toxicity with neuropathy/weakness and
anemia. Also L thumb gout attack
Diet Restrict fluids to 48 oz,Regular
Activity As tolerated
Bathing Restrictions None
Other Services PT,OT
Instructions:
Stand-Alone Forms:
Changes to Home Medications: No
Discharge Medications:
DC Medications w/original date entered in [facility]
acetaminophen 325 mg tablet 650 mg PO Q6H PRN mild pain 02/04/24
albuterol sulfate 2.5 mg/3 mL (0.083 %) solution for nebulization 2.5 mg inhalation R Q6 PRN sob/wheezing 02/04/24
ascorbic acid (vitamin C) 500 mg tablet 500 mg PO BID Supplement 02/04/24
diphenhydramine HCl 50 mg/mL injection solution 25 mg IV [id number] Allergies 02/04/24
diphenoxylate-atropine 2.5 mg-0.025 mg tablet 2 tab PO Q4H DIARRHEA 02/04/24
insulin glargine 100 unit/mL (3 mL) subcutaneous pen (Lantus Solostar U-100 Insulin) 12 unit SC HS Diabetes 02/04/24
insulin lispro 100 unit/mL subcutaneous pen (Humalog KwikPen (U-100) Insulin) 1 - 5 sliding scale dose SC QID Diabetes 02/04/24
midodrine 5 mg tablet 5 mg PO Q8H PRN hypotention on dialysis days 02/04/24
octreotide acetate 500 mcg/mL (1 mL) injection syringe 500 mcg SC TID DIARRHEA 02/04/24
ondansetron HCl 8 mg tablet 8 mg PO Q8H PRN nausea/vomiting 02/04/24
prochlorperazine maleate 10 mg tablet 10 mg PO Q6H PRN nausea/vomiting 02/04/24
vitamin B complex and vitamin C no.20-folic acid 1 mg capsule (Triphrocaps) 1 cap PO DAILY Supplement 02/04/24
lorazepam 0.5 mg tablet 0.5 mg PO HS ANXIETY #5 tabs 02/20/24
potassium chloride 20 mEq tablet,extended release(part/cryst) 20 meq PO DAILY #30 tabs 02/20/24
prednisone 10 mg tablet 10 mg PO DIRECTED #6 tabs 02/20/24
tramadol 50 mg tablet 50 mg PO Q6H PRN moderate pain #10 tabs 02/20/24
Home Medication Changes
Pending Results: No
Total time spent discharging patient (in min): 42
--- NOTE | 2024-02-20 11:11 | CM ---
Case Management following for d/c planning
Received call from [facility] at the [facility] - they received auth
Requesting transport @ 4PM
Dr Mo made aware
Spoke with pt - receiving HD
Discussed Imm and aware to be transferred to the [facility]
Plan - transfer to the [facility]
[2024-02-20] MEDS: BENADRYL IV (11:37)
[2024-02-20 11:53] LABS: Glucose - Point of Care 201 mg/dl (70-99)
--- NOTE | 2024-02-20 13:07 | W.PN.NEPH.HD ---
Assessment
-
- planning for discharge today
- aluminum level pending from 02/17
Progress Note - Hemodialysis
-
Date of Service: February 20, 2024
Duration: 30 minutes and 3 hours
Potassium Bath: 3
Calcium Bath: 2.5
Opti-Dialyzer: 160
Ultrafiltration: Other
Blood Flow: 400
Dialysate Flow: 600
EPO: 10K
[2024-02-20 15:00] VITALS: BP 118/47
[2024-02-20] MEDS: LOMOTIL 2 TABLET PO (16:51)
[2024-02-20] MEDS: NOVOLOG FLEXPEN-LOW RESISTANCE SC (16:53)
== END 2024-02-20 17:26 | DRG 917 ==
LOC: 3 WEST ACU 20:37
PROVIDERS: Internal Medicine; Physician Assistant Medical; Specialist; Student in an Organized Health Care Education/Training Program; ADMITTING PHYSICIAN Hospitalist; ATTENDING PHYSICIAN Internal Medicine; CONSULT PHYSICIAN Specialist; EMERGENCY PHYSICIAN Emergency Medicine; FAMILY PHYSICIAN Nurse Practitioner Family
PROC: 30243N1 Transfusion of Nonautologous Red Blood Cells into Central Vein, Percutaneous Approach (ICD-10-PCS; 2024-02-04)
PROC: 5A1D70Z Performance of Urinary Filtration, Intermittent, Less than 6 Hours Per Day (ICD-10-PCS; 2024-02-06)
DX: T56.91XA Toxic effect of unspecified metal, accidental (unintentional), initial encounter (principal); N18.6 End stage renal disease; N17.9 Acute kidney failure, unspecified; E44.0 Moderate protein-calorie malnutrition; K91.2 Postsurgical malabsorption, not elsewhere classified; E87.1 Hypo-osmolality and hyponatremia; R53.1 Weakness; E86.0 Dehydration; I95.89 Other hypotension; D50.9 Iron deficiency anemia, unspecified; E87.6 Hypokalemia; M10.9 Gout, unspecified; F41.9 Anxiety disorder, unspecified; E11.22 Type 2 diabetes mellitus with diabetic chronic kidney disease; Y83.2 Surgical operation with anastomosis, bypass or graft as the cause of abnormal reaction of the patient, or of later complication, without mention of misadventure at the time of the procedure; M19.042 Primary osteoarthritis, left hand; E11.40 Type 2 diabetes mellitus with diabetic neuropathy, unspecified; L89.152 Pressure ulcer of sacral region, stage 2; Z85.038 Personal history of other malignant neoplasm of large intestine; Z92.21 Personal history of antineoplastic chemotherapy; Z79.4 Long term (current) use of insulin; Z91.048 Other nonmedicinal substance allergy status; Z88.1 Allergy status to other antibiotic agents; Z99.2 Dependence on renal dialysis; Z68.29 Body mass index [BMI] 29.0-29.9, adult
CPT/HCPCS: 36430; 70450; 71046; 73120; 80048; 80051; 80053; 82108; 82550; 82607; 82728; 82746; 82962; 83036; 83540; 83550; 83605; 84550; 85014; 85018; 85025; 85027; 85610; 85730; 86704; 86705; 86706; 86708; 86709; 86803; 86850; 86900; 86901; 86920; 87040; 87070; 87340; 93005; 96360; 97112; 97116; 97163; 97167; 97530; 97535; 99285; G0257; J2997; P9016; P9047; Q5106

== ENCOUNTER → 2024-07-29 14:05 | Outpatient (REF) | payer MEDICARE, SELFPAY | LOC: RAD 14:05 | PROVIDERS: ATTENDING PHYSICIAN Surgery Vascular Surgery; FAMILY PHYSICIAN Nurse Practitioner Family; REFERRING PHYSICIAN Specialist | DX: N18.6 End stage renal disease (principal); Z99.2 Dependence on renal dialysis; Z01.818 Encounter for other preprocedural examination | CPT/HCPCS: 93985 ==

== ENCOUNTER 2024-08-05 08:12 | Day surgery (SDC) | payer MEDICARE, SELFPAY ==
[2024-08-05] VITALS (12 sets, daily range): BP systolic 102–131; BP diastolic 42–63; BMI 30.6
--- NOTE | 2024-08-05 08:18 | HP.FOC2 ---
Focused History & Physical
Chief Complaint
HPI:
Chief Complaint: End-stage renal disease
HPI / Indication for Planned Procedure: 73-year-old female here today for a left possible right upper extremity AV fistula creation, possible graft with Dr. White. Patient has a right sided port and a left sided tunneled catheter.
Relevant Past Medical History: Other (Colon cancer post tumor removal, diabetes, anxiety)
Relevant Social History: Negative
Relevant Family History: Negative
Relevant Past Surgical History: Positive for (Tumor removal)
Review of Systems
Review of Pertinent Systems: All Systems Negative
Medication
See Medication form for detailed medications: Yes
Medication List (including Herbals & OTC):
acetaminophen 325 mg tablet 650 mg PO Q6H PRN mild pain 02/04/24
ascorbic acid (vitamin C) 500 mg tablet 500 mg PO BID Supplement 02/04/24
insulin glargine 100 unit/mL (3 mL) subcutaneous pen (Lantus Solostar U-100 Insulin) 7 unit SC HS Diabetes 02/04/24
insulin lispro 100 unit/mL subcutaneous pen (Humalog KwikPen (U-100) Insulin) 3 unit SC ACHS PRN BS > 120am, >100 rest of day 02/04/24
midodrine 5 mg tablet 5 mg PO BID PRN hypotension on HD days 02/04/24
potassium chloride 20 mEq tablet,extended release(part/cryst) 20 meq PO DAILY #30 tabs 02/20/24
vitamin B complex 1 cap PO DAILY 08/04/24
Medications Reviewed: Yes
Allergies and Reactions
Patient has Allergies: Yes
Noted Allergies and Reactions:
Allergy/AdvReac Type Severity Reaction Status Date / Time
adhesive Allergy SKIN Verified 08/04/24 16:07
IRRITATION
azithromycin Allergy Shortness Verified 08/04/24 15:48
of Breath
latex Allergy Rash Verified 08/04/24 16:07
nickel Allergy severe Verified 08/04/24 15:48
infection,
rash
Pertinent Physical Exam
All Other Systems: Negative
Head/Neck: Normal
Extremities: Normal
Diagnosis / Assessment
End-stage renal disease newly on HD
Plan / Procedure
Planned left possible right upper extremity AV fistula creation, possible graft with Dr. White
Anesthesia/Sedation to be done by Anesthesia Provider: Yes
[2024-08-05 08:57] LABS: Hemoglobin 11.2 g/dL (12.0-16.0); Mean Corp Hgb Conc. 33.9 g/dL (33.0-37.0); Mean Corpuscular Hgb 31.9 pg (27.0-31.0); Mean Platelet Volume 8.9 fL (7.4-10.4); Platelet Count 229 10^3/uL (130-400); Red Blood Cell Count 3.51 10^6/uL (4.20-5.40); Red Cell Dist. Width 13.4 % (11.5-14.5); White Blood Cell Count 6.3 10^3/uL (4.8-10.8)
[2024-08-05] MEDS: NSS 500 IV (08:58)
[2024-08-05] MEDS: PERIDEX 0.12% ORAL RINSE 15 ML PO (08:58)
[2024-08-05] MEDS: BACTROBAN NASAL 1 GRAM NASAL (08:58)
[2024-08-05 09:01] LABS: Glucose - Point of Care 114 mg/dl (70-99)
[2024-08-05 09:06] LABS: INR 1.03; PT 13.6 Sec (11.4-14.6)
[2024-08-05 09:07] LABS: APTT 26.4 Sec (23.4-35.0)
[2024-08-05 09:08] LABS: Blood Urea Nitrogen 63 mg/dl (7-17); Calcium 9.6 mg/dl (8.4-10.2); Carbon Dioxide 27 mmol/L (22-30); Chloride 97 mmol/L (98-107); Estimated Creatinine Clearance 23 ml/min; Glucose 111 mg/dl (70-99); Potassium 3.5 mmol/L (3.5-5.1); Sodium 138 mmol/L (135-145); eGFR 24.42
--- NOTE | 2024-08-05 09:54 | W.SUR.PREOP ---
Pre-Operative Surgical Note
-
I have examined this patient prior to the performance of the scheduled procedure.
The patient's condition is unchanged from the time of the current History and
Physical and the patient is able to undergo the scheduled procedure.
--- NOTE | 2024-08-05 10:07 | W.PN.UPDATE ---
Addendum entered and electronically signed by Gilmer White MD 08/05/24 11:29:
PLEASE DIREGARD NOTE BELOW - WRONG PATIENT ENTRY.
Original Note:
Update Note
Progress Note Update
Seen and evaluated emergently as per the request of resident from primary team. Seen and evaluated with ENGINEERING PROGRAMMER Gus and ADOLFO Stubbs (full consultation to follow). Patient non-Ivorian speaking, her son interpreting at the bedside (Jeremy). Offered but
declined bumper machine operator services.
There was a concern for compartment syndrome of the upper extremity. Patient was evaluated at [facility] and found to have bilateral lower extremity DVTs while on anticoagulation for atrial fibrillation. (Xarelto). Due to the fact
that they felt it was a failure of Xarelto, she was started on Lovenox. Per report the Lovenox was injected into the left upper arm. Patient has had worsening pain in the left upper arm and swelling over the last few days. To the point that she
cannot sleep. She denies any weakness in the hand, though she notes that her forearm and hand are slightly swollen and that creates a little bit of tightness when she moves. No overt weakness. No numbness. Just pain.
Extensive cardiac history as noted in full history.
On exam her left upper extremity in the upper arm medially has a fullness/hematoma. She is moderately tender there. The compartment is compressible. Not severely tense. Echymosis , but no skin blistering. Left forearm and hand are soft.
Palpable left radial pulse. Motor and sensory function in the left arm and hand seems relatively normal.
Plan/ 1) Hematoma LUE -- discussed with patient and her son. Discussed that she has a moderate-sized hematoma, I reviewed the CT scan as well. She does not have an overt compartment syndrome, but she has significant pain. No skin changes or neuro
vascular compression. However because of significant pain and discomfort, am recommending evacuation of the hematoma. Discussed with her procedure. Discussed alternatives of conservative management. Discussed risks including but not limited to
bleeding, infection, need for recurrent hematoma evacuation and recurrent hematoma. She understands all wishes to proceed. Plan urgent OR today.
2) B/l LE DVT while on anticoag - consider hematology eval and IVC filter placement for failure while on therapeutic anticoag.
--- NOTE | 2024-08-05 11:26 | W.SUR.POST ---
Surgical Immediate Post Op
Note
Pre Op Diagnosis: ESRD
Post Op Diagnosis: ESRD
Procedure Performed: Left upper extremity brachiocephalic AVF creation
Primary Surgeon: Gilmer hWite MD
Atomic Physics Professor: JASSON Maria
Anesthesia: GETA
Estimated Blood Loss: 5 ml
Fluids: See flowsheet
Drains/Shunts: N/A
Specimens/Cultures: none
Doppler/Duplex/Angio (Y/N): Y
Complications: none
Operative Findings: +thrill post creation
--- NOTE | 2024-08-05 11:34 | OR.RPT ---
Operative Report
Operative Report
PROCEDURE DATE: 08/05/2024
Preoperative diagnosis: End-stage renal disease on hemodialysis
Postoperative diagnosis: Same
Procedure: Left upper extremity brachiocephalic arteriovenous fistula creation
Surgeon: Christopher
Drum Cleaner: Gus, required for all aspects of procedure including assistance with traction/countertraction, following a suture line, assistance with closure.
Complications: None
Anesthesia: General
Indications for procedure:
End-stage renal disease on hemodialysis. Risk/benefits/alternatives of arteriovenous fistula/graft creation all discussed. Patient understood all wished to proceed.
Description of procedure:
Patient was identified brought to the operating room placed on the table in supine position. After induction of anesthesia, I mapped the left upper extremity veins, and noted suitable left upper arm cephalic vein (and basilic vein also). Therefore
elected to proceed with left upper arm brachiocephalic arteriovenous fistula creation.
After the adequate administration of anesthesia and perioperative antibiotics she was prepped and draped in the standard surgical fashion. A standard preoperative timeout was undertaken and everybody was in agreement the plan. A transverse
incision was made in the proximal volar aspect of the forearm just distal to the antecubital fossa. This was carried through skin subcutaneous tissue. The antecubital extension of the cephalic vein was identified and carefully dissected away from
surrounding structures and great care to avoid any injury to structures. Any branches were ligated between silk ties and then divided. Note, I did dissect slightly centrally/cephalad and identify the confluence of this antecubital extension of
the cephalic vein with the main cephalic vein towards the forearm and was able to ligate that branch between silk ties and divided as well to allow further mobilization. As such I was able to mobilize a suitable length of cephalic vein. Once I had
done this I then deepened my dissection in the medial aspect of the incision site through the fascial layer. The brachial artery was carefully identified and carefully dissected away from surrounding structures take great care to avoid injury to
structures. I passed a vessel loop around proximally and distally. Next I gave the patient 3000 units of intravenous heparin. I then ligated the cephalic vein distally in my field with a silk tie and a clip. I then transected it. I distended
under heparinized saline. It distended very well. I marked the anterior surface under distention to avoid any kinking or twisting. The vein was suitable size but just to be sure I ran a 2, 2.5, 3, 3.5 mm dilators, which all passed through without
any difficulty whatsoever. Next I tightened my doubly looped Vesseloops on the artery proximally and distally. I then made an arteriotomy with 11 blade and extended it using a Soto scissor. I spatulated the cephalic vein and sewed an end to side
anastomosis using a running 6-0 Prolene suture. Prior to completing and tying down my suture line I backbled and forebled the [place] artery. Next I released my bulldog clamp on the vein and then released my Vesseloops on the artery. There was an
excellent thrill in the fistula. There was an excellent Doppler signal at the wrist at the radial artery. At this point I was very satisfied. I irrigated. I achieved and confirmed full hemostasis. I confirmed the outflow vein was not tethered.
I then closed in layers using 3-0 Vicryl deep dermal layer followed by 4-0 Monocryl subcuticular stitch. Dermabond was applied. The patient tolerated the procedure well.
[2024-08-05 11:46] LABS: Glucose - Point of Care 103 mg/dl (70-99)
[2024-08-05] MEDS: SUBLIMAZE 25 MCG IV (12:22)
== END 2024-08-05 14:10 | disposition home or self-care (01) ==
LOC: CATH 08:12
PROVIDERS: ATTENDING PHYSICIAN Surgery Vascular Surgery; FAMILY PHYSICIAN Nurse Practitioner Family
DX: E11.22 Type 2 diabetes mellitus with diabetic chronic kidney disease (principal); N18.6 End stage renal disease; Z99.2 Dependence on renal dialysis; Z85.038 Personal history of other malignant neoplasm of large intestine; Z79.4 Long term (current) use of insulin
CPT/HCPCS: 36821; 80048; 82962; 85027; 85610; 85730; 86850; 86900; 86901; 93005

== ENCOUNTER → 2024-09-13 12:42 | Outpatient (REF) | payer MEDICARE, SELFPAY | LOC: RAD 12:42 | PROVIDERS: ATTENDING PHYSICIAN Physician Assistant; FAMILY PHYSICIAN Nurse Practitioner Family; OTHER PHYSICIAN Specialist; OTHER PHYSICIAN Surgery Vascular Surgery | DX: I77.0 Arteriovenous fistula, acquired (principal) | CPT/HCPCS: 93990 ==

== ENCOUNTER 2024-11-18 06:06 | Day surgery (SDC) | payer MEDICARE, SELFPAY ==
[2024-11-18] VITALS (13 sets, daily range): BP systolic 92–106; BP diastolic 34–51; BMI 31.2
[2024-11-18] MEDS: NSS 500 IV (06:50)
[2024-11-18 07:05] LABS: Glucose - Point of Care 134 mg/dl (70-99)
[2024-11-18 07:11] LABS: Hematocrit 37.3 % (37.0-47.0); Hemoglobin 12.3 g/dL (12.0-16.0); Mean Corpuscular Hgb 32.7 pg (27.0-31.0); Mean Corpuscular Volume 99.2 fL (81.0-99.0); Platelet Count 273 10^3/uL (130-400); Red Blood Cell Count 3.76 10^6/uL (4.20-5.40); Red Cell Dist. Width 13.6 % (11.5-14.5); White Blood Cell Count 7.2 10^3/uL (4.8-10.8)
--- NOTE | 2024-11-18 07:12 | HP.FOC2 ---
Focused History & Physical
Chief Complaint
HPI:
Chief Complaint: ESRD
HPI / Indication for Planned Procedure: This is a 74 year old female with ESRD who presents to [facility] for schedule left upper extremity AV fistulogram with Dr. Gilmer White. Patient endorses HD RNs have not been able to access AVF fistula
prompting recommendation for fistulogram. Patient denies recent illness, trauma, or hospitalization. She endorses she is at her baseline health.
Relevant Past Medical History: Diabetes and Other (colon cancer, anxiety, bowel obsturction )
Relevant Social History: Negative
Relevant Family History: Negative
Relevant Past Surgical History: Positive for (AV LUE creation )
Review of Systems
Review of Pertinent Systems: All Systems Negative
Medication
See Medication form for detailed medications: Yes
Medication List (including Herbals & OTC):
ascorbic acid (vitamin C) 500 mg tablet 500 mg PO BID Supplement 02/04/24
insulin glargine 100 unit/mL (3 mL) subcutaneous pen (Lantus Solostar U-100 Insulin) 6 unit SC HS Diabetes 02/04/24
insulin lispro 100 unit/mL subcutaneous pen (Humalog KwikPen (U-100) Insulin) 3 unit SC ACHS PRN BS > 123 02/04/24
midodrine 5 mg tablet 5 mg PO BID PRN hypotension on HD days 02/04/24
potassium chloride 20 mEq tablet,extended release(part/cryst) 20 meq PO DAILY #30 tabs 02/20/24
vitamin B complex 1 cap PO DAILY 08/04/24
cholecalciferol (vitamin D3) 50 mcg (2,000 unit) tablet (Vitamin D3) 75 mcg PO DAILY 11/18/24
zinc 10 mg tablet 10 mg PO DAILY 11/18/24
Medications Reviewed: Yes
Allergies and Reactions
Patient has Allergies: Yes
Noted Allergies and Reactions:
Allergy/AdvReac Type Severity Reaction Status Date / Time
adhesive Allergy SKIN Verified 11/18/24 06:34
IRRITATION
erythromycin base Allergy Shortness Verified 11/18/24 06:34
of Breath
latex Allergy Rash Verified 11/18/24 06:34
nickel Allergy Sepsis Verified 11/18/24 06:34
Pertinent Physical Exam
All Other Systems: Negative
Head/Neck: Normal
Lungs: Normal (BL lungds CTA)
Heart: Normal (RRR)
Abdomen: Normal (NTND)
Extremities: Other (LUE AVF + thrill, left radial pulse +2)
Neurological: Normal
Diagnosis / Assessment
Diagnosis ESRD
Plan / Procedure
Plan: Proceed with scheduled LUE fistulagram
Anesthesia/Sedation to be done by Anesthesia Provider: Yes
--- NOTE | 2024-11-18 07:15 | W.SUR.PREOP ---
Pre-Operative Surgical Note
-
I have examined this patient prior to the performance of the scheduled procedure.
The patient's condition is unchanged from the time of the current History and
Physical and the patient is able to undergo the scheduled procedure.
Discussed with patient recommendation for fistulogram given difficulty accessing fistula. Discussed possibility of successful angioplasty. Discussed potential for need for staged superficialization if deep (but I do not think that is the case
necessarily). Discussed risks of procedure including without limited to bleeding, thrombotic or embolic complications. She understands all wishes to proceed.
[2024-11-18 07:21] LABS: INR 1.01; PT 13.8 Sec (11.4-14.6)
[2024-11-18 07:22] LABS: APTT 28.1 Sec (23.4-35.0)
[2024-11-18 07:27] LABS: Blood Urea Nitrogen 40 mg/dl (7-17); Calcium 10.1 mg/dl (8.4-10.2); Carbon Dioxide 27 mmol/L (22-30); Chloride 95 mmol/L (98-107); Estimated Creatinine Clearance 17 ml/min; Glucose 144 mg/dl (70-99); Potassium 3.9 mmol/L (3.5-5.1); Sodium 137 mmol/L (135-145); eGFR 17.18
--- NOTE | 2024-11-18 08:13 | W.SUR.POST ---
Surgical Immediate Post Op
Note
Pre Op Diagnosis: ESRD
Post Op Diagnosis: ESRD
Procedure Performed: Left upper extremity fistulogram, balloon angioplasty of central venous stenosis
Primary Surgeon: Christopher
Anesthesia: Local and sedation
Estimated Blood Loss: Less than 2 cc
Fluids: See anesthesia flowsheet
Drains/Shunts: None
Specimens/Cultures: None
Doppler/Duplex/Angio (Y/N): Y
Complications: None
Operative Findings: + Thrill
[2024-11-18 08:28] LABS: Glucose - Point of Care 122 mg/dl (70-99)
--- NOTE | 2024-11-18 08:55 | OR.RPT ---
Operative Report
Operative Report
PROCEDURE DATE: 11/18/2024
Preoperative diagnosis:
1. End-stage renal disease on hemodialysis.
2. Poorly maturing left upper extremity AV fistula.
Postoperative diagnosis: Same
Procedure:
1. Left upper extremity fistulogram and central venogram.
2. Balloon angioplasty of outflow vein stenosis with 4 and 6 mm angioplasty balloon.
Surgeon: Christopher
Military Nurse:[]
Complications: None
Anesthesia: Local, sedation
Fluoroscopy:
2.8 min
4 mGy
1.26 Gy.cm2
Indications for procedure:
End-stage renal disease on hemodialysis. Status post left brachiocephalic AV fistula creation. Not maturing as well and difficulty with access. Therefore brought for fistulogram. Risk/benefit/alternatives also discussed. Patient understood and
wished to proceed.
Description of procedure:
Patient was identified, brought to the operating room. Placed on the table in the supine position. After the adequate administration of anesthesia, the patient was prepped and draped in the standard surgical fashion. A standard preoperative
timeout was undertaken and everybody was in agreement with the plan.
The left upper extremity cephalic outflow vein of the AV fistula was punctured in the mid to proximal upper arm when a peripheral facing direction under direct duplex ultrasound guidance with a micropuncture kit. A 5 Slovenian sheath was then advanced
over a 0.035 inch wire. Fistulogram was obtained. This demonstrated a patent outflow vein of the AV fistula. The anastomosis appeared nicely patent. About a centimeter to 1.5 cm beyond the anastomosis, there was an area of severe stenosis with
irregularity of the vein lumen. Beyond there the vein had began maturing and was somewhat dilated through the rest of the outflow. However just about another centimeter beyond that initial area of stenosis in the dilated segment of vein there
appeared to be a valve or luminal web. Remainder of fistulogram and central venogram demonstrated patent cephalic outflow vein and cephalic arch and central veins with no additional stenosis. The patient was now given 3017 is heparin. At this
point, under roadmap assisted guidance I used a flopping of hydrophilic wire and a glide catheter and was able to cannulate into the proximal brachial artery proximal to the anastomosis. I advance my glide catheter. I then exchanged for a Corban Direct
wire. I then performed balloon angioplasty of the stenotic area about a centimeter distal to the anastomosis using a 4 mm angioplasty balloon. I then upsized to a 6 mm angioplasty balloon to balloon in that area again and more so to encompass the
area of web intraluminally. I then exchanged out for my glide catheter again. Completion fistulogram demonstrated excellent result with resolution of the stenoses. At this point of the satisfied. Catheters and wires were withdrawn. A 4-0
Monocryl pursestring stitch was placed around the sheath entry site and this was tied down as the sheath was withdrawn. Manual pressure was also applied to the puncture site. Hemostasis was achieved. The patient tolerated the procedure well. She
had a thrill in the fistula upon completion.
--- NOTE | 2024-11-18 09:15 | SUR.PHASEI ---
in pacu post fistulagram left upper arm. small dressing intact. left arm elevated on pillow. left hand warm. radial pulse good. Bruit and thrill detected though soft in palpation and ascultation.
== END 2024-11-18 10:15 | disposition home or self-care (01) ==
LOC: CATH 06:06
PROVIDERS: ATTENDING PHYSICIAN Surgery Vascular Surgery; FAMILY PHYSICIAN Nurse Practitioner Family
DX: T82.858D Stenosis of other vascular prosthetic devices, implants and grafts, subsequent encounter (principal); Y83.2 Surgical operation with anastomosis, bypass or graft as the cause of abnormal reaction of the patient, or of later complication, without mention of misadventure at the time of the procedure; I12.0 Hypertensive chronic kidney disease with stage 5 chronic kidney disease or end stage renal disease; E11.22 Type 2 diabetes mellitus with diabetic chronic kidney disease; N18.6 End stage renal disease; Z99.2 Dependence on renal dialysis; Z79.4 Long term (current) use of insulin; Z85.038 Personal history of other malignant neoplasm of large intestine
CPT/HCPCS: 36902; 80048; 82962; 85027; 85610; 85730; 86850; 86900; 86901; C1725; C1769; C1894; Q9967

== ENCOUNTER → 2024-12-17 14:57 | Outpatient (REF) | payer MEDICARE, SELFPAY | LOC: RAD 14:57 | PROVIDERS: ATTENDING PHYSICIAN Physician Assistant; FAMILY PHYSICIAN Nurse Practitioner Family | DX: N18.6 End stage renal disease (principal) | CPT/HCPCS: 93990 ==

== ENCOUNTER → 2024-12-30 12:17 | Outpatient (REF) | payer MEDICARE, SELFPAY | LOC: RAD 12:17 | PROVIDERS: ATTENDING PHYSICIAN Surgery Vascular Surgery; FAMILY PHYSICIAN Nurse Practitioner Family | DX: T82.590D Other mechanical complication of surgically created arteriovenous fistula, subsequent encounter (principal) | CPT/HCPCS: 73206; Q9967 ==

== ENCOUNTER → 2025-01-14 13:43 | Outpatient (REF) | payer MEDICARE, SELFPAY | LOC: RAD 13:43 | PROVIDERS: ATTENDING PHYSICIAN Surgery Vascular Surgery; FAMILY PHYSICIAN Nurse Practitioner Family | DX: T82.590D Other mechanical complication of surgically created arteriovenous fistula, subsequent encounter (principal) | CPT/HCPCS: 93990 ==

== ENCOUNTER 2025-04-07 06:12 | Day surgery (SDC) | payer MEDICARE, SELFPAY ==
[2025-04-07] VITALS (19 sets, daily range): BP systolic 85–100; BP diastolic 34–54; BMI 33.0
[2025-04-07] MEDS: PERIDEX 0.12% ORAL RINSE 15 ML PO (06:46)
[2025-04-07] MEDS: BACTROBAN NASAL 1 GRAM NASAL (06:46)
[2025-04-07 07:12] LABS: Hematocrit 31.8 % (37.0-47.0); Hemoglobin 10.9 g/dL (12.0-16.0); Mean Corp Hgb Conc. 34.3 g/dL (33.0-37.0); Mean Corpuscular Volume 99.1 fL (81.0-99.0); Mean Platelet Volume 9.5 fL (7.4-10.4); Platelet Count 183 10^3/uL (130-400); Red Blood Cell Count 3.21 10^6/uL (4.20-5.40); Red Cell Dist. Width 12.9 % (11.5-14.5); White Blood Cell Count 7.4 10^3/uL (4.8-10.8)
[2025-04-07 07:17] LABS: Glucose - Point of Care 131 mg/dl (70-99)
[2025-04-07 07:26] LABS: APTT 26.1 Sec (23.4-35.0); INR 0.92; PT 12.9 Sec (11.4-14.6)
[2025-04-07 07:36] LABS: Blood Urea Nitrogen 32 mg/dl (7-17); Calcium 9.3 mg/dl (8.4-10.2); Carbon Dioxide 27 mmol/L (22-30); Chloride 103 mmol/L (98-107); Estimated Creatinine Clearance 20 ml/min; Glucose 153 mg/dl (70-99); Potassium 4.2 mmol/L (3.5-5.1); Sodium 140 mmol/L (135-145); eGFR 19.69
--- NOTE | 2025-04-07 08:56 | OR.RPT ---
Operative Report
Operative Report
PROCEDURE DATE: 04/07/2025
Preoperative diagnosis:
1. End-stage renal disease on hemodialysis.
2. Status post left upper extremity arteriovenous fistula with difficulty with cannulation.
Postoperative diagnosis: Same
Procedure: Superficialization of left upper extremity brachiocephalic arteriovenous fistula outflow vein.
Surgeon: Christopher
Small Business Consultant: ADOLFO Weber, required for all aspects of procedure including assistance with traction/countertraction, assistance with closure.
Complications: None
Anesthesia: General
Indications for procedure:
Difficulty accessing the left upper extremity fistula. Flow volume reasonable, size of vein reasonable. Slightly increased depth throughout the mid to proximal upper arm. Risk/benefit/alternatives of superficialization fully discussed. Patient
understood all wished to proceed.
Description of procedure:
Patient was identified brought to the operating room placed on the table in supine position. After the adequate administration of anesthesia she was prepped and draped in the standard surgical fashion. A standard preoperative timeout was
undertaken and everybody was in agreement the plan. A longitudinal incision was made in the left distal upper arm following the course of the cephalic outflow vein. Just beyond the antecubital fossa the vein was already superficial and I did not
need to extend the incision to there. However just beyond where it was very superficial and palpable, I began the incision. This incision was carried through the skin subcutaneous tissue with electrocautery. The cephalic vein was identified
slightly deeper in the subcutaneous space. The depth was slightly deeper at least a centimeter and moderate subcutaneous fatty tissue noted anterior to it likely this explains the difficulty with cannulation. I continued to extend the incision up
towards the proximal upper arm. Electrocautery then used to dissect through the subcutaneous tissues. Once I had exposed the entirety of the anterior surface of the cephalic vein, I then completely mobilized the cephalic vein throughout the field.
Any branches were ligated between silk ties and then divided. Once I fully mobilized the vein and it was raised up, I then achieved full hemostasis throughout the subcutaneous bed from which the vein had been mobilized. I then confirmed
hemostasis and irrigated. I then closed the deeper layers using interrupted 2-0 Vicryl followed by interrupted 3-0 Vicryl. Next the vein was laid on top of the remaining incision site now having been superficial lysed. The skin at edges were
mobilized if needed with the electrocautery. Once this was done, I had enough laxity in the skin edges to then close over the vein. We did this using a running 4-0 Monocryl subcuticular stitch. Dermabond was applied. The patient tolerated
procedure well. She had an excellent thrill in the fistula throughout the entirety of the case. All sponge, needle, instrument counts were correct at the end of the case. The patient was transported recovery room in stable condition.
[2025-04-07 09:15] LABS: Glucose - Point of Care 137 mg/dl (70-99)
[2025-04-07] MEDS: DILAUDID 0.5 MG IV (09:21)
--- NOTE | 2025-04-07 10:18 | TRANSFER ---
Received Report from MARGOT Wilkerson in PACU, patient on way.
--- NOTE | 2025-04-07 10:39 | SUR.PHASEI ---
Dr Palm and Elvira Stubbs Computer Hardware Engineer updated on BP and meds - no treatment changes. Discharge to phase 2 in manager labor delivery
== END 2025-04-07 13:06 | disposition home or self-care (01) ==
LOC: CATH 06:12
PROVIDERS: ATTENDING PHYSICIAN Surgery Vascular Surgery; FAMILY PHYSICIAN Nurse Practitioner Family
DX: T82.898D Other specified complication of vascular prosthetic devices, implants and grafts, subsequent encounter (principal); Y83.2 Surgical operation with anastomosis, bypass or graft as the cause of abnormal reaction of the patient, or of later complication, without mention of misadventure at the time of the procedure; I12.0 Hypertensive chronic kidney disease with stage 5 chronic kidney disease or end stage renal disease; E11.22 Type 2 diabetes mellitus with diabetic chronic kidney disease; N18.6 End stage renal disease; Z99.2 Dependence on renal dialysis; Z79.4 Long term (current) use of insulin
CPT/HCPCS: 36832; 80048; 82962; 85027; 85610; 85730; 86850; 86900; 86901; 93005

== ENCOUNTER → 2025-06-24 12:28 | Outpatient (REF) | payer MEDICARE, SELFPAY | LOC: HWRAD 12:28 | PROVIDERS: ATTENDING PHYSICIAN Surgery Vascular Surgery; FAMILY PHYSICIAN Nurse Practitioner Family | DX: I77.0 Arteriovenous fistula, acquired (principal) | CPT/HCPCS: 93990 ==